=== PATIENT | female | born 1935 | race Caucasian/White ===

== ENCOUNTER 2016-05-23 19:43 | Observation (INO) | payer MEDICARE, BC ==
[~2016-05-23] VITALS: Ht 165.1 cm; Wt 73.3 kg
[~2016-05-23 19:43] MED LIST: AMLO10TA2 PO; ASPI325T PO; B12-1CHW CHEW; BENI20TA5 PO; CLON0.2D T-DERMAL; DONE10TA7 PO; LOTE0.5S RIGHT EYE; MECL-62 PO; MEMA1TAB2 PO; METO50TA PO; PRAD150C PO; SPIR25TA PO; ZOLO25TA PO
[2016-05-23 20:08] VITALS: BP 138/70; PULSE 59; RESP 18; TEMP 97.6; O2SAT 98
[2016-05-23] MEDS ORDERED: SODIUM CHLORIDE 0.9% FLUSH 5 ML FLUSH IVF PRN (20:45)
--- NOTE | 2016-05-23 20:59 | PD ---
HPI Chief Complaint: GI Complaint Time Seen by Provider: 20:33 Travel History International Travel<30 days: No Contact w/Intl Traveler<30days: No Traveled to known affect area: No History of Present Illness HPI 80-year-old female here for evaluation of bright red blood per rectum. Patient notices symptoms yesterday. Chart review shows that the patient has history of hemorrhoids. She is having some rectal discomfort. She states that she notices the blood on the toilet paper as well as in her toilet bowl. Chart review also shows that she is on Pradaxa and aspirin, however the patient does not believe she is taking his medications any more. No chest pain or dyspnea. No lightheadedness or syncopal episodes. Patient has dementia. Apparently she goes to her neighbor's house twice a day where her neighbor administers her medications. It is unclear if she is still on Pradaxa and aspirin. PFSH Past Medical History Asthma: No Blood Disorders: No Anxiety: Yes Depression: No Heart Rhythm Problems: Yes Cancer: No Cardiovascular Problems: Yes (HTN) High Cholesterol: Yes Chemotherapy: No Chest Pain: Yes Congestive Heart Failure: No COPD: Yes Cerebrovascular Accident: Yes Coronary Artery Disease: Yes Dementia: Yes Diabetes: Yes Patient Takes Glucophage: No Diminished Hearing: Yes Endocrine: Yes Gastrointestinal Disorders: No GERD: Yes Genitourinary: No Hypertension: Yes Immune Disorder: No Medical other: Yes (PT CONFUSED REGARDING HX, POOR HISTORIAN, STATES " I CANT REMEMBER " ) Musculoskeletal: No Neurologic: Yes (CASAS'S PALSY, "black out spells", vertigo ) Psychiatric: No Reproductive: No Respiratory: No Immunizations Current: Yes Radiation Therapy: No Sleep Apnea: No Thyroid Disease: No Tetanus Vaccination: < 5 Years Influenza Vaccination: Yes : 2 Para: 2 Past Surgical History Appendectomy: Yes Cholecystectomy: Yes Coronary Stent: Yes Eye Surgery: Yes (RIGHT EYE LENS IMPLANT) Hysterectomy: Yes Joint Replacement: Yes (BILATERAL KNEE REPLACEMENT) Tonsillectomy: Yes Other Surgery: Yes Social History Alcohol Use: No Tobacco Use: No Substance Use: No Allergies-Medications (Allergen,Severity, Reaction): Coded Allergies: Codeine (Verified Allergy, Severe, ITCHING; PALPITATIONS, 03/08/16) Darvon (Verified Allergy, Severe, ITCHING; PALPITATIONS, 03/08/16) Keflex (Verified Allergy, Severe, ITCHING; PALPITATIONS, 03/08/16) Penicillin (Verified Allergy, Severe, ITCHING; PALPITATIONS, 03/08/16) Sulfa (Verified Allergy, Severe, ITCHING; PALPITATIONS, 03/08/16) Uncoded Allergies: FLUORESCEIN DYE (Allergy, Severe, DIZZINESS; PASSED OUT; PALPITATIONS, 04/30) RED ANTS (Allergy, Severe, RASH; DIFFICULTY BREATHING; ITCHING, 04/30/07) Reported Meds & Prescriptions Reported Meds & Active Scripts Active Meclizine (Meclizine HCl) 25 Mg Tab 25 Mg PO TID PRN 10 Days Reported Lotemax Opth Drops (Loteprednol Etabonate) 0.5 % Soln 1 Drop RIGHT EYE DAILY Pradaxa (Dabigatran) 150 Mg Cap 150 Mg PO BID [id number] (Methylcobalamin) 1 Mg Chew 1 Mg CHEW DAILY Aspirin 325 Mg Tab 325 Mg PO DAILY Amlodipine (Amlodipine Besylate) 10 Mg Tab 10 Mg PO DAILY Metoprolol Tartrate 50 Mg Tab 50 Mg PO BID Spironolactone 25 Mg Tab 25 Mg PO DAILY Donepezil 10 Mg Tab 10 Mg PO DAILY Clonidine 168 HR Patch (Clonidine HCl) 0.2 Mg/24 Hr Patch 1 Patch T-DERMAL Q7D Memantine 10 Mg Tab 10 Mg PO BID Benicar (Olmesartan) 20 Mg Tab 20 Mg PO DAILY Zoloft (Sertraline HCl) 25 Mg Tab 50 Mg PO DAILY Review of Systems Except as stated in HPI: all other systems reviewed are Neg Physical Exam Narrative GENERAL: Well-developed, well-nourished, comfortable, no acute distress. SKIN: Warm and dry. HEAD: Atraumatic. Normocephalic. EYES: Pupils equal and round. No scleral icterus. No injection or drainage. ENT: Mucous membranes pink and moist. CARDIOVASCULAR: Regular rate and rhythm. No murmur appreciated. RESPIRATORY: No accessory muscle use. Clear to auscultation. Breath sounds equal bilaterally. GASTROINTESTINAL: Abdomen soft, non-tender, nondistended. RECTUM: Bright red blood per rectum. External skin tags. No masses. No fissures. MUSCULOSKELETAL: No obvious deformities. No clubbing. No cyanosis. No edema. NEUROLOGICAL: Awake and alert. No obvious cranial nerve deficits. Motor grossly within normal limits. Normal speech. PSYCHIATRIC: Appropriate mood and affect; insight and judgment normal. Data Data Last Documented VS Vital Signs Date Time Temp Pulse Resp B/P Pulse Ox O2 Delivery O2 Flow Rate FiO2 05/23/16 20:08 97.6 59 18 138/70 98 Orders Complete Blood Count With Diff (05/23/16 20:45) Comprehensive Metabolic Panel (05/23/16 20:45) Lipase (05/23/16 20:45) Prothrombin Time / Inr (Pt) (05/23/16 20:45) Act Partial Throm Time (Ptt) (05/23/16 20:45) Urinalysis - C+S If Indicated (05/23/16 20:45) Iv Access Insert/Monitor (05/23/16 20:45) Ecg Monitoring (05/23/16 20:45) Oximetry (05/23/16 20:45) Sodium Chloride 0.9% Flush (Ns Flush) (05/23/16 20:45) Type And Screen (05/23/16 20:45) Labs Laboratory Tests Test 05/23/16 21:00 White Blood Count 8.7 TH/MM3 Red Blood Count 4.17 MIL/MM3 Hemoglobin 12.3 GM/DL Hematocrit 36.7 % Mean Corpuscular Volume 88.1 FL Mean Corpuscular Hemoglobin 29.5 PG Mean Corpuscular Hemoglobin 33.5 % Concent Red Cell Distribution Width 12.9 % Platelet Count 205 TH/MM3 Mean Platelet Volume 7.9 FL Neutrophils (%) (Auto) 59.2 % Lymphocytes (%) (Auto) 24.9 % Monocytes (%) (Auto) 10.1 % Eosinophils (%) (Auto) 5.2 % Basophils (%) (Auto) 0.6 % Neutrophils # (Auto) 5.0 TH/MM3 Lymphocytes # (Auto) 2.2 TH/MM3 Monocytes # (Auto) 0.9 TH/MM3 Eosinophils # (Auto) 0.5 TH/MM3 Basophils # (Auto) 0.1 TH/MM3 CBC Comment DIFF FINAL Differential Comment Prothrombin Time 11.2 SEC Prothromb Time International 1.0 RATIO Ratio Activated Partial 33.6 SEC Thromboplast Time Urine Color YELLOW Urine Turbidity CLEAR Urine pH 6.0 Urine Specific [place] 1.020 Urine Protein NEG mg/dL Urine Glucose (UA) NEG mg/dL Urine Ketones NEG mg/dL Urine Occult Blood LARGE Urine Nitrite NEG Urine Bilirubin NEG Urine Leukocyte Esterase TRACE Urine RBC 4-9 /hpf Urine WBC 0-2 /hpf Urine Squamous Epithelial > 8 /hpf Cells Urine Calcium Oxalate Crystals RARE /hpf Urine Hyaline Casts 3-5 /lpf Microscopic Urinalysis Comment CULT NOT INDICATED Sodium Level 143 MEQ/L Potassium Level 4.2 MEQ/L Chloride Level 112 MEQ/L Carbon Dioxide Level 22.0 MEQ/L Anion Gap 9 MEQ/L Blood Urea Nitrogen 22 MG/DL Creatinine 1.20 MG/DL Estimat Glomerular Filtration 43 ML/MIN Rate Random Glucose 99 MG/DL Calcium Level 9.3 MG/DL Total Bilirubin 0.3 MG/DL Aspartate Amino Transf 19 U/L (AST/SGOT) Alanine Aminotransferase 21 U/L (ALT/SGPT) Alkaline Phosphatase 64 U/L Total Protein 7.7 GM/DL Albumin 3.6 GM/DL Lipase 264 U/L [facility] Medical Decision Making Medical Screen Exam Complete: Yes Emergency Medical Condition: Yes Differential Diagnosis Lower GI bleed, hemorrhoids, mass, anemia Narrative Course Vital signs show heart rate 59, blood pressure 130/70, pulse ox 90% on room air , oral temp of 97.6F. CBC shows WBC 8.7, hemoglobin 12.2, hematocrit 36.7, platelets 205. CMP is remarkable for BUN 22, creatinine 1.2, GFR 43 which is around her baseline, otherwise unremarkable. Lipase is 264. Coags are within normal limits. UA shows large occult blood, trace site esterase, 4-9 RBCs, rare calcium Esme Crystal, hyaline casts, not suggestive of UTI. Patient does have bright red blood per rectum.. Hemoglobin is within normal limits. She is also not tachycardic or hypotensive. It is unclear if she is still taking her Pradaxa and aspirin or not. The patient also has dementia and lives alone. At this point I believe it is a good idea to admit the patient overnight for observation for serial H&H's and reassessment in the morning. Case discussed with [facility] hospitalist admitting physician Dr. Queen who has agreed to admit the patient to his service for overnight observation. Diagnosis Primary Impression: Rectal bleed Admitting Information Admitting Physician Requests: Observation Jayesh Albrecht MD May 23, 2016 20:59
[2016-05-23 21:21] LABS: BASOPHIL # 0.1 TH/MM3 (0-0.2); BASOPHIL % 0.6 % (0.0-2.0); EOSINOPHIL # 0.5 TH/MM3 (0-0.4); EOSINOPHIL % 5.2 % (0.0-4.0); HEMATOCRIT 36.7 % (35.0-46.0); HEMO FLAGS DIFF FINAL; LYMPH % 24.9 % (9.0-44.0); LYMPHOCYTE # 2.2 TH/MM3 (1.0-4.8); MEAN CELL VOLUME 88.1 FL (80.0-100.0); MEAN CORPUSCULAR HEMOGLOBIN 29.5 PG (27.0-34.0); MEAN CORPUSCULAR HGB CONC 33.5 % (32.0-36.0); MONO % 10.1 % (0.0-8.0); NEUT % 59.2 % (16.0-70.0); PLATELET COUNT 205 TH/MM3 (150-450); RED BLOOD COUNT 4.17 MIL/MM3 (4.00-5.30); RED CELL DISTRIBUTION WIDTH 12.9 % (11.6-17.2); WHITE BLOOD COUNT 8.7 TH/MM3 (4.0-11.0)
[2016-05-23 21:24] LABS: BLOOD, URINE LARGE (NEG); GLUCOSE,URINE NEG (NEG); KETONE, URINE NEG (NEG); NITRITE,URINE NEG (NEG)
[2016-05-23 21:29] LABS: CHLORIDE 112 MEQ/L (98-107); POTASSIUM 4.2 MEQ/L (3.5-5.1); SODIUM (NA) 143 MEQ/L (136-145); URINE COLOR YELLOW (YELLW/STRAW)
[2016-05-23 21:30] LABS: SQUAMOUS EPITHELIAL CELL URINE > 8 /hpf (0-5); WBC, URINE 0-2 /hpf (0-5)
[2016-05-23 21:31] LABS: CALCIUM OXALATE CRYSTALS,URINE RARE /hpf; COMMENT (UR) CULT NOT INDICATED; CULTURE IF INDICATED CULT NOT INDICATED
[2016-05-23 21:33] LABS: ANION GAP 9 MEQ/L (5-15); BLOOD UREA NITROGEN 22 MG/DL (7-18)
[2016-05-23 21:34] LABS: APTT (PATIENT) 33.6 SEC (24.3-30.1); PROTHROMBIN TIME - PATIENT 11.2 SEC (9.8-11.6)
[2016-05-23 21:35] LABS: ALT (GPT) 21 U/L (10-53)
[2016-05-23 21:36] LABS: AST (GOT) 19 U/L (15-37); GLOMERULAR FILTRATION RATE 43 ML/MIN (>89)
[2016-05-23 21:37] LABS: TOTAL BILIRUBIN ADULT 0.3 MG/DL (0.2-1.0)
[2016-05-23 21:38] LABS: ALKALINE PHOSPHATASE 64 U/L (45-117)
[2016-05-23 22:11] VITALS: O2SAT 98
[2016-05-23 22:12] VITALS: BP 121/65; PULSE 58; RESP 18; O2SAT 98
[2016-05-23] MEDS ORDERED: BRIN1SUS2 EACH EYE (22:33)
[2016-05-23 22:55] VITALS: BP 119/63; PULSE 61; RESP 18; O2SAT 98
[2016-05-23] MEDS: SODIUM CHLOR 0.9% 1000 ML INJ 1,000 ML IV SCH (23:57)
[2016-05-24] VITALS (10 sets, daily range): BP systolic 100–137; BP diastolic 47–79; PULSE 53–64; RESP 16–20; TEMP 96.8–97.8; O2SAT 96–98
[2016-05-24 06:47] LABS: HEMATOCRIT 33.6 % (35.0-46.0); MEAN CELL VOLUME 87.2 FL (80.0-100.0); MEAN CORPUSCULAR HEMOGLOBIN 28.7 PG (27.0-34.0); MEAN CORPUSCULAR HGB CONC 32.9 % (32.0-36.0); PLATELET COUNT 189 TH/MM3 (150-450); RED BLOOD COUNT 3.85 MIL/MM3 (4.00-5.30); RED CELL DISTRIBUTION WIDTH 12.8 % (11.6-17.2); REVIEW FLAG FINAL; WHITE BLOOD COUNT 6.1 TH/MM3 (4.0-11.0)
[2016-05-24 06:57] LABS: POTASSIUM 4.3 MEQ/L (3.5-5.1)
[2016-05-24 06:58] LABS: BICARBONATE 23.3 MEQ/L (21.0-32.0)
[2016-05-24] MEDS: DONEPEZIL HCL 5 MG TAB PO SCH (08:54)
[2016-05-24] MEDS: SPIRONOLACTONE 25 MG TAB PO SCH (08:55)
[2016-05-24] MEDS: SERTRALINE HCL 50 MG TAB PO SCH (08:55)
[2016-05-24] MEDS: MEMANTINE HCL 10 MG TAB PO SCH ×2 (08:55→20:08)
[2016-05-24] MEDS: LOSARTAN 50 MG TAB PO SCH (08:56)
[2016-05-24] MEDS ORDERED: LOTEPREDNOL OPTH EACH EYE SCH (09:00)
[2016-05-24] MEDS ORDERED: OLMESARTAN 20 MG PO SCH (09:00)
[2016-05-24] MEDS: METOPROLOL TARTRATE 50 MG TAB PO SCH ×2 (09:01→20:08)
[2016-05-24] MEDS: SODIUM CHLOR 0.9% 1000 ML INJ 1,000 ML IV SCH ×2 (11:25→23:20)
[2016-05-24] MEDS: BRINZOLAMIDE EACH EYE SCH (20:08)
[2016-05-24] MEDS: BRIMONIDINE EACH EYE SCH (20:08)
[2016-05-25] VITALS (9 sets, daily range): BP systolic 118–138; BP diastolic 63–73; PULSE 55–67; RESP 16–18; TEMP 96.3–98.4; O2SAT 95–98
[2016-05-25] MEDS: SODIUM CHLOR 0.9% 1000 ML INJ 1,000 ML IV SCH (05:57)
[2016-05-25] MEDS: METOPROLOL TARTRATE 50 MG TAB PO SCH ×2 (08:59→21:08)
[2016-05-25] MEDS: BRIMONIDINE EACH EYE SCH ×2 (08:59→21:07)
[2016-05-25] MEDS: SPIRONOLACTONE 25 MG TAB PO SCH (08:59)
[2016-05-25] MEDS: MEMANTINE HCL 10 MG TAB PO SCH ×2 (08:59→21:08)
[2016-05-25] MEDS: SERTRALINE HCL 50 MG TAB PO SCH (08:59)
[2016-05-25] MEDS: LOTEPREDNOL OPTH RIGHT EYE SCH (08:59)
[2016-05-25] MEDS: BRINZOLAMIDE EACH EYE SCH ×2 (08:59→21:07)
[2016-05-25] MEDS: DONEPEZIL HCL 5 MG TAB PO SCH (08:59)
[2016-05-25] MEDS: LOSARTAN 50 MG TAB PO SCH (08:59)
--- NOTE | 2016-05-25 11:56 | HHI.PR ---
Subjective History of Present Illness i am ok no N/V no abd pain appetite is ok no fever or chills no cp or sob offers no other c/o forgetful /poor support at home Vitals/Results Intake & Output 05/24/16 05/24/16 05/25/16 15:00 23:00 07:00 Intake Total 1006 ml 655 ml Balance 1006 ml 655 ml Intake Oral 450 ml IV Total 556 ml 655 ml # Voids 1 6 Vital Signs Vital Signs Date Time Temp Pulse Resp B/P Pulse Ox O2 Delivery O2 Flow Rate FiO2 05/25/16 08:00 96.9 67 18 138/73 96 05/25/16 07:00 62 05/25/16 04:00 96.3 59 18 131/66 96 05/25/16 00:38 97.1 58 16 118/68 95 05/24/16 21:50 53 05/24/16 21:10 97.2 60 20 120/65 98 05/24/16 16:00 96.9 61 18 131/79 98 05/24/16 12:00 96.8 58 18 125/67 97 CBC/BMP: 05/24/16 0615 05/24/16 0615 Physical Exam General General Appearance: No Acute Distress, Comfortable Eyes Eye Exam: Pupils Equal, Sclera White, Extraocular Movement Intact Ears & Nose Ears & Nose Exam: Auditory Canals Normal, Nasal Mucosa [place] Throat Throat Exam: Oral Mucosa [place] & Moist Neck Neck Exam: Neck Supple, Trachea Midline Pulmonary Resp Exam: Clear Bilaterally, Breath Sounds Equal Cardiology CV Exam: Regular, Normal Sinus Rhythm Gastrointestinal/Abdomen GI Exam: Soft, Non-Tender, Bowel Sounds Present Integumentary Skin Exam: Warm, Dry Extremeties Extremities Exam: No Edema, Pedal Pulses Palpable Neurologic Neuro Exam: Alert, Awake, Speech Clear, Moving All Extremities Psychiatric Psych Exam: Appropriate Responses PUD Prophylasis PUD Prophylaxis: Protonix Assessment/Plan Assessment/Plan ASSESSMENT LGI bleed Hx A fib HTN HLP Dementia Depression 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
[2016-05-25 12:21] LABS: HEMATOCRIT 35.5 % (35.0-46.0); MEAN CELL VOLUME 86.8 FL (80.0-100.0); MEAN CORPUSCULAR HEMOGLOBIN 29.3 PG (27.0-34.0); MEAN CORPUSCULAR HGB CONC 33.8 % (32.0-36.0); PLATELET COUNT 199 TH/MM3 (150-450); RED BLOOD COUNT 4.09 MIL/MM3 (4.00-5.30); RED CELL DISTRIBUTION WIDTH 12.8 % (11.6-17.2); REVIEW FLAG FINAL; WHITE BLOOD COUNT 6.3 TH/MM3 (4.0-11.0)
[2016-05-25 12:30] LABS: POTASSIUM 3.9 MEQ/L (3.5-5.1)
--- NOTE | 2016-05-25 12:55 | PD.CONS ---
HPI History of Present Illness This is a 80 year old female who presents with complaints of bright red blood per rectum this occurred the day prior to admission she denies any abdominal pain nausea vomiting diarrhea constipation the patient reports a history of hemorrhoids she also reports having had a colonoscopy years ago she's not aware of what was found at that point in time the patient apparently is supposed to be on Pradaxa and aspirin but it's not clear as to whether she takes these medications or not The onset was apparently sudden and the intensity was mild with no associated symptoms and no exacerbating or alleviating factors PFSH Past Medical History Anxiety, high cholesterol, hypertension COPD, CVA, CAD, diabetes, dementia, reflux, Domingo's palsy Past Surgical History Appendectomy, cholecystectomy, coronary artery stenting, eye surgery, hysterectomy, bilateral knee replacement, tonsillectomy Coded Allergies: Codeine (Verified Allergy, Severe, ITCHING; PALPITATIONS, 03/08/16) Darvon (Verified Allergy, Severe, ITCHING; PALPITATIONS, 03/08/16) Keflex (Verified Allergy, Severe, ITCHING; PALPITATIONS, 03/08/16) Penicillin (Verified Allergy, Severe, ITCHING; PALPITATIONS, 03/08/16) Sulfa (Verified Allergy, Severe, ITCHING; PALPITATIONS, 03/08/16) Uncoded Allergies: FLUORESCEIN DYE (Allergy, Severe, DIZZINESS; PASSED OUT; PALPITATIONS, 04/30) RED ANTS (Allergy, Severe, RASH; DIFFICULTY BREATHING; ITCHING, 04/30/07) Medications Meclizine (Meclizine HCl) 25 Mg Tab 25 Mg PO TID PRN 10 Days Lotemax Opth Drops (Loteprednol Etabonate) 0.5 % Soln 1 Drop RIGHT EYE DAILY Pradaxa (Dabigatran) 150 Mg Cap 150 Mg PO BID [id number] (Methylcobalamin) 1 Mg Chew 1 Mg CHEW DAILY Aspirin 325 Mg Tab 325 Mg PO DAILY Amlodipine (Amlodipine Besylate) 10 Mg Tab 10 Mg PO DAILY Metoprolol Tartrate 50 Mg Tab 50 Mg PO BID Spironolactone 25 Mg Tab 25 Mg PO DAILY Donepezil 10 Mg Tab 10 Mg PO DAILY Clonidine 168 HR Patch (Clonidine HCl) 0.2 Mg/24 Hr Patch 1 Patch T-DERMAL Q7D Memantine 10 Mg Tab 10 Mg PO BID Benicar (Olmesartan) 20 Mg Tab 20 Mg PO DAILY Zoloft (Sertraline HCl) 25 Mg Tab 50 Mg PO DAILY Family History Noncontributory Social History No alcohol or tobacco Review of Systems ROS Review of systems Patient denies any headache dizziness blurry vision, denies any chest pain shortness of breath cough fever chills, Denies any palpitations or fatigue denies any polyuria dysuria hematuria, denies any numbness tingling or weakness, denies any skin rash pruritus or jaundice, denies any easy bruising or bleeding tendency, denies any recent change in mood GI Exam Vitals I&O Vital Signs Date Time Temp Pulse Resp B/P Pulse Ox O2 Delivery O2 Flow Rate FiO2 05/25/16 08:00 96.9 67 18 138/73 96 05/25/16 07:00 62 05/25/16 04:00 96.3 59 18 131/66 96 05/25/16 00:38 97.1 58 16 118/68 95 05/24/16 21:50 53 05/24/16 21:10 97.2 60 20 120/65 98 05/24/16 16:00 96.9 61 18 131/79 98 I/O 05/24/16 05/24/16 05/24/16 05/25/16 05/25/16 05/25/16 07:00 15:00 23:00 07:00 15:00 23:00 Intake Total 1006 ml 655 ml Balance 1006 ml 655 ml Intake Oral 450 ml IV Total 556 ml 655 ml # Voids 1 6 Laboratory Test 05/25/16 12:16 White Blood Count 6.3 TH/MM3 Red Blood Count 4.09 MIL/MM3 Hemoglobin 12.0 GM/DL Hematocrit 35.5 % Mean Corpuscular Volume 86.8 FL Mean Corpuscular Hemoglobin 29.3 PG Mean Corpuscular Hemoglobin 33.8 % Concent Red Cell Distribution Width 12.8 % Platelet Count 199 TH/MM3 Mean Platelet Volume 7.3 FL Physical Examination HEENT: Pupils round and reactive to light; normocephalic; atraumatic; no jaundice. Throat is clear. NECK: Neck is supple, no JVD, no lymphadenopathy. CHEST: Chest is clear to auscultation and percussion. CARDIAC: Regular rate and rhythm with no murmur gallop or rubs. ABDOMEN: Soft, nondistended, nontender; no hepatosplenomegaly; bowel sounds are present in all four quadrants. EXTREMITIES: No clubbing, cyanosis, or edema. SKIN: Normal; no rash; no jaundice. TRADER FIXED INCOME: No focal deficits; alert and oriented times 3 she is aware of who the president is and where she is at and what day it is Assessment and Plan Plan Rectal bleeding of unclear etiology Patient is advised colonoscopy Agree with current supportive care Monitor labs and transfuse as needed Chinedu Gomez MD May 25, 2016 12:55
[2016-05-25] MEDS ORDERED: PEG (High)/E-LYTE SOLN 4000 ML BTL PO ONE (13:30)
[2016-05-26] VITALS (8 sets, daily range): BP systolic 105–142; BP diastolic 51–72; PULSE 53–59; RESP 16–20; TEMP 96.6–98.7; O2SAT 96–100
[2016-05-26] MEDS: SODIUM CHLOR 0.9% 1000 ML INJ 1,000 ML IV SCH ×2 (04:40→10:06)
[2016-05-26 06:08] LABS: HEMATOCRIT 35.3 % (35.0-46.0); MEAN CELL VOLUME 87.7 FL (80.0-100.0); MEAN CORPUSCULAR HEMOGLOBIN 28.8 PG (27.0-34.0); MEAN CORPUSCULAR HGB CONC 32.9 % (32.0-36.0); PLATELET COUNT 196 TH/MM3 (150-450); RED BLOOD COUNT 4.03 MIL/MM3 (4.00-5.30); RED CELL DISTRIBUTION WIDTH 12.8 % (11.6-17.2); REVIEW FLAG FINAL; WHITE BLOOD COUNT 6.5 TH/MM3 (4.0-11.0)
[2016-05-26] MEDS: LOSARTAN 50 MG TAB PO SCH (08:15)
[2016-05-26] MEDS: DONEPEZIL HCL 5 MG TAB PO SCH (08:15)
[2016-05-26] MEDS: SPIRONOLACTONE 25 MG TAB PO SCH (08:15)
[2016-05-26] MEDS: METOPROLOL TARTRATE 50 MG TAB PO SCH (08:15)
[2016-05-26] MEDS: BRINZOLAMIDE EACH EYE SCH (08:16)
[2016-05-26] MEDS: BRIMONIDINE EACH EYE SCH (08:16)
[2016-05-26] MEDS: SERTRALINE HCL 50 MG TAB PO SCH (08:16)
[2016-05-26] MEDS: MEMANTINE HCL 10 MG TAB PO SCH (08:16)
[2016-05-26] MEDS: LOTEPREDNOL OPTH RIGHT EYE SCH (08:17)
--- NOTE | 2016-05-26 12:50 | GIPROC ---
[facility] [address] [place] [address], [id number] COLONOSCOPY PROCEDURE REPORT EXAM DATE: 05/26/2016 PATIENT NAME: Jessica Miller MR #: [id number] BIRTHDATE: 1935 ENDOSCOPIST: Que Sanchez MD ORDER #: [id number] STAND IN: Marlin Camacho and Hima Arias STATUS: inpatient INDICATIONS: The patient is a 80 yr old female here for a colonoscopy due to anal bleeding PROCEDURE PERFORMED: Colonoscopy, diagnostic MEDICATIONS: None and Per Anesthesia. PREP QUALITY: fair ESTIMATED BLOOD LOSS: None CONSENT: The patient understands the risks and benefits of the procedure and understands that these risks include, but are not limited to: sedation, allergic reaction, infection, perforation and/or bleeding. Alternative means of evaluation and treatment include, among others: physical exam, x-rays, and/or surgical intervention. The patient elects to proceed with this endoscopic procedure. medical equipment was checked for proper function. Hand hygiene and appropriate measures for infection prevention was taken. After the risks, benefits and alternatives of the procedure were thoroughly explained, Informed consent was verified, confirmed and timeout was successfully executed by the treatment team. A digital exam revealed an anal fissure The Pentax [id number] endoscope was introduced through the anus and advanced to the cecum, which was identified by both the appendix and ileocecal valve. The instrument was then slowly withdrawn as the colon was fully examined. COLON FINDINGS: Small anal fissure, no bleeding. Mild diverticulosis was noted in the sigmoid colon. Some stool throughout the colon. The colon mucosa was otherwise normal. No sign of active bleed. Retroflexed views revealed an anal fissure and Retroflexed views revealed medium internal hemorrhoids The scope was then completely withdrawn from the patient and the procedure terminated. ADVERSE EVENTS: There were no complications. IMPRESSIONS: 1. Small anal fissure, no bleeding 2. Mild diverticulosis was noted in the sigmoid colon 3. Some stool throughout the colon 4. The colon mucosa was otherwise normal 5. No sign of active bleed 6. Retroflexed views revealed an anal fissure 7. Retroflexed views revealed medium internal hemorrhoids 8. Revealed an anal fissure RECOMMENDATIONS: 1. Yearly hemoccult 2. High fiber diet 3. Avoid constipation ok to feed patient ok to DC home from GI stand RECALL: Return 5 years Colonoscopy Que Sanchez MD eSigned: Que Sanchez MD 05/26/2016 12:49 PM cc: PATIENT NAME: Jessica Miller MR#: [id number]
--- NOTE | 2016-05-26 12:53 | HHI.GIFU ---
Subjective Remarks doing well. no active bleed, tolerated prep Objective Vitals I&O Vital Signs Date Time Temp Pulse Resp B/P Pulse Ox O2 Delivery O2 Flow Rate FiO2 05/26/16 12:00 98.7 55 20 124/67 96 05/26/16 11:57 98.2 55 16 142/71 100 05/26/16 08:00 96.9 55 20 140/72 96 05/26/16 07:34 53 05/26/16 04:00 97.6 59 16 110/60 97 05/26/16 00:00 96.6 55 18 105/51 96 05/25/16 20:53 98.4 58 16 119/65 96 05/25/16 20:09 62 05/25/16 16:00 98.0 67 18 135/63 98 05/25/16 15:00 60 I/O 05/25/16 05/25/16 05/25/16 05/26/16 05/26/16 05/26/16 07:00 15:00 23:00 07:00 15:00 23:00 Intake Total 655 ml 850 ml 1280 ml 764 ml Balance 655 ml 850 ml 1280 ml 764 ml Intake Oral 850 ml IV Total 655 ml 1280 ml 764 ml # Voids 6 4 3 1 # Bowel Movements 1 3 1 Laboratory Laboratory Tests Test 05/26/16 05:28 White Blood Count 6.5 Red Blood Count 4.03 Hemoglobin 11.6 Hematocrit 35.3 Mean Corpuscular Volume 87.7 Mean Corpuscular Hemoglobin 28.8 Mean Corpuscular Hemoglobin 32.9 Concent Red Cell Distribution Width 12.8 Platelet Count 196 Mean Platelet Volume 7.9 Physical Exam HEENT: Pupils round and reactive to light; normocephalic; atraumatic; no jaundice. Throat is clear. NECK: Neck is supple, no JVD, no lymphadenopathy. CHEST: Chest is clear to auscultation and percussion. CARDIAC: Regular rate and rhythm with no murmur gallop or rubs. ABDOMEN: Soft, nondistended, nontender; no hepatosplenomegaly; bowel sounds are present in all four quadrants. EXTREMITIES: No clubbing, cyanosis, or edema. SKIN: Normal; no rash; no jaundice. SPRAY MAKER: No focal deficits; alert and oriented times three. Assessment and Plan Plan Rectal bleeding most likely from fissure or hemorrhoids, no active bleed now on colonoscopy today may feeds patient preoperation H avoid constipation Agree with current supportive care ok to DC home from GI stand Que Sanchez MD May 26, 2016 12:53
[2016-05-26] MEDS ORDERED: PETROLEUM/SHARK LIVER OIL 60 GM TUBE RECTAL PRN (13:00)
[2016-05-26] MEDS ORDERED: PROPOFOL 200 MG/20 ML AMP IV ONE (13:02)
--- NOTE | 2016-05-26 15:06 | HHI.PR ---
Subjective History of Present Illness feels well no N/V no abd pain no more bleeding appetite is ok no fever or chills no cp or sob offers no other c/o forgetful Vitals/Results Intake & Output 05/25/16 05/25/16 05/26/16 15:00 23:00 07:00 Intake Total 850 ml 1280 ml 764 ml Balance 850 ml 1280 ml 764 ml Intake Oral 850 ml IV Total 1280 ml 764 ml # Voids 4 3 1 # Bowel Movements 1 3 Vital Signs Vital Signs Date Time Temp Pulse Resp B/P Pulse Ox O2 Delivery O2 Flow Rate FiO2 05/26/16 13:15 57 16 139/69 100 05/26/16 13:00 57 16 146/72 100 05/26/16 12:50 98.0 58 16 133/63 100 05/26/16 12:00 98.7 55 20 124/67 96 05/26/16 11:57 98.2 55 16 142/71 100 05/26/16 08:00 96.9 55 20 140/72 96 05/26/16 07:34 53 05/26/16 04:00 97.6 59 16 110/60 97 05/26/16 00:00 96.6 55 18 105/51 96 05/25/16 20:53 98.4 58 16 119/65 96 05/25/16 20:09 62 05/25/16 16:00 98.0 67 18 135/63 98 CBC/BMP: 05/26/16 0528 05/25/16 1216 Lab Results Laboratory Tests Test 05/26/16 05:28 White Blood Count 6.5 TH/MM3 Red Blood Count 4.03 MIL/MM3 Hemoglobin 11.6 GM/DL Hematocrit 35.3 % Mean Corpuscular Volume 87.7 FL Mean Corpuscular Hemoglobin 28.8 PG Mean Corpuscular Hemoglobin 32.9 % Concent Red Cell Distribution Width 12.8 % Platelet Count 196 TH/MM3 Mean Platelet Volume 7.9 FL Physical Exam General General Appearance: No Acute Distress, Comfortable Eyes Eye Exam: Pupils Equal, Sclera White, Extraocular Movement Intact Ears & Nose Ears & Nose Exam: Auditory Canals Normal, Nasal Mucosa [place] Throat Throat Exam: Oral Mucosa [place] & Moist Neck Neck Exam: Neck Supple, Trachea Midline Pulmonary Resp Exam: Clear Bilaterally, Breath Sounds Equal Cardiology CV Exam: Regular, Normal Sinus Rhythm Gastrointestinal/Abdomen GI Exam: Soft, Non-Tender, Bowel Sounds Present Integumentary Skin Exam: Warm, Dry Extremeties Extremities Exam: No Edema, Pedal Pulses Palpable Neurologic Neuro Exam: Alert, Awake, Speech Clear, Moving All Extremities Psychiatric Psych Exam: Appropriate Responses PUD Prophylasis PUD Prophylaxis: Protonix Assessment/Plan Assessment/Plan ASSESSMENT LGI bleed Hx A fib HTN HLP Hx TIA Dementia Depression 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
--- NOTE | 2016-05-26 15:27 | HHI.FF ---
Face to Face Verification Diagnosis: (1) Rectal bleed (2) Paroxysmal atrial fibrillation (3) Hypertension (4) Hyperlipemia (5) Dementia Physical Therapy Order: Evaluate and Treat, Improve ambulation, Strength and gait training Home Health Nursing Order: Medical education Medication education-adverse effect Cashier Receptionist Order: To Evaluate: Living conditions/environment, Support services Order: To Provide: Long range planning I have seen patient Jessica Miller on 05/26/16. My clinical findings support the need for the requested home health care services because: Ltd mobility - disease progression Deconditioned w/ increased weakness Limited ability to care for self I certify that my clinical findings support that this patient is homebound because: Impaired cognitive ability/safety Unsafe to leave home unassisted Unable to use public transportation Mary Grace Queen MD May 26, 2016 15:27
--- NOTE | 2016-06-03 09:09 | MD ---
cc: SHIRAZ DONALD ADMISSION DATE: 05/23/2016 DISCHARGE DATE: 05/26/[address] Yoli Robles FINAL DIAGNOSIS 1. Lower GI bleeding/hematochezia. 2. Internal hemorrhoids and fissures. 3. Diverticulosis 4. History of atrial fibrillation. 5. Hypertension 6. History of TIA. 7. Depression 8. History of dementia. 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 She came to the hospital on May 23, 2016 complaining of lower GI bleeding of two or three days duration. Upon arrival, she was noted to be hemodynamically stable. She was Pradaxa for her atrial fibrillation. Due to her advanced age and need for anticoagulation, she was admitted to the hospital for observation. We monitored her H&H and put her on IV fluids, consulted GI. Dr. Gomez saw the patient. He recommended diagnostic colonoscopy which was done this morning by his partner. Colonoscopy showed evidence of internal hemorrhoids and fissure. No evidence of mass lesions, polyp or active bleeding. The patient's hemoglobin and hematocrit remained stable during her stay in the hospital. The patient has a high score due to hypertension, age, and prior history of TIA, about 4 and recommended to resume Pradaxa. marketing services manager were consulted to arrange home health care to assist the patient in ablation and gait training. The patient lives at home with her son and she has a caregiver who raised some concern about relationship between mother and son and we are asking manager social responsibility to arrange home visit by social security benefits interviewer to evaluate the patient's safety at home. DISCHARGE DISPOSITION The patient is being discharged today in stable condition. She will go home with home health care. DISCHARGE MEDICATIONS See attached med reconciliation sheet. FOLLOWUP The patient is advised to follow up with her primary care physician, Dr. Aga Robles in five to seven days. She is to also follow up with GI in one months. MD SHANT De Jesus/PILI /4:37 PM 8:57 AM
== END 2016-05-26 17:08 | disposition home or self-care (01) ==
LOC: PHED 19:43 → PHEDA 22:05 → PHEDH 05-24 01:05 → PH3B 05-24 12:18
PROVIDERS: ADMIT Specialist; ATTEND Specialist
DX: K57.31 Diverticulosis of large intestine without perforation or abscess with bleeding (principal); K60.2 Anal fissure, unspecified; I25.10 Atherosclerotic heart disease of native coronary artery without angina pectoris; I10 Essential (primary) hypertension; I48.91 Unspecified atrial fibrillation; J44.9 Chronic obstructive pulmonary disease, unspecified; E11.9 Type 2 diabetes mellitus without complications; E78.5 Hyperlipidemia, unspecified; F03.90 Unspecified dementia, unspecified severity, without behavioral disturbance, psychotic disturbance, mood disturbance, and anxiety; F32.9 Major depressive disorder, single episode, unspecified; H54.41 Blindness, right eye, normal vision left eye; E78.00 Pure hypercholesterolemia, unspecified; H91.90 Unspecified hearing loss, unspecified ear; M19.90 Unspecified osteoarthritis, unspecified site; K21.9 Gastro-esophageal reflux disease without esophagitis; Z79.01 Long term (current) use of anticoagulants; Z86.73 Personal history of transient ischemic attack (TIA), and cerebral infarction without residual deficits; Z95.5 Presence of coronary angioplasty implant and graft; Z96.653 Presence of artificial knee joint, bilateral
CPT/HCPCS: 00810; 45378; 80048; 80053; 81001; 83690; 85025; 85027; 85610; 85730; 86850; 86900; 86901; 99284; G0378; J7030

== ENCOUNTER 2016-06-02 06:05 | Observation (INO) | payer MEDICARE, BC ==
[2016-06-02] VITALS (10 sets, daily range): BP systolic 118–163; BP diastolic 64–76; PULSE 19–63; RESP 16–22; O2SAT 95–100
[~2016-06-02] VITALS: Ht 162.6 cm; Wt 70.0 kg
[~2016-06-02 06:05] MED LIST changes: -ASPI325T PO; +BRIN1SUS2 EACH EYE; -CLON0.2D T-DERMAL; -MECL-62 PO
[2016-06-02] MEDS ORDERED: SODIUM CHLORIDE 0.9% FLUSH 10 ML FLUSH IVF PRN (06:45)
--- NOTE | 2016-06-02 06:51 | PD ---
HPI Chief Complaint: Chest Pain Time Seen by Provider: 06:37 Travel History International Travel<30 days: No Contact w/Intl Traveler<30days: No Traveled to known affect area: No History of Present Illness HPI The patient's 80 years old and arrives by EMS. She is feeling quite dizzy at home. She had retrosternal chest pain. Shortness of breath reported. Nausea reported. The pain severity was 8/10 decreased to 3/10 after nitroglycerin. Second nitroglycerin was given and upon arrival to the ER the patient has no chest pain. She took a baby aspirin. He complains of dizziness in the ER however is unable to establish lightheadedness or vertigo on exam. She does not recall the names of her medications. According to EMS the patient is at her baseline mental status which is AOx2, unaware of time. PFSH Past Medical History Asthma: No Blood Disorders: No Anxiety: Yes Depression: No Heart Rhythm Problems: Yes Cancer: No Cardiovascular Problems: Yes (HTN) High Cholesterol: Yes Chemotherapy: No Chest Pain: No Congestive Heart Failure: No COPD: Yes Cerebrovascular Accident: Yes Coronary Artery Disease: Yes Dementia: Yes Diabetes: Yes Patient Takes Glucophage: No (Patient unable to verify medications at this time ) Diminished Hearing: Yes Endocrine: Yes Gastrointestinal Disorders: Yes (BLOOD IN STOOL PER PATIENT REPORT) GERD: Yes Genitourinary: No Hypertension: Yes Immune Disorder: No Musculoskeletal: No Neurologic: Yes (CASAS'S PALSY, "black out spells", vertigo ) Psychiatric: Yes Reproductive: No Respiratory: Yes Immunizations Current: Yes Radiation Therapy: No Sleep Apnea: No Thyroid Disease: No Tetanus Vaccination: Unknown Influenza Vaccination: Yes : 2 Para: 2 Past Surgical History Appendectomy: Yes Cholecystectomy: Yes Coronary Stent: Yes Eye Surgery: Yes (RIGHT EYE LENS IMPLANT) Hysterectomy: Yes Joint Replacement: Yes (BILATERAL KNEE REPLACEMENT) Tonsillectomy: Yes Other Surgery: Yes Social History Alcohol Use: No Tobacco Use: No Substance Use: No Allergies-Medications (Allergen,Severity, Reaction): Coded Allergies: Codeine (Verified Allergy, Severe, ITCHING; PALPITATIONS, 06/02/16) Darvon (Verified Allergy, Severe, ITCHING; PALPITATIONS, 06/02/16) Keflex (Verified Allergy, Severe, ITCHING; PALPITATIONS, 06/02/16) Penicillin (Verified Allergy, Severe, ITCHING; PALPITATIONS, 06/02/16) Sulfa (Verified Allergy, Severe, ITCHING; PALPITATIONS, 06/02/16) Uncoded Allergies: FLUORESCEIN DYE (Allergy, Severe, DIZZINESS; PASSED OUT; PALPITATIONS, 04/30) RED ANTS (Allergy, Severe, RASH; DIFFICULTY BREATHING; ITCHING, 04/30/07) Reported Meds & Prescriptions Reported Meds & Active Scripts Active Reported Simbrinza Opth Drops (Brinzolamide-Brimonidine Opth Drops) 1-0.2% Susp 1 Drop EACH EYE BID Lotemax Opth Drops (Loteprednol Etabonate) 0.5 % Soln 1 Drop RIGHT EYE DAILY Pradaxa (Dabigatran) 150 Mg Cap 150 Mg PO DAILY [id number] (Methylcobalamin) 1 Mg Chew 1 Mg CHEW DAILY Amlodipine (Amlodipine Besylate) 10 Mg Tab 10 Mg PO DAILY Metoprolol Tartrate 50 Mg Tab 50 Mg PO BID Spironolactone 25 Mg Tab 25 Mg PO DAILY Donepezil 10 Mg Tab 10 Mg PO DAILY Memantine 10 Mg Tab 10 Mg PO BID Benicar (Olmesartan) 20 Mg Tab 20 Mg PO DAILY Zoloft (Sertraline HCl) 25 Mg Tab 50 Mg PO DAILY Review of Systems Except as stated in HPI: all other systems reviewed are Neg Physical Exam Narrative GENERAL: 80-year-old female pleasant well-nourished well-developed SKIN: Focused skin assessment warm/dry. HEAD: Atraumatic. Normocephalic. EYES: Pupils equal and round. No scleral icterus. No injection or drainage. No nystagmus ENT: No nasal bleeding or discharge. Mucous membranes pink and moist. NECK: Trachea midline. No JVD. CARDIOVASCULAR: Regular rate and rhythm. No murmur appreciated. RESPIRATORY: No accessory muscle use. Clear to auscultation. Breath sounds equal bilaterally. GASTROINTESTINAL: Abdomen soft, non-tender, nondistended. Hepatic and splenic margins not palpable. MUSCULOSKELETAL: No obvious deformities. No clubbing. No cyanosis. No edema. NEUROLOGICAL: Awake and alert. No obvious cranial nerve deficits. Motor grossly within normal limits. Normal speech. PSYCHIATRIC: Appropriate mood and affect; insight and judgment normal. Data Data Last Documented VS Vital Signs Date Time Temp Pulse Resp B/P Pulse Ox O2 Delivery O2 Flow Rate FiO2 06/02/16 06:13 62 06/02/16 06:07 22 118/64 100 Orders Electrocardiogram (06/02/16 06:37) Ckmb (Isoenzyme) Profile (06/02/16 06:37) Complete Blood Count With Diff (06/02/16 06:37) Comprehensive Metabolic Panel (06/02/16 06:37) Magnesium (Mg) (06/02/16 06:37) Prothrombin Time / Inr (Pt) (06/02/16 06:37) Act Partial Throm Time (Ptt) (06/02/16 06:37) Troponin I (06/02/16 06:37) Lipase (06/02/16 06:37) Chest, Single Ap (06/02/16 06:37) Ecg Monitoring (06/02/16 06:37) Iv Access Insert/Monitor (06/02/16 06:37) Oximetry (06/02/16 06:37) Oxygen Administration (06/02/16 06:37) Sodium Chloride 0.9% Flush (Ns Flush) (06/02/16 06:45) Urinalysis - C+S If Indicated (06/02/16 06:37) Labs Laboratory Tests Test 06/02/16 06:44 White Blood Count 6.8 TH/MM3 Red Blood Count 3.82 MIL/MM3 Hemoglobin 11.4 GM/DL Hematocrit 32.8 % Mean Corpuscular Volume 85.9 FL Mean Corpuscular Hemoglobin 30.0 PG Mean Corpuscular Hemoglobin 34.9 % Concent Red Cell Distribution Width 13.6 % Platelet Count 220 TH/MM3 Mean Platelet Volume 8.3 FL Neutrophils (%) (Auto) 63.1 % Lymphocytes (%) (Auto) 22.9 % Monocytes (%) (Auto) 8.9 % Eosinophils (%) (Auto) 4.6 % Basophils (%) (Auto) 0.5 % Neutrophils # (Auto) 4.3 TH/MM3 Lymphocytes # (Auto) 1.6 TH/MM3 Monocytes # (Auto) 0.6 TH/MM3 Eosinophils # (Auto) 0.3 TH/MM3 Basophils # (Auto) 0.0 TH/MM3 CBC Comment DIFF FINAL Differential Comment Prothrombin Time 10.6 SEC Prothromb Time International 1.0 RATIO Ratio Activated Partial 26.4 SEC Thromboplast Time MDM Medical Decision Making Medical Screen Exam Complete: Yes Emergency Medical Condition: Yes Medical Record Reviewed: Yes Differential Diagnosis NSTEMI, unstable angina, coronary vasospasm, PE, PTX, aortic dissection, pericarditis, myocarditis, endocarditis, PNA, esophageal disease, aneurysm, musculoskeletal etiologies, anxiety, cocaine/sympathomimetic abuse Narrative Course Chest pain evaluation initiated. Oncoming provider to follow-up results and disposition. Wil Cuevas MD Jun 02, 2016 06:51
[2016-06-02 07:06] LABS: AUTOMATED NEUTROPHIL # 4.3 TH/MM3 (1.8-7.7); BASOPHIL % 0.5 % (0.0-2.0); EOSINOPHIL # 0.3 TH/MM3 (0-0.4); EOSINOPHIL % 4.6 % (0.0-4.0); HEMATOCRIT 32.8 % (35.0-46.0); HEMO FLAGS DIFF FINAL; LYMPH % 22.9 % (9.0-44.0); LYMPHOCYTE # 1.6 TH/MM3 (1.0-4.8); MEAN CELL VOLUME 85.9 FL (80.0-100.0); MEAN CORPUSCULAR HGB CONC 34.9 % (32.0-36.0); MONO % 8.9 % (0.0-8.0); NEUT % 63.1 % (16.0-70.0); PLATELET COUNT 220 TH/MM3 (150-450); RED BLOOD COUNT 3.82 MIL/MM3 (4.00-5.30); RED CELL DISTRIBUTION WIDTH 13.6 % (11.6-17.2); WHITE BLOOD COUNT 6.8 TH/MM3 (4.0-11.0)
[2016-06-02 07:14] LABS: APTT (PATIENT) 26.4 SEC (24.3-30.1); PROTHROMBIN TIME - PATIENT 10.6 SEC (9.8-11.6)
[2016-06-02 07:24] LABS: ANION GAP 11 MEQ/L (5-15); AST (GOT) 12 U/L (15-37); BICARBONATE 21.8 MEQ/L (21.0-32.0); BLOOD UREA NITROGEN 15 MG/DL (7-18); CHLORIDE 110 MEQ/L (98-107); GLOMERULAR FILTRATION RATE 51 ML/MIN (>89); MAGNESIUM 1.9 MG/DL (1.5-2.5); POTASSIUM 3.8 MEQ/L (3.5-5.1); SODIUM (NA) 143 MEQ/L (136-145)
[2016-06-02 07:26] LABS: BACTERIA, URINE RARE /hpf; BLOOD, URINE NEG (NEG); COMMENT (UR) CULT NOT INDICATED; CULTURE IF INDICATED CULT NOT INDICATED; GLUCOSE,URINE NEG (NEG); HYALINE CAST, URINE 1 /lpf (RARE); KETONE, URINE NEG (NEG); NITRITE,URINE NEG (NEG); PH, URINE 6.5 (5.0-8.5); SQUAMOUS EPITHELIAL CELL URINE 2 /hpf (0-5); URINE COLOR LIGHT-YELLOW (YELLW/STRAW)
[2016-06-02 07:29] LABS: ALKALINE PHOSPHATASE 50 U/L (45-117); ALT (GPT) 16 U/L (10-53); TOTAL BILIRUBIN ADULT 0.3 MG/DL (0.2-1.0)
--- NOTE | 2016-06-02 07:29 | RADRPT ---
EXAM DATE/TIME: 06/02/2016 06:56 [facility] COMPARISON: No previous studies available for comparison. INDICATIONS : Chest pain. MEDICAL HISTORY : Chronic obstructive pulmonary disease. Hypertension Diabetes mellitus type II. SURGICAL HISTORY : Coronary artery stent. ENCOUNTER: Initial ACUITY: 1 day PAIN SCORE: 5/10 LOCATION: Bilateral chest FINDINGS: A single view of the chest demonstrates the lungs to be symmetrically aerated without evidence of mas s, infiltrate or effusion. The cardiomediastinal contours are unremarkable. Osseous structures are intact. CONCLUSION: 1. Mildly tortuous aorta. No focal consolidation or effusion. Remote left rib fractures. Jed Hardin MD on June 02, 2016 at 7:07 Board Certified Radiologist. This report was verified electronically.
[2016-06-02 07:31] LABS: CREATINE KINASE 44 U/L (26-192)
--- NOTE | 2016-06-02 09:48 | PD ---
Data Data Last Documented VS Vital Signs Date Time Temp Pulse Resp B/P Pulse Ox O2 Delivery O2 Flow Rate FiO2 06/02/16 09:00 52 22 159/70 95 06/02/16 07:00 Room Air Orders Electrocardiogram (06/02/16 06:37) Ckmb (Isoenzyme) Profile (06/02/16 06:37) Complete Blood Count With Diff (06/02/16 06:37) Comprehensive Metabolic Panel (06/02/16 06:37) Magnesium (Mg) (06/02/16 06:37) Prothrombin Time / Inr (Pt) (06/02/16 06:37) Act Partial Throm Time (Ptt) (06/02/16 06:37) Troponin I (06/02/16 06:37) Lipase (06/02/16 06:37) Chest, Single Ap (06/02/16 06:37) Ecg Monitoring (06/02/16 06:37) Iv Access Insert/Monitor (06/02/16 06:37) Oximetry (06/02/16 06:37) Oxygen Administration (06/02/16 06:37) Sodium Chloride 0.9% Flush (Ns Flush) (06/02/16 06:45) Urinalysis - C+S If Indicated (06/02/16 06:37) Labs Laboratory Tests Test 06/02/16 06/02/16 06:44 06:45 White Blood Count 6.8 TH/MM3 Red Blood Count 3.82 MIL/MM3 Hemoglobin 11.4 GM/DL Hematocrit 32.8 % Mean Corpuscular Volume 85.9 FL Mean Corpuscular Hemoglobin 30.0 PG Mean Corpuscular Hemoglobin 34.9 % Concent Red Cell Distribution Width 13.6 % Platelet Count 220 TH/MM3 Mean Platelet Volume 8.3 FL Neutrophils (%) (Auto) 63.1 % Lymphocytes (%) (Auto) 22.9 % Monocytes (%) (Auto) 8.9 % Eosinophils (%) (Auto) 4.6 % Basophils (%) (Auto) 0.5 % Neutrophils # (Auto) 4.3 TH/MM3 Lymphocytes # (Auto) 1.6 TH/MM3 Monocytes # (Auto) 0.6 TH/MM3 Eosinophils # (Auto) 0.3 TH/MM3 Basophils # (Auto) 0.0 TH/MM3 CBC Comment DIFF FINAL Differential Comment Prothrombin Time 10.6 SEC Prothromb Time International 1.0 RATIO Ratio Activated Partial 26.4 SEC Thromboplast Time Sodium Level 143 MEQ/L Potassium Level 3.8 MEQ/L Chloride Level 110 MEQ/L Carbon Dioxide Level 21.8 MEQ/L Anion Gap 11 MEQ/L Blood Urea Nitrogen 15 MG/DL Creatinine 1.04 MG/DL Estimat Glomerular Filtration 51 ML/MIN Rate Random Glucose 99 MG/DL Calcium Level 9.0 MG/DL Magnesium Level 1.9 MG/DL Total Bilirubin 0.3 MG/DL Aspartate Amino Transf 12 U/L (AST/SGOT) Alanine Aminotransferase 16 U/L (ALT/SGPT) Alkaline Phosphatase 50 U/L Total Creatine Kinase 44 U/L Troponin I LESS THAN 0.02 NG/ML Total Protein 6.6 GM/DL Albumin 3.1 GM/DL Lipase 326 U/L Urine Color LIGHT-YELLOW Urine Turbidity CLEAR Urine pH 6.5 Urine Specific [place] 1.007 Urine Protein NEG mg/dL Urine Glucose (UA) NEG mg/dL Urine Ketones NEG mg/dL Urine Occult Blood NEG Urine Nitrite NEG Urine Bilirubin NEG Urine Urobilinogen LESS THAN 2.0 MG/DL Urine Leukocyte Esterase NEG Urine RBC 1 /hpf Urine WBC 1 /hpf Urine Squamous Epithelial 2 /hpf Cells Urine Bacteria RARE /hpf Urine Hyaline Casts 1 /lpf Microscopic Urinalysis Comment CULT NOT INDICATED MDM Supervised Visit with ELIZA: No Narrative Course Case checked out to me by Dr. Cuevas at 7 AM. I have evaluated the patient. She is currently chest pain-free but did have some sternal area chest heaviness and she specifically would like it evaluated. Her lab studies are normal including troponin and CK. Her EKG shows no acute ST elevation. She is in a sinus rhythm without significant ectopy. Chest x- ray shows nothing emergent. Patient does not want to do outpatient follow-up. She specifically came in for evaluation of the chest pain so she will be a 23 hour observation in chest pain center to rule out cardiac cause of her symptoms. Diagnosis Primary Impression: Chest pain Qualified Code: R07.2 - Precordial pain Admitting Information Admitting Physician Requests: Observation Gabo Lal MD Jun 02, 2016 09:47
[2016-06-02] MEDS ORDERED: SODIUM CHLORIDE 0.9% FLUSH 5 ML FLUSH IVF PRN (10:15)
[2016-06-02] MEDS ORDERED: ACETAMINOPHEN 500 MG CPLT PO PRN (10:15)
[2016-06-02] MEDS ORDERED: ONDANSETRON HCL 4 MG/2 ML VIAL IV PRN (10:15)
--- NOTE | 2016-06-02 10:18 | HHI.HP ---
[facility] Primary Care Physician Yoli Carmona Chief Complaint Chest pain History of Present Illness This is an 80-year-old female that presents to ED via [facility] with a complaint of chest pain. She states that began early this morning. She states that it woke her up. Points to the center of her chest to indicate where the discomfort was. Does not really know how felt or how long it last. She states she cannot remember that. Denied being short of breath, nauseous, or diaphoretic with her symptoms. She follows with Dr. Cedillo a wire products inspector on an outpatient basis. States her last stress test were years ago. States she hasn't seen her wire products inspector in about a year. Review of Systems General: Patient denies fevers, chills recent, and recent travel HEENT: Patient denies headache, sore throat, difficulty swallowing. Cardiovascular: Has the chest discomfort as mentioned above. Denies sensation of heart beating rapidly or irregularly. No syncope. Denies diaphoresis. Respiratory: Denies shortness of breath or inspirational chest discomfort. Denies coughing wheezing or hemoptysis. GI: Patient denies nausea, vomiting, diarrhea, abdominal pain, bloody stools. Musculoskeletal: Patient denies joint pain or edema. Denies calf pain or edema. Neurovascular: Patient denies numbness, tingling, weakness in extremities. Denies headache. Endocrine: Denies polyuria and polydipsia. Hematologic: Denies easy bruising. Skin: Denies rash or itching. Past Family Social History Allergies: Coded Allergies: Codeine (Verified Allergy, Severe, ITCHING; PALPITATIONS, 06/02/16) Darvon (Verified Allergy, Severe, ITCHING; PALPITATIONS, 06/02/16) Keflex (Verified Allergy, Severe, ITCHING; PALPITATIONS, 06/02/16) Penicillin (Verified Allergy, Severe, ITCHING; PALPITATIONS, 06/02/16) Sulfa (Verified Allergy, Severe, ITCHING; PALPITATIONS, 06/02/16) Uncoded Allergies: FLUORESCEIN DYE (Allergy, Severe, DIZZINESS; PASSED OUT; PALPITATIONS, 04/30) RED ANTS (Allergy, Severe, RASH; DIFFICULTY BREATHING; ITCHING, 04/30/07) Past Medical History Hypertension, dementia, paroxysmal A. fib with an episode of A. fib with RVR December 2015, Domingo's palsy. Denies known CAD, diabetes, and hyperlipidemia. Past Surgical History Bilateral knees, eyes, appendectomy, cholecystectomy, tonsillectomy, and hysterectomy. Reported Medications Reported Meds & Active Scripts Active Reported Simbrinza Opth Drops (Brinzolamide-Brimonidine Opth Drops) 1-0.2% Susp 1 Drop EACH EYE BID Lotemax Opth Drops (Loteprednol Etabonate) 0.5 % Soln 1 Drop RIGHT EYE DAILY Pradaxa (Dabigatran) 150 Mg Cap 150 Mg PO DAILY [id number] (Methylcobalamin) 1 Mg Chew 1 Mg CHEW DAILY Amlodipine (Amlodipine Besylate) 10 Mg Tab 10 Mg PO DAILY Metoprolol Tartrate 50 Mg Tab 50 Mg PO BID Spironolactone 25 Mg Tab 25 Mg PO DAILY Donepezil 10 Mg Tab 10 Mg PO DAILY Memantine 10 Mg Tab 10 Mg PO BID Benicar (Olmesartan) 20 Mg Tab 20 Mg PO DAILY Zoloft (Sertraline HCl) 25 Mg Tab 50 Mg PO DAILY Active Ordered Medications Current Medications Medications (Trade) Dose Ordered Sig/Christian Route Start Time Stop Time Status Last Admin (NS Flush) 2 ml UNSCH PRN IVF 06/02/16 06:45 (NS Flush) 2 ml UNSCH PRN IVF 06/02/16 10:15 UNV (NS Flush) 2 ml BID IVF 06/02/16 21:00 UNV (Tylenol) 500 mg Q4H PRN PO 06/02/16 10:15 UNV (Zofran Inj) 4 mg Q6H PRN IV 06/02/16 10:15 UNV Family History She is not aware of family history of CAD. Social History Patient is a nonsmoker. She denies alcohol or illicit drugs. Physical Exam Vital Signs Vital Signs Date Time Temp Pulse Resp B/P Pulse Ox O2 Delivery O2 Flow Rate FiO2 06/02/16 09:00 52 22 159/70 95 06/02/16 08:00 58 20 149/67 97 06/02/16 07:00 54 19 163/76 97 Room Air 06/02/16 06:13 62 06/02/16 06:07 63 22 118/64 100 Physical Exam GENERAL: This is a well-nourished, well-developed patient, in no apparent distress. Patient speaks in clear complete sentences. Patient is pleasant. HEENT: Head is atraumatic and normocephalic. Neck is supple without lymphadenopathy and trachea is midline. No JVD or carotid bruits. CARDIOVASCULAR: Regular rate and rhythm without murmurs, gallops, or rubs. RESPIRATORY: Chest wall is tender. The discomfort is reproduced with even light palpation. Clear to auscultation. Breath sounds equal bilaterally. No wheezes, rales, or rhonchi. No use of accessory muscles. GASTROINTESTINAL: Abdomen is nontender, nondistended. Abdomen soft. No obvious pulsatile mass or bruit. No CVA tenderness. Strong femoral pulses bilaterally. Normal bowel sounds in all quadrants. MUSCULOSKELETAL: Patient is moving upper and lower extremities freely. No calf tenderness or edema, no Homans sign. Strong pulses in upper and lower extremities. NEUROLOGICAL: Patient is alert and oriented to person and place. She is not aware of month date or year. Cranial nerves 2-12 are grossly intact. No focal deficits and speech is clear. SKIN: No rash and turgor is normal. Laboratory Laboratory Tests Test 06/02/16 06/02/16 06:44 06:45 White Blood Count 6.8 Red Blood Count 3.82 Hemoglobin 11.4 Hematocrit 32.8 Mean Corpuscular Volume 85.9 Mean Corpuscular Hemoglobin 30.0 Mean Corpuscular Hemoglobin 34.9 Concent Red Cell Distribution Width 13.6 Platelet Count 220 Mean Platelet Volume 8.3 Neutrophils (%) (Auto) 63.1 Lymphocytes (%) (Auto) 22.9 Monocytes (%) (Auto) 8.9 Eosinophils (%) (Auto) 4.6 Basophils (%) (Auto) 0.5 Neutrophils # (Auto) 4.3 Lymphocytes # (Auto) 1.6 Monocytes # (Auto) 0.6 Eosinophils # (Auto) 0.3 Basophils # (Auto) 0.0 CBC Comment DIFF FINAL Differential Comment Prothrombin Time 10.6 Prothromb Time International 1.0 Ratio Activated Partial 26.4 Thromboplast Time Sodium Level 143 Potassium Level 3.8 Chloride Level 110 Carbon Dioxide Level 21.8 Anion Gap 11 Blood Urea Nitrogen 15 Creatinine 1.04 Estimat Glomerular Filtration 51 Rate Random Glucose 99 Calcium Level 9.0 Magnesium Level 1.9 Total Bilirubin 0.3 Aspartate Amino Transf 12 (AST/SGOT) Alanine Aminotransferase 16 (ALT/SGPT) Alkaline Phosphatase 50 Total Creatine Kinase 44 Troponin I LESS THAN 0.02 Total Protein 6.6 Albumin 3.1 Lipase 326 Urine Color LIGHT-YELLOW Urine Turbidity CLEAR Urine pH 6.5 Urine Specific [place] 1.007 Urine Protein NEG Urine Glucose (UA) NEG Urine Ketones NEG Urine Occult Blood NEG Urine Nitrite NEG Urine Bilirubin NEG Urine Urobilinogen LESS THAN 2.0 Urine Leukocyte Esterase NEG Urine RBC 1 Urine WBC 1 Urine Squamous Epithelial 2 Cells Urine Bacteria RARE Urine Hyaline Casts 1 Microscopic Urinalysis Comment CULT NOT INDICATED Result Diagram: 06/02/1664306/02/16643 Imaging Last Impressions Chest X-Ray 06/02/16636 Signed Impressions: Service Date/Time: Thursday, June 02, 2016 06:56 - CONCLUSION: 1. Mildly tortuous aorta. No focal consolidation or effusion. Remote left rib fractures. Jed Hardin MD Course Initial EKG has sinus rhythm without significant ST segment depressions or elevations. Assessment and Plan Assessment and Plan * Chest pain: Patient will have serial cardiac enzymes and EKGs for ruling out purposes. Further treatment plan will be decided after Dr. Jarod John evaluates this patient in the chest pain center. * Hypertension: Continue current medication. Scott Hernandez Jun 02, 2016 10:17
[2016-06-02 11:00] LABS: CREATINE KINASE 57 U/L (26-192)
--- NOTE | 2016-06-02 13:23 | EKG ---
Date Performed: 06/02/2016 Time Performed: 10:10:22 PTAGE: 80 years EKG: Sinus rhythm MARKED LEFT AXIS DEVIATION INTRAVENTRICULAR CONDUCTION DELAY SEPTAL MYOCARDIAL INFARCTION ABNORMAL E CG PREVIOUS TRACING : 06/02/2016 06.15 Since previous tracing, no significant change noted DOCTOR: Jarod John Interpretating Date/Time 06/05/2016 06:52:04
[2016-06-02] MEDS ORDERED: DABIGATRAN ETEXILATE 150 MG CAP PO SCH (14:00)
[2016-06-02 14:21] LABS: CREATINE KINASE 48 U/L (26-192)
[2016-06-02] MEDS ORDERED: REGADENOSON INJ 0.4 MG/5 ML SYR ONE (15:00)
--- NOTE | 2016-06-02 16:26 | RADRPT ---
EXAM DATE/TIME: 06/02/2016 14:30 CORRECTION Corrected on: June 03, 2016; Added medication [facility] COMPARISON: No previous studies available for comparison. INDICATIONS : Retrosternal chest pain with dyspnea and nausea for 1 day. Angina. DOSE: 25.7 mCi Tc99m Myoview at stress. 8.1 mCi Tc99m Myoview at rest. 0.4 mg Lexiscan STRESS SYMPTOMS: Chest tightness and lightheaded. MEDICATIONS: 100 mg Aminophylline IV EJECTION FRACTION: 59% MEDICAL HISTORY : Myocardial infarction. Hypercholesterolemia. Diabetes mellitus type 2. GERD, Hypertension, COPD. Stro ke. SURGICAL HISTORY : Cholecystectomy. Hysterectomy. Coronary artery stent. ENCOUNTER: Initial ACUITY: 1 day PAIN SCALE: 8/10 LOCATION: Retrosternal chest TECHNIQUE: The patient underwent pharmacologic stress with infusion of prescribed dose. Continuous ECG tracing was monitored during stress. Gated SPECT imaging was performed after stress and conventional SPECT i maging was performed at rest. The examination was performed on a SPECT/CT scanner, both attenuation and non-corrected datasets were reviewed. FINDINGS: DISTRIBUTION: The maximum perfused segment at stress is in the anterior wall. PERFUSION STUDY: There is redistribution in the inferoseptal region towards the base. This involves the small segment myocardium.. GATED STUDY: There is intact wall motion and thickening without hypokinetic or dyskinetic segments. CONCLUSION: Stress-induced ischemia inferoseptal region.. RISK CATEGORY: Low (<1% Annual Mortality Rate) Solomon Mock MD FACR on June 02, 2016 at 16:22 Board Certified Radiologist. Board Certified Radiologist. This report was verified electronically.
--- NOTE | 2016-06-02 16:36 | HHI.DCPOC ---
Discharge Care Plan Diagnosis: (1) Chest pain (2) Hypertension (3) Paroxysmal atrial fibrillation Goals to Promote Your Health * To prevent worsening of your condition and complications * To maintain your health at the optimal level Directions to Meet Your Goals Take your medications as prescribed Follow your dietary instruction Follow activity as directed Keep your appointments as scheduled Take your immunizations and boosters as scheduled If your symptoms worsen call your PCP, if no PCP go to Urgent Care Center or Emergency Room Smoking is Dangerous to Your Health. Avoid second hand smoke Call the 24-hour hour crisis hotline for domestic abuse at Scott Hernandez Jun 02, 2016 16:36
--- NOTE | 2016-06-02 17:48 | EKG ---
Date Performed: 06/02/2016 Time Performed: 06:15:18 PTAGE: 80 years EKG: Sinus rhythm MARKED LEFT AXIS DEVIATION Left bundle branch block. Since previous tracing, no significant change n oted ABNORMAL ECG PREVIOUS TRACING : 03/08/2016 20.46 DOCTOR: Wiley Rodriguez Interpretating Date/Time 06/02/2016 17:48:12
[2016-06-02] MEDS ORDERED: METOPROLOL TARTRATE 50 MG TAB PO SCH (21:00)
[2016-06-02] MEDS ORDERED: [UNRECOGNIZED DRUG - OTHER] EACH EYE SCH (21:00)
[2016-06-02] MEDS ORDERED: SODIUM CHLORIDE 0.9% FLUSH 5 ML FLUSH IVF SCH (21:00)
[2016-06-03] MEDS ORDERED: SPIRONOLACTONE 25 MG TAB PO SCH (09:00)
[2016-06-03] MEDS ORDERED: SERTRALINE HCL 50 MG TAB PO SCH (09:00)
--- NOTE | 2016-06-03 14:31 | EKG ---
Date Performed: 06/02/2016 Time Performed: 13:36:54 PTAGE: 80 years EKG: SINUS BRADYCARDIA MARKED LEFT AXIS DEVIATION POSSIBLE LEFT VENTRICULAR HYPERTROPHY POSSIBLE SEPTAL MYOCARDIAL INFARCTION ABNORMAL ECG Since PREVIOUS TRACING , no significant change noted PREVIOUS TRACIN06/02/2016 10.10 DOCTOR: Reina Alvarado Interpretating Date/Time 06/03/2016 14:29:30
--- NOTE | 2016-06-03 14:39 | TR ---
Date Performed: 06/02/2016 Time Performed: 15:06:39 DOCTOR: Reina Alvarado DRUG LIST: CLINICAL HISTORY: CHEST PAIN REASON FOR TEST: REASON FOR ENDING: OBSERVATION: CONCLUSION: Lexiscan stress test was performed under standard four minute protocol. Radionuclid e was injected one minute prior to ending the test. No electrocardiographic abormalities were present to suggest ischemia. Nuclear imaging and interpretation are pending. COMMENTS:
== END 2016-06-02 18:46 | disposition home or self-care (01) ==
LOC: NEPC 06:05 → NEDA 09:49 → NEPGCP 16:28
PROVIDERS: ADMIT Internal Medicine Cardiovascular Disease; ATTEND Internal Medicine Cardiovascular Disease
DX: R07.9 Chest pain, unspecified (principal); I10 Essential (primary) hypertension; I48.0 Paroxysmal atrial fibrillation; F03.90 Unspecified dementia, unspecified severity, without behavioral disturbance, psychotic disturbance, mood disturbance, and anxiety; G51.0 Bell's palsy; E11.9 Type 2 diabetes mellitus without complications; J44.9 Chronic obstructive pulmonary disease, unspecified; E78.00 Pure hypercholesterolemia, unspecified; I25.2 Old myocardial infarction; K21.9 Gastro-esophageal reflux disease without esophagitis; F41.9 Anxiety disorder, unspecified; Z86.73 Personal history of transient ischemic attack (TIA), and cerebral infarction without residual deficits; I25.10 Atherosclerotic heart disease of native coronary artery without angina pectoris; Z96.653 Presence of artificial knee joint, bilateral; Z95.5 Presence of coronary angioplasty implant and graft; Z88.1 Allergy status to other antibiotic agents; Z91.041 Radiographic dye allergy status; Z88.5 Allergy status to narcotic agent; Z88.0 Allergy status to penicillin; Z88.2 Allergy status to sulfonamides; Z88.8 Allergy status to other drugs, medicaments and biological substances; Z91.09 Other allergy status, other than to drugs and biological substances
CPT/HCPCS: 71010; 78452; 80053; 81001; 82550; 83690; 83735; 84484; 85025; 85610; 85730; 93005; 93017; 99285; A9502; G0378; J2785

== ENCOUNTER 2016-06-07 14:01 | Observation (INO) | payer MEDICARE, BC ==
[~2016-06-07] VITALS: Ht 165.1 cm; Wt 70.0 kg
[2016-06-07] VITALS (7 sets, daily range): BP systolic 115–145; BP diastolic 59–62; PULSE 53–61; RESP 16–20; TEMP 97.7–98.3; O2SAT 98–99
[~2016-06-07 14:01] MED LIST changes: -B12-1CHW CHEW; -BENI20TA5 PO; -DONE10TA7 PO; -MEMA1TAB2 PO
--- NOTE | 2016-06-07 14:29 | PD ---
HPI Chief Complaint: Chest Pain Time Seen by Provider: 14:27 Travel History International Travel<30 days: No Contact w/Intl Traveler<30days: No Traveled to known affect area: No History of Present Illness HPI 80-year-old female presents the emergency department via EMS with complaints of central chest pain and pressure which started earlier today. Patient has increased shortness of breath and tachypnea associated with it. She has mild nausea and complains of central headache between her eyes rated at a 4 over 10, since arriving here in the emergency department. Patient was recently admitted here and seen in the chest pain center with sestamibi stress test performed showing stress-induced ischemia in the posterior septal region on June 02. Patient is taking Pradaxa for history of atrial fibrillation. She is also on amlodipine and metoprolol. Patient's EKG in the ambulance showed no ST changes according to line palletizer. Patient is allergic to codeine, Darvon, fluorescein dye, Keflex, penicillin, red ants, and sulfa. PFSH Past Medical History Hx Anticoagulant Therapy: Yes (pradaxa) Asthma: No Blood Disorders: No Anxiety: Yes Depression: No Heart Rhythm Problems: Yes Cancer: No Cardiovascular Problems: Yes (HTN) High Cholesterol: Yes Chemotherapy: No Chest Pain: No Congestive Heart Failure: No COPD: Yes Cerebrovascular Accident: Yes Coronary Artery Disease: Yes Dementia: Yes Diabetes: Yes Diminished Hearing: Yes Endocrine: Yes Gastrointestinal Disorders: Yes (BLOOD IN STOOL PER PATIENT REPORT) GERD: Yes Genitourinary: No Hypertension: Yes Immune Disorder: No Musculoskeletal: No Neurologic: Yes (CASAS'S PALSY, "black out spells", vertigo ) Psychiatric: Yes Reproductive: No Respiratory: Yes Immunizations Current: Yes Radiation Therapy: No Sleep Apnea: No Thyroid Disease: No : 2 Para: 2 Past Surgical History Appendectomy: Yes Cholecystectomy: Yes Coronary Stent: Yes Eye Surgery: Yes (RIGHT EYE LENS IMPLANT) Hysterectomy: Yes Joint Replacement: Yes (BILATERAL KNEE REPLACEMENT) Tonsillectomy: Yes Other Surgery: Yes Social History Alcohol Use: No Tobacco Use: No Substance Use: No Allergies-Medications (Allergen,Severity, Reaction): Coded Allergies: Codeine (Verified Allergy, Severe, ITCHING; PALPITATIONS, 06/02/16) Darvon (Verified Allergy, Severe, ITCHING; PALPITATIONS, 06/02/16) Keflex (Verified Allergy, Severe, ITCHING; PALPITATIONS, 06/02/16) Penicillin (Verified Allergy, Severe, ITCHING; PALPITATIONS, 06/02/16) Sulfa (Verified Allergy, Severe, ITCHING; PALPITATIONS, 06/02/16) Uncoded Allergies: FLUORESCEIN DYE (Allergy, Severe, DIZZINESS; PASSED OUT; PALPITATIONS, 04/30) RED ANTS (Allergy, Severe, RASH; DIFFICULTY BREATHING; ITCHING, 04/30/07) Reported Meds & Prescriptions Reported Meds & Active Scripts Active Reported Simbrinza Opth Drops (Brinzolamide-Brimonidine Opth Drops) 1-0.2% Susp 1 Drop EACH EYE BID Lotemax Opth Drops (Loteprednol Etabonate) 0.5 % Soln 1 Drop RIGHT EYE DAILY Pradaxa (Dabigatran) 150 Mg Cap 150 Mg PO DAILY Amlodipine (Amlodipine Besylate) 10 Mg Tab 10 Mg PO DAILY Metoprolol Tartrate 50 Mg Tab 50 Mg PO BID Spironolactone 25 Mg Tab 25 Mg PO DAILY Zoloft (Sertraline HCl) 25 Mg Tab 50 Mg PO DAILY Review of Systems Except as stated in HPI: all other systems reviewed are Neg General / Constitutional: No: Fever, Chills Eyes: No: Visual changes HENT: No: Headaches Cardiovascular: Positive: Chest Pain or Discomfort (see history present illness.) Respiratory: Positive: Shortness of Breath (see history present illness.) Gastrointestinal: Positive: Nausea, No: Vomiting, Diarrhea, Abdominal Pain Genitourinary: No: Dysuria Musculoskeletal: No: Pain Skin: No Rash Neurologic: No: Weakness Psychiatric: No: Depression Endocrine: No: Polydipsia Hematologic/Lymphatic: No: Easy Bruising Physical Exam Narrative GENERAL: Patient appears anxious and in mild distress. SKIN: Warm and dry. Normal color. Normal turgor. No diaphoresis. HEAD: Atraumatic. Normocephalic. EYES: Pupils equal and round. No scleral icterus. No injection or drainage. ENT: No nasal bleeding or discharge. Mucous membranes pink and moist. Pharynx is clear. Airway is patent. NECK: Trachea midline. No JVD. Neck is supple nontender. CARDIOVASCULAR: Bradycardic rate and rhythm. RESPIRATORY: No accessory muscle use. Clear to auscultation. Breath sounds equal bilaterally. GASTROINTESTINAL: Abdomen soft, non-tender, nondistended. Hepatic and splenic margins not palpable. MUSCULOSKELETAL: Extremities without clubbing, cyanosis, or edema. No obvious deformities. NEUROLOGICAL: Awake and alert. No obvious cranial nerve deficits. Motor grossly within normal limits. Five out of 5 muscle strength in the arms and legs. Normal speech. PSYCHIATRIC: Appropriate mood and affect; insight and judgment normal. Data Data Last Documented VS Vital Signs Date Time Temp Pulse Resp B/P Pulse Ox O2 Delivery O2 Flow Rate FiO2 06/07/16 15:03 98 Nasal Cannula 2 06/07/16 15:03 129/61 115/59 06/07/16 14:27 64 16 06/07/16 14:23 98.3 Orders Electrocardiogram (06/07/16 ) Ckmb (Isoenzyme) Profile (06/07/16 14:29) Complete Blood Count With Diff (06/07/16 14:29) Comprehensive Metabolic Panel (06/07/16 14:29) Magnesium (Mg) (06/07/16 14:29) Prothrombin Time / Inr (Pt) (06/07/16 14:29) Act Partial Throm Time (Ptt) (06/07/16 14:29) Troponin I (06/07/16 14:29) Chest, Single Ap (06/07/16 14:29) Ecg Monitoring (06/07/16 14:29) Bilateral Bp Monitoring (06/07/16 14:29) Iv Access Insert/Monitor (06/07/16 14:29) Oximetry (06/07/16 14:29) Oxygen Administration (06/07/16 14:29) Aspirin Chew (Aspirin Chew) (06/07/16 14:30) Sodium Chloride 0.9% Flush (Ns Flush) (06/07/16 14:30) Lorazepam (Ativan) (06/07/16 14:30) Nitroglycerin Sl (Nitrostat Sl) (06/07/16 14:45) Admit Order (Ed Use Only) (06/07/16 16:15) Labs Laboratory Tests Test 06/07/16 14:30 White Blood Count 7.2 TH/MM3 Red Blood Count 4.00 MIL/MM3 Hemoglobin 11.7 GM/DL Hematocrit 34.9 % Mean Corpuscular Volume 87.3 FL Mean Corpuscular Hemoglobin 29.2 PG Mean Corpuscular Hemoglobin 33.4 % Concent Red Cell Distribution Width 13.7 % Platelet Count 254 TH/MM3 Mean Platelet Volume 8.2 FL Neutrophils (%) (Auto) 67.3 % Lymphocytes (%) (Auto) 18.8 % Monocytes (%) (Auto) 9.5 % Eosinophils (%) (Auto) 3.6 % Basophils (%) (Auto) 0.8 % Neutrophils # (Auto) 4.8 TH/MM3 Lymphocytes # (Auto) 1.3 TH/MM3 Monocytes # (Auto) 0.7 TH/MM3 Eosinophils # (Auto) 0.3 TH/MM3 Basophils # (Auto) 0.1 TH/MM3 CBC Comment DIFF FINAL Differential Comment Prothrombin Time 12.2 SEC Prothromb Time International 1.1 RATIO Ratio Activated Partial 37.3 SEC Thromboplast Time Sodium Level 140 MEQ/L Potassium Level 5.2 MEQ/L Chloride Level 110 MEQ/L Carbon Dioxide Level 20.2 MEQ/L Anion Gap 10 MEQ/L Blood Urea Nitrogen 29 MG/DL Creatinine 1.33 MG/DL Estimat Glomerular Filtration 38 ML/MIN Rate Random Glucose 88 MG/DL Calcium Level 9.9 MG/DL Magnesium Level 2.1 MG/DL Total Bilirubin 0.7 MG/DL Aspartate Amino Transf 30 U/L (AST/SGOT) Alanine Aminotransferase 23 U/L (ALT/SGPT) Alkaline Phosphatase 56 U/L Total Creatine Kinase 82 U/L Troponin I LESS THAN 0.02 NG/ML Total Protein 7.5 GM/DL Albumin 3.8 GM/DL [facility] Medical Decision Making Medical Screen Exam Complete: Yes Emergency Medical Condition: Yes Differential Diagnosis Anxiety. Chest pain. Cardiac syndrome. Possible CA. Narrative Course Patient is medically stable at time of exam. At time of exam patient complained of no pain but as they were doing the EKG she complained of chest pain. Chest pain is rated as a 4/10. EKG shows sinus bradycardia with marked left axis deviation. This is reviewed with Dr. Albrecht. EKG is unchanged from previous. Patient is given 324 mg aspirin by mouth as well as 0.4 mg sublingual nitroglycerin. Patient is also given 0.5 mg lorazepam by mouth. IV access is obtained and labs ordered including CBC, CMP, cardiac panel. Chest x-ray is ordered. Chest x-ray is unremarkable per radiologist. CBC, and cardiac panel currently within normal limits. CMP shows potassium of 5.2. BUN is 29, creatinine 1.33. Dr. Albrecht recommends the patient be admitted to observation under Dr. Jordan for further evaluation and treatment. 1515 hrs. patient is evaluated and is resting comfortably. The patient agrees to admission. Diagnosis Primary Impression: Chest pain Qualified Code: R07.9 - Chest pain, unspecified type Admitting Information Admitting Physician Requests: Observation Condition: Stable Hiren Hernández Jun 07, 2016 14:29
[2016-06-07] MEDS ORDERED: SODIUM CHLORIDE 0.9% FLUSH 10 ML FLUSH IVF PRN (14:30)
[2016-06-07] MEDS ORDERED: ASPIRIN 81 MG CHEW TAB PO ONE (14:30)
[2016-06-07] MEDS ORDERED: LORazepam 0.5 MG TAB PO ONE ×2 (14:30→19:15)
[2016-06-07] MEDS ORDERED: NITROGLYCERIN 0.4 MG SL 25 TABS/BTL SL ONE (14:45)
[2016-06-07 14:54] LABS: AUTOMATED NEUTROPHIL # 4.8 TH/MM3 (1.8-7.7); BASOPHIL # 0.1 TH/MM3 (0-0.2); BASOPHIL % 0.8 % (0.0-2.0); EOSINOPHIL # 0.3 TH/MM3 (0-0.4); EOSINOPHIL % 3.6 % (0.0-4.0); HEMATOCRIT 34.9 % (35.0-46.0); HEMO FLAGS DIFF FINAL; LYMPH % 18.8 % (9.0-44.0); LYMPHOCYTE # 1.3 TH/MM3 (1.0-4.8); MEAN CELL VOLUME 87.3 FL (80.0-100.0); MEAN CORPUSCULAR HEMOGLOBIN 29.2 PG (27.0-34.0); MEAN CORPUSCULAR HGB CONC 33.4 % (32.0-36.0); MONO % 9.5 % (0.0-8.0); NEUT % 67.3 % (16.0-70.0); PLATELET COUNT 254 TH/MM3 (150-450); RED CELL DISTRIBUTION WIDTH 13.7 % (11.6-17.2); WHITE BLOOD COUNT 7.2 TH/MM3 (4.0-11.0)
[2016-06-07 15:02] LABS: APTT (PATIENT) 37.3 SEC (24.3-30.1); INTERNATIONAL NORMALIZED RATIO 1.1 RATIO; PROTHROMBIN TIME - PATIENT 12.2 SEC (9.8-11.6)
--- NOTE | 2016-06-07 15:05 | RADRPT ---
EXAM DATE/TIME: 06/07/2016 14:35 [facility] COMPARISON: CHEST SINGLE AP, June 02, 2016, 6:56. INDICATIONS : Shortness of breath and chest pain with feeling of chest pressure. MEDICAL HISTORY : Hypertension. Diabetes mellitus type II. Chronic obstructive pulmonary disease. SURGICAL HISTORY : Coronary artery stent. ENCOUNTER: Initial ACUITY: 1 day PAIN SCORE: 5/10 LOCATION: Bilateral chest FINDINGS: The lungs are under aerated. Minimal parenchymal changes are seen in the left base. Right lung is c lear. Heart and pulmonary vascularity are normal. Portion of bony skeleton visualized is unremarkab le. CONCLUSION: 1. Minimal parenchymal changes left base. 2. Cardiac event monitor noted. Solomon Mock MD FACR on June 07, 2016 at 14:54 Board Certified Radiologist. This report was verified electronically.
[2016-06-07 16:03] LABS: ALKALINE PHOSPHATASE 56 U/L (45-117); ALT (GPT) 23 U/L (10-53); ANION GAP 10 MEQ/L (5-15); AST (GOT) 30 U/L (15-37); BICARBONATE 20.2 MEQ/L (21.0-32.0); BLOOD UREA NITROGEN 29 MG/DL (7-18); CHLORIDE 110 MEQ/L (98-107); CREATINE KINASE 82 U/L (26-192); GLOMERULAR FILTRATION RATE 38 ML/MIN (>89); MAGNESIUM 2.1 MG/DL (1.5-2.5); POTASSIUM 5.2 MEQ/L (3.5-5.1); SODIUM (NA) 140 MEQ/L (136-145); TOTAL BILIRUBIN ADULT 0.7 MG/DL (0.2-1.0)
[2016-06-07] MEDS ORDERED: NALOXONE HCL 0.4 MG/ML AMP IV PRN (17:00)
[2016-06-07] MEDS ORDERED: SODIUM CHLORIDE 0.9% FLUSH 10 ML FLUSH IV FLUSH PRN (17:00)
[2016-06-07] MEDS ORDERED: ACETAMINOPHEN 325 MG TAB PO PRN (17:00)
[2016-06-07] MEDS ORDERED: ONDANSETRON HCL 4 MG/2 ML VIAL IVP PRN (17:00)
--- NOTE | 2016-06-07 17:02 | HHI.HP ---
[facility] Admission Diagnosis Chest Pain Diagnoses: Chief Complaint: chest pain (Taya Mak) Travel History International Travel<30 Days: No Contact w/Intl Traveler <30 Da: No Traveled to Known Affected Are: No (Taya Mak) History of Present Illness This is an 80-year-old female hypertension, dementia, hyperlipidemia, paroxysmal A. fib on Pradaxa. Patient states she's had stent in the past, although she doesn't recall when. During prior admissions, she has denied prior history of CAD. Patient presented to the emergency room with complaint of chest pain centrally located that started while she was resting. Describes the pain as aching, no radiation, was about 7-8. It was associated with mild shortness of breath, she did feel sweaty and had mild nausea. Indicates that the pain went away on its own patient did take an aspirin. Patient is not a very good historian, information is obtained from previous medical records and also from the patient. States she has memory problems and has difficulty recalling medical history from the past. Her information assurance specialist is Dr. Cedillo. Patient was actually seen at the chest pain center on June 02, 2016 and was evaluated by Dr. Alvarado did a stress test. Stress test results were read as stress-induced ischemia inferoseptal region. She was recommended to follow- up with Dr. Cedillo. Patient thinks that she did follow up although not sure what transpired during the visit. No other family at bedside to confirm. Patient states that she's been under a lot of stress, has been shaking. States that her son recently moved in with her and is causing some of these problems. Patient denies any domestic abuse, no emotional abuse. States that her son does try to help and takes her to appointments. Patient was evaluated in emergency room, troponin was negative. She was noted with potassium of 5.2 and also with elevated creatinine 1.33. Patient indicates she hasn't been drinking a lot of water. She is also on Aldactone. EKG shows sinus bradycardia with marked left axis deviation, unchanged from previous. Patient was given 324 mg aspirin by mouth as well as 0.4 mg sublingual nitroglycerin. Also given 0.5 mg lorazepam by mouth. At this time, patient is resting comfortably. She denies any chest discomfort, no shortness of breath. Patient is admitted for further evaluation and treatment. (Taya Mak) Review of Systems ROS Limitations: Poor Historian Respiratory: COMPLAINS OF: Shortness of breath Cardiovascular: COMPLAINS OF: Chest pain, Dyspnea on Exertion Psychiatric: COMPLAINS OF: Anxiety Other Shaky (Taya Mak) Past Family Social History Past Medical History Hypertension, dementia, paroxysmal A. fib with an episode of A. fib with RVR December 2015, Domingo's palsy. Denies known CAD, diabetes, and hyperlipidemia. recent admit to [facility] 05/23, had STT that was abnormal. Past Surgical History Bilateral knees, eyes, appendectomy, cholecystectomy, tonsillectomy, and hysterectomy. Reported Medications Reported Meds & Active Scripts Active Reported Simbrinza Opth Drops (Brinzolamide-Brimonidine Opth Drops) 1-0.2% Susp 1 Drop EACH EYE BID Lotemax Opth Drops (Loteprednol Etabonate) 0.5 % Soln 1 Drop RIGHT EYE DAILY Pradaxa (Dabigatran) 150 Mg Cap 150 Mg PO DAILY Amlodipine (Amlodipine Besylate) 10 Mg Tab 10 Mg PO DAILY Metoprolol Tartrate 50 Mg Tab 50 Mg PO BID Spironolactone 25 Mg Tab 25 Mg PO DAILY Zoloft (Sertraline HCl) 25 Mg Tab 50 Mg PO DAILY (Taya Mak) Allergies: Coded Allergies: Codeine (Verified Allergy, Severe, ITCHING; PALPITATIONS, 06/02/16) Darvon (Verified Allergy, Severe, ITCHING; PALPITATIONS, 06/02/16) Keflex (Verified Allergy, Severe, ITCHING; PALPITATIONS, 06/02/16) Penicillin (Verified Allergy, Severe, ITCHING; PALPITATIONS, 06/02/16) Sulfa (Verified Allergy, Severe, ITCHING; PALPITATIONS, 06/02/16) Uncoded Allergies: FLUORESCEIN DYE (Allergy, Severe, DIZZINESS; PASSED OUT; PALPITATIONS, 04/30) RED ANTS (Allergy, Severe, RASH; DIFFICULTY BREATHING; ITCHING, 04/30/07) Active Ordered Medications Inpatient Medications Aspirin (Aspirin Chew) 324 mg ONCE ONCE PO Last administered on 06/07/16t 14:40 ; Start 06/07/16 at 14:30; Stop 06/07/16 at 14:32; Status DC Lorazepam (Ativan) 0.5 mg ONCE ONCE PO Last administered on 06/07/16 14:40; Start 06/07/16 at 14:30; Stop 06/07/16 at 14:32; Status DC Nitroglycerin (Nitrostat Sl) 0.4 mg ONCE ONCE SL Last administered on 14:41; Start 06/07/16 at 14:45; Stop 06/07/16 at 14:46; Status DC Sodium Chloride (NS Flush) 2 ml UNSCH PRN IVF FLUSH AFTER USING IV ACCESS; Start 06/07/16 at 14:30 Family History She is not aware of family history of CAD. Social History Patient is a nonsmoker. She denies alcohol or illicit drugs. (Taya Mak) Physical Exam Vital Signs Vital Signs Date Time Temp Pulse Resp B/P Pulse Ox O2 Delivery O2 Flow Rate FiO2 06/07/16 15:03 98 Nasal Cannula 2 06/07/16 15:03 129/61 115/59 06/07/16 14:27 64 16 100 Room Air 06/07/16 14:23 98.3 60 16 129/61 99 Physical Exam GENERAL: This is a well-nourished, well-developed patient, mildly anxious. SKIN: No rashes, ecchymoses or lesions. Cool and dry. HEAD: Atraumatic. Normocephalic. No temporal or scalp tenderness. EYES: Right pupil cloudy, left pupil reactive. No scleral icterus. Mild erythema at the left conjunctiva. ENT: Nose without bleeding, purulent drainage or septal hematoma. Throat without erythema, tonsillar hypertrophy or exudate. Uvula midline. Airway patent. NECK: Trachea midline. No JVD or lymphadenopathy. Supple, nontender, no meningeal signs. CARDIOVASCULAR: Regular rate and rhythm without murmurs, gallops, or rubs. RESPIRATORY: Clear to auscultation. Breath sounds equal bilaterally. No wheezes , rales, or rhonchi. GASTROINTESTINAL: Abdomen soft, non-tender, nondistended. No hepato-splenomegaly , or palpable masses. No guarding. MUSCULOSKELETAL: Extremities without clubbing, cyanosis, or edema. No joint tenderness, effusion, or edema noted. No calf tenderness. Negative Homans sign bilaterally. NEUROLOGICAL: Awake, alert oriented 3. No focal deficits. Poor historian. Laboratory Laboratory Tests Test 06/07/16 14:30 White Blood Count 7.2 Red Blood Count 4.00 Hemoglobin 11.7 Hematocrit 34.9 Mean Corpuscular Volume 87.3 Mean Corpuscular Hemoglobin 29.2 Mean Corpuscular Hemoglobin 33.4 Concent Red Cell Distribution Width 13.7 Platelet Count 254 Mean Platelet Volume 8.2 Neutrophils (%) (Auto) 67.3 Lymphocytes (%) (Auto) 18.8 Monocytes (%) (Auto) 9.5 Eosinophils (%) (Auto) 3.6 Basophils (%) (Auto) 0.8 Neutrophils # (Auto) 4.8 Lymphocytes # (Auto) 1.3 Monocytes # (Auto) 0.7 Eosinophils # (Auto) 0.3 Basophils # (Auto) 0.1 CBC Comment DIFF FINAL Differential Comment Prothrombin Time 12.2 Prothromb Time International 1.1 Ratio Activated Partial 37.3 Thromboplast Time Sodium Level 140 Potassium Level 5.2 Chloride Level 110 Carbon Dioxide Level 20.2 Anion Gap 10 Blood Urea Nitrogen 29 Creatinine 1.33 Estimat Glomerular Filtration 38 Rate Random Glucose 88 Calcium Level 9.9 Magnesium Level 2.1 Total Bilirubin 0.7 Aspartate Amino Transf 30 (AST/SGOT) Alanine Aminotransferase 23 (ALT/SGPT) Alkaline Phosphatase 56 Total Creatine Kinase 82 Troponin I LESS THAN 0.02 Total Protein 7.5 Albumin 3.8 (Taya Mak) Result Diagram: 06/07/16 1430 06/07/16 1430 Assessment and Plan Problem List: (1) Chest pain (2) Paroxysmal atrial fibrillation (3) Hypertension (4) Acute renal injury (5) Hyperkalemia (6) Dementia (7) History of CVA (cerebrovascular accident) (8) Anxiety Assessment and Plan Admit to Dr. Joradn 80-year-old female presented to the emergency room with central chest pain associated with shortness of breath, nausea, diaphoresis. Was recently seen in the chest pain center and had a stress test that was abnormal. It is unclear if patient has had follow-up with cardiology. Chest pain, rule out acute coronary syndrome versus anxiety -Continue with serial cardiac enzymes Cardiology consultation Lipid profile in the morning Continue with aspirin 81 mg by mouth daily -Continuous cardiac telemetry -Continue with Lopressor 50 mg by mouth twice a day Acute renal injury with hyperkalemia, patient on Aldactone, possibly dehydrated We will hydrate cautiously, normal saline at 42/hr Avoid nephrotoxic agents BMP in the morning Hold Aldactone Hypertension, stable Continue with home medications Paroxysmal A. fib, stable Continue with Pradaxa 150 mg by mouth twice a day Continuous cardiac telemetry Continue with beta graeme Dementia, stable Continue to monitor Anxiety -Ativan 0.5 mg po TID PRN anxiety Home medications reviewed, initiated as indicated Continue with Pradaxa for DVT prophylaxis Plan of care has been discussed with the patient, attending and registered nurse. Further management of the patient will be dependent on the hospital course This patient was seen by myself and Dr. Jordan, this H&P is written on his behalf (Taya Mak) Assessment and Plan evaluation was done yesterday in detail as above. this is late note bc of computor issues chart was reviewed agree with above plan of care (Rama Jordan MD) Problem Qualifiers (1) Chest pain: Qualified Code: R07.9 - Chest pain, unspecified type (2) Hypertension: Qualified Code: I10 - Essential hypertension (3) Dementia: Taya Mak Jun 07, 2016 17:02 Rama Jordan MD Jun 08, 2016 11:07
[2016-06-07] MEDS: SODIUM CHLOR 0.9% 1000 ML INJ 1,000 ML IV SCH (18:46)
[2016-06-07] MEDS ORDERED: BRINZOLAMIDE BRIMONIDINE OPTH EACH EYE SCH (21:00)
[2016-06-07] MEDS: METOPROLOL TARTRATE 50 MG TAB PO SCH (21:00)
[2016-06-07] MEDS: SODIUM CHLORIDE 0.9% FLUSH 10 ML FLUSH IV FLUSH SCH (21:00)
[2016-06-07 21:16] LABS: CREATINE KINASE 44 U/L (26-192)
--- NOTE | 2016-06-07 23:58 | EKG ---
Date Performed: 06/07/2016 Time Performed: 14:28:57 PTAGE: 80 years EKG: SINUS BRADYCARDIA MARKED LEFT AXIS DEVIATION LEFT BUNDLE BRANCH BLOCK ABNORMAL ECG PREVIOUS TRACING : 06/02/2016 13.36 DOCTOR: Debra Andrew Interpretating Date/Time 06/07/2016 23:57:13
[2016-06-08] VITALS (9 sets, daily range): BP systolic 106–128; BP diastolic 51–72; PULSE 50–62; RESP 18–20; TEMP 97.6–98.7; O2SAT 97–98
[2016-06-08 04:24] LABS: ANION GAP 6 MEQ/L (5-15); BICARBONATE 24.7 MEQ/L (21.0-32.0); BLOOD UREA NITROGEN 26 MG/DL (7-18); CHLORIDE 110 MEQ/L (98-107); GLOMERULAR FILTRATION RATE 45 ML/MIN (>89); POTASSIUM 4.3 MEQ/L (3.5-5.1); SODIUM (NA) 141 MEQ/L (136-145)
[2016-06-08 04:28] LABS: HDL CHOLESTEROL 55.9 MG/DL (40.0-60.0); LDL CHOLESTEROL 85 MG/DL (0-99)
[2016-06-08 04:39] LABS: CREATINE KINASE 44 U/L (26-192)
--- NOTE | 2016-06-08 07:26 | HHI.PR ---
Subjective Remarks no cp no sob felt palpitations but thinks its more anxiety slept okay no other complaints Objective Objective Results - Vital Signs Date Time Temp Pulse Resp B/P Pulse Ox O2 Delivery O2 Flow Rate FiO2 06/08/16 07:07 97.7 62 20 128/60 98 06/08/16 03:31 97.6 50 20 109/56 98 06/08/16 00:12 97.8 52 20 111/52 97 06/07/16 20:00 54 06/07/16 19:16 98.2 53 20 131/61 98 06/07/16 18:08 61 06/07/16 17:52 97.7 59 20 136/62 99 06/07/16 17:31 58 16 145/60 98 Nasal Cannula 2 06/07/16 15:03 98 Nasal Cannula 2 06/07/16 15:03 129/61 115/59 06/07/16 14:27 64 16 100 Room Air 06/07/16 14:23 98.3 60 16 129/61 99 Result Diagram: 06/07/16 1430 06/08/16 0310 Other Results Laboratory Tests Test 06/07/16 06/07/16 06/08/16 14:30 20:33 03:10 White Blood Count 7.2 Red Blood Count 4.00 Hemoglobin 11.7 Hematocrit 34.9 Mean Corpuscular Volume 87.3 Mean Corpuscular Hemoglobin 29.2 Mean Corpuscular Hemoglobin 33.4 Concent Red Cell Distribution Width 13.7 Platelet Count 254 Mean Platelet Volume 8.2 Neutrophils (%) (Auto) 67.3 Lymphocytes (%) (Auto) 18.8 Monocytes (%) (Auto) 9.5 Eosinophils (%) (Auto) 3.6 Basophils (%) (Auto) 0.8 Neutrophils # (Auto) 4.8 Lymphocytes # (Auto) 1.3 Monocytes # (Auto) 0.7 Eosinophils # (Auto) 0.3 Basophils # (Auto) 0.1 CBC Comment DIFF FINAL Differential Comment Prothrombin Time 12.2 Prothromb Time International 1.1 Ratio Activated Partial 37.3 Thromboplast Time Sodium Level 140 141 Potassium Level 5.2 4.3 Chloride Level 110 110 Carbon Dioxide Level 20.2 24.7 Anion Gap 10 6 Blood Urea Nitrogen 29 26 Creatinine 1.33 1.16 Estimat Glomerular Filtration 38 45 Rate Random Glucose 88 92 Calcium Level 9.9 9.2 Magnesium Level 2.1 Total Bilirubin 0.7 Aspartate Amino Transf 30 (AST/SGOT) Alanine Aminotransferase 23 (ALT/SGPT) Alkaline Phosphatase 56 Total Creatine Kinase 82 44 44 Troponin I LESS THAN 0.02 LESS THAN 0.02 LESS THAN 0.02 Total Protein 7.5 Albumin 3.8 Triglycerides Level 89 Cholesterol Level 159 LDL Cholesterol 85 HDL Cholesterol 55.9 Cholesterol/HDL Ratio 2.84 ROS General: No: Fatigue, Weakness HEENT: No: Sore Throat, Dysphagia Cardiac: No: Chest Pain, Edema, Palpitations Pulmonary: No: Cough, SOB, Wheezing GI: No: Abdominal Pain, BM, Diarrhea, N/V /CATTLE TESTER: No: Dysuria, Urgency Neuro/MS: No: Lightheaded, Confusion Psych: Anxiety, No: Depression, Other Skin: No: Itching, Rash Physical Exam Physical Exam GENERAL: This is a well-nourished, well-developed patient. SKIN: No rashes, ecchymoses or lesions. Cool and dry. HEAD: Atraumatic. Normocephalic. No temporal or scalp tenderness. EYES: Right pupil cloudy, left pupil reactive. No scleral icterus. Mild erythema at the left conjunctiva. ENT: Nose without bleeding, purulent drainage or septal hematoma. Throat without erythema, tonsillar hypertrophy or exudate. Uvula midline. Airway patent. NECK: Trachea midline. No JVD or lymphadenopathy. Supple, nontender, no meningeal signs. CARDIOVASCULAR: Regular rate and rhythm without murmurs, gallops, or rubs. RESPIRATORY: Clear to auscultation. Breath sounds equal bilaterally. No wheezes , rales, or rhonchi. GASTROINTESTINAL: Abdomen soft, non-tender, nondistended. No hepato-splenomegaly , or palpable masses. No guarding. MUSCULOSKELETAL: Extremities without clubbing, cyanosis, or edema. No joint tenderness, effusion, or edema noted. No calf tenderness. Negative Homans sign bilaterally. NEUROLOGICAL: Awake, alert oriented 3. No focal deficits. Poor historian. Urinary Catheter: No Vascular Central Line Catheter: No A/P Diagnosis: (1) Chest pain (2) Paroxysmal atrial fibrillation (3) Hypertension (4) Acute renal injury (5) Hyperkalemia (6) Dementia (7) History of CVA (cerebrovascular accident) (8) Anxiety Assessment and Plan 80-year-old female presented to the emergency room with central chest pain associated with shortness of breath, nausea, diaphoresis. Was recently seen in the chest pain center and had a stress test that was abnormal. It is unclear if patient has had follow-up with cardiology. Chest pain, rule out acute coronary syndrome versus anxiety -Serial cardiac enzymes negative Cardiology consultation, pending Lipid profile in the morning Continue with aspirin 81 mg by mouth daily -Continuous cardiac telemetry -Continue with Lopressor 50 mg by mouth twice a day Acute renal injury with hyperkalemia, patient on Aldactone, possibly dehydrated. Resolving Continue with normal saline at 42/hr Avoid nephrotoxic agents Hold Aldactone Hypertension, stable Continue with home medications Paroxysmal A. fib, stable Continue with Pradaxa 150 mg by mouth twice a day Continuous cardiac telemetry Continue with beta graeme Dementia, stable Continue to monitor Anxiety -Ativan 0.5 mg po TID PRN anxiety Continue with Pradaxa for DVT prophylaxis will f/u after cardiology, poss. dc today if no interventions plan D/W RN D/W Dr. Jordan D/W pt. This patient was seen by myself and Dr. Jordan, this note is written on his behalf Problem Qualifiers (1) Chest pain: Qualified Code: R07.9 - Chest pain, unspecified type (2) Hypertension: Qualified Code: I10 - Essential hypertension (3) Dementia: Taya Mak Jun 08, 2016 07:26
[2016-06-08] MEDS ORDERED: LOTEPREDNOL OPTH RIGHT EYE SCH (09:00)
[2016-06-08] MEDS ORDERED: DABIGATRAN ETEXILATE 150 MG CAP PO SCH (09:00)
[2016-06-08] MEDS: ASPIRIN EC 81 MG TABEC PO SCH (09:33)
[2016-06-08] MEDS: SODIUM CHLORIDE 0.9% FLUSH 10 ML FLUSH IV FLUSH SCH ×2 (09:33→19:40)
[2016-06-08] MEDS: SERTRALINE HCL 50 MG TAB PO SCH (09:33)
[2016-06-08] MEDS: METOPROLOL TARTRATE 50 MG TAB PO SCH ×2 (09:33→19:25)
--- NOTE | 2016-06-08 10:24 | MB ---
cc: ANTOINE CURRIE M.D. DATE OF CONSULTATION: REASON FOR CONSULTATION Chest pain. HISTORY OF PRESENT ILLNESS This is an 80-year-old white female, poor historian with dementia who was admitted apparently yesterday for substernal chest pressure. She called the ambulance. She was admitted for observation, enzymes were negative. EKG showed left bundle branch block, no acute changes. Her cardiac history according to her dates back to many years ago. She had a myocardial infarction and stent put in, not in this town. She was admitted to the chest pain unit several days ago and had a nuclear stress test which showed according to the report stress induced, inferoseptal reversible defect of small degree. She was discharged to home and to be followed by Dr. Cedillo. She could not remember whether she has seen Dr. Cedillo or not. She still has paroxysmal atrial fibrillation. At the moment she is comfortable. She is known to have hypertension, hyperlipidemia and renal insufficiency. In the emergency room and she was given sublingual nitroglycerin and aspirin. REVIEW OF SYSTEMS Ten-point review has been stated in the chart. PAST MEDICAL HISTORY 1. Hypertension. 2. Dementia. 3. Hyperlipidemia. 4. Paroxysmal atrial fibrillation December 2015. 5. Whiting palsy. 6. Appendectomy. 7. Cholecystectomy. 8. Tonsillectomy. 9. Hysterectomy. 10. Bilateral knee surgery. MEDICATIONS AT HOME 1. Eyedrops. 2. Pradaxa 150 mg daily. 3. Norvasc 10 mg daily. 4. Metoprolol 50 mg twice a day. 5. Spirolactone 25 mg daily. 6. Zoloft 50 mg daily. ALLERGIES CODEINE, DIOVAN, KEFLEX, PENICILLIN AND SULFA. FAMILY HISTORY Unobtainable. SOCIAL HISTORY The patient is a . She lives with her son. She is a nonsmoker, nondrinker. PHYSICAL EXAMINATION VITAL SIGNS: On day of consultation showed blood pressure 128/60, pulse 62 per minute, afebrile. HEAD/NECK: Exam showed normal oral exam. Neck is supple. CHEST: Exam was clear. CARDIOVASCULAR: Showed normal neck vein, S1-S2 normal. No S3, S4, no murmur. ABDOMEN: The liver and spleen are palpable. Positive bowel sounds. Nontender abdomen. SENIOR CARE PROVIDER: Exam showed normal cranial nerves, 3, 4, 5, 7, 9, 10, 11 and 12. The patient has very poor recent memory. She is moving all four limbs. ASSESSMENT 1. Frequent recurrent chest pain with small abnormal reversible inferoseptal defect a week ago from nuclear stress test. 2. Hypertension and hyperlipidemia. 3. Dementia. 4. Questionable history of myocardial infarct in the distant past with a stent, according to her. 5. Left bundle branch block, probably chronic and it has been there since 2007. PLAN I tried a couple of times to get a hold of the son to get more history, and I have been unable to. At this stage with senile dementia we cannot get permission to do cardiac catheterization without the son's signature. We will try it again and in the meantime the patient will be treated medically. MD JACQUELIN Salinas/SUYAPA /9:13 AM /10:03 AM ADY
--- NOTE | 2016-06-08 17:36 | HHI.FF ---
Face to Face Verification Diagnosis: (1) Chest pain (2) Acute renal injury (3) Dementia Physical Therapy Order: Evaluate and Treat Home Health Nursing Order: Medical education Nursing assessment with vital signs [employer] T[employer] Order: To Evaluate: Support services (please eval patient's home situation, verbalized some anxiety over son moving in with her. ) Order: To Provide: Community services I have seen patient Jessica Miller on 06/08/16. My clinical findings support the need for the requested home health care services because: Patient has SOB Deconditioned w/ increased weakness Limited ability to care for self Need for psychosocial assistance Impaired cognition/judgement I certify that my clinical findings support that this patient is homebound because: Impaired cognitive ability/safety Unsafe to leave home unassisted Need for psychosocial assistance Taya Mak. [facility] Jun 08, 2016 17:36
[2016-06-08] MEDS: SODIUM CHLOR 0.9% 1000 ML INJ 1,000 ML IV SCH (18:19)
--- NOTE | 2016-06-08 20:57 | EKG ---
Date Performed: 06/08/2016 Time Performed: 02:39:41 PTAGE: 80 years EKG: Sinus rhythm MARKED LEFT AXIS DEVIATION INTRAVENTRICULAR CONDUCTION DELAY POSSIBLE LEFT VENTRICULAR HYPERTROPHY P OSSIBLE ANTERIOR MYOCARDIAL INFARCTION ABNORMAL ECG PREVIOUS TRACING : 06/07/2016 20.33 DOCTOR: Debra Andrew Interpretating Date/Time 06/08/2016 20:57:32
--- NOTE | 2016-06-08 21:06 | EKG ---
Date Performed: 06/07/2016 Time Performed: 20:33:51 PTAGE: 80 years EKG: SINUS BRADYCARDIA MARKED LEFT AXIS DEVIATION LEFT BUNDLE BRANCH BLOCK ABNORMAL ECG PREVIOUS TRACING : 06/07/2016 14.28 DOCTOR: Debra Andrew Interpretating Date/Time 06/08/2016 21:05:37
[2016-06-09] VITALS (10 sets, daily range): BP systolic 114–143; BP diastolic 56–63; PULSE 54–67; RESP 16–21; TEMP 95.5–98.8; O2SAT 95–100
[2016-06-09] MEDS: SODIUM CHLORIDE 0.9% FLUSH 10 ML FLUSH IV FLUSH SCH ×2 (09:00→20:14)
[2016-06-09] MEDS: METOPROLOL TARTRATE 50 MG TAB PO SCH ×2 (09:12→20:14)
[2016-06-09] MEDS: ASPIRIN EC 81 MG TABEC PO SCH (09:13)
[2016-06-09] MEDS: SERTRALINE HCL 50 MG TAB PO SCH (09:13)
--- NOTE | 2016-06-09 10:08 | HHI.PR ---
Objective Objective Results - Vital Signs Date Time Temp Pulse Resp B/P Pulse Ox O2 Delivery O2 Flow Rate FiO2 06/09/16 07:22 96.3 61 16 128/58 98 06/09/16 05:39 98.8 55 18 143/63 100 06/09/16 01:08 98.4 54 21 114/56 98 06/09/16 00:18 67 06/08/16 20:34 98.4 55 18 106/51 98 06/08/16 19:01 61 06/08/16 18:14 120/72 06/08/16 15:02 98.7 60 18 111/61 06/08/16 11:05 97.7 60 18 110/60 98 I/O 06/08/16 06/08/16 06/08/16 06/09/16 06/09/16 06/09/16 07:00 15:00 23:00 07:00 15:00 23:00 Intake Total 950 ml Output Total 1000 ml Balance -50 ml Intake Oral 500 ml IV Total 450 ml Output Urine Total 1000 ml # Voids 3 1 3 (Mari Panda) Result Diagram: 06/07/16 1430 06/08/16 0310 Other Results Last Impressions Chest X-Ray 06/07/16 1429 Signed Impressions: Service Date/Time: Tuesday, June 07, 2016 14:35 - CONCLUSION: 1. Minimal parenchymal changes left base. 2. Cardiac event monitor noted. Solomon Mock MD FACR (Mari Panda) Physical Exam Physical Exam GENERAL: This is a well-nourished, well-developed patient. SKIN: No rashes, ecchymoses or lesions. Cool and dry. HEAD: Atraumatic. Normocephalic. No temporal or scalp tenderness. EYES: Right pupil cloudy, blind, left pupil reactive. ENT: Nose without bleeding, purulent drainage or septal hematoma. Throat without erythema, tonsillar hypertrophy or exudate. Uvula midline. Airway patent. NECK: Trachea midline. No JVD or lymphadenopathy. Supple, nontender, CARDIOVASCULAR: Regular rate and rhythm without murmurs, gallops, or rubs. RESPIRATORY: Clear to auscultation. Breath sounds equal bilaterally. No wheezes , rales, or rhonchi. GASTROINTESTINAL: Abdomen soft, non-tender, nondistended. No hepato-splenomegaly , or palpable masses. No guarding. MUSCULOSKELETAL: Extremities without clubbing, cyanosis, or edema. No joint tenderness, effusion, or edema noted. No calf tenderness. Negative Homans sign bilaterally. NEUROLOGICAL: Awake, alert oriented 3. No focal deficits. Poor historian. Objective Remarks I had no chest pain last night (Mari Panda) A/P Assessment and Plan A/P (1) Chest pain (2) Paroxysmal atrial fibrillation (3) Hypertension (4) Acute renal injury (5) Hyperkalemia (6) Dementia (7) History of CVA (cerebrovascular accident) (8) Anxiety Chest pain, ID ruled out, enzymes are negative -Serial cardiac enzymes negative aspirin 81 , Lopressor -Continuous cardiac telemetry Patient has POA, will follow up with any further testing and with cardiology involvement. Acute renal injury Gentle hydration, labs this morning show potassium normalized at 4.3 Monitor Hypertension, stable, medical management Paroxysmal A. fib, stable, she on Pradaxa Continuous cardiac telemetry, rhythm is controlled with beta graeme Dementia, stable Patient has POA that will assist with her plan of care Depending on POA, and discussion with any further testing for chest pain, if no intervention patient will discharge today or soon Discussed With: Nurse (RN), Family (patient), Other (Dr. greenberg, seen on her behalf) (Mari Panda) Assessment and Plan patient denies chest pain discussed with DR Jimenez patient has a POA, DR jimenez to discuss with POA regarding intervention vs medical management discussed with patient discussed with Mari LEE (Ann-Marie Greenberg MD) Mari Panda Jun 09, 2016 10:08 Ann-Marie Greenberg MD Jun 09, 2016 10:45
[2016-06-09] MEDS: SODIUM CHLOR 0.9% 1000 ML INJ 1,000 ML IV SCH ×2 (13:24→20:14)
--- NOTE | 2016-06-09 13:42 | PD.CARD.PN ---
Subjective Subjective Remarks Frequent recurrence of CP, pain free today. Abnormal nuclear stress test last week. Hx of OK and stent in the past Objective Vital Signs / I&O Vital Signs Date Time Temp Pulse Resp B/P Pulse Ox O2 Delivery O2 Flow Rate FiO2 06/09/16 11:07 95.9 60 16 122/56 95 06/09/16 07:22 96.3 61 16 128/58 98 06/09/16 05:39 98.8 55 18 143/63 100 06/09/16 01:08 98.4 54 21 114/56 98 06/09/16 00:18 67 06/08/16 20:34 98.4 55 18 106/51 98 06/08/16 19:01 61 06/08/16 18:14 120/72 06/08/16 15:02 98.7 60 18 111/61 I/O 06/08/16 06/08/16 06/08/16 06/09/16 06/09/16 06/09/16 07:00 15:00 23:00 07:00 15:00 23:00 Intake Total 950 ml Output Total 1000 ml Balance -50 ml Intake Oral 500 ml IV Total 450 ml Output Urine Total 1000 ml # Voids 3 1 3 Physical Exam GENERAL: SKIN: Warm and dry. HEAD: Normocephalic. EYES: No scleral icterus. No injection or drainage. NECK: Supple, trachea midline. No JVD or lymphadenopathy. CARDIOVASCULAR: Regular rate and rhythm without murmurs, gallops, or rubs. RESPIRATORY: Breath sounds equal bilaterally. No accessory muscle use. GASTROINTESTINAL: Abdomen soft, non-tender, nondistended. MUSCULOSKELETAL: No cyanosis, or edema. BACK: Nontender without obvious deformity. No CVA tenderness. Assessment and Plan Problem List: (1) Dementia (2) Paroxysmal atrial fibrillation (3) Chest pain due to myocardial ischemia (4) Old myocardial infarct Assessment and Plan: will proceed with cath tomorrow due to frequent recurrence of chest pain, history of OK treated with stent in the past and abnormal nuclear stress test last week. Consent obtained from Beatrice GALLAGHER Problem Qualifiers (1) Dementia: Tristan Reinoso MD Jun 09, 2016 13:42
[2016-06-10 06:06] VITALS: BP 128/78; PULSE 86; RESP 18; O2SAT 97
[2016-06-10 07:20] VITALS: BP 139/67; PULSE 60; RESP 16; TEMP 97.5; O2SAT 97
[2016-06-10 07:55] VITALS: PULSE 55
--- NOTE | 2016-06-10 08:22 | HHI.PR ---
Subjective Remarks Resting in bed No chest pain, and last 24 hours No shortness of breath Awake, answers questions appropriately Vital signs stable patient is afebrile Nothing by mouth for cardiac procedure, heart catheter (Mari Panda) Objective Objective Results - Vital Signs Date Time Temp Pulse Resp B/P Pulse Ox O2 Delivery O2 Flow Rate FiO2 06/10/16 07:55 55 06/10/16 07:20 97.5 60 16 139/67 97 06/10/16 06:06 86 18 128/78 97 06/09/16 19:44 97.9 58 18 127/60 97 06/09/16 19:11 60 06/09/16 15:16 95.5 59 16 121/58 95 06/09/16 12:45 54 06/09/16 11:07 95.9 60 16 122/56 95 06/09/16 09:00 58 I/O 06/09/16 06/09/16 06/09/16 06/10/16 06/10/16 06/10/16 07:00 15:00 23:00 07:00 15:00 23:00 Intake Total 750 ml Balance 750 ml IV Total 750 ml # Voids 3 7 # Bowel Movements 0 (Mari Panda) Result Diagram: 06/07/16 1430 06/08/16 0310 ROS General: Weakness (generalized), Other (10 point ROS done. Positives include chest pain, generalized weakness, other systems negative or unremarkable unless mentioned) HEENT: Other (blind right eye) Cardiac: Chest Pain (none in last 24 hours) (Mari Panda) Physical Exam Physical Exam PHYSICAL EXAMINATION GENERAL: This is an obese well-developed, female who appears to be in no acute distress resting in the bed. She is alert and awake, affect appropriate HEAD: Normocephalic without any lesion or mass noted. Facial features appear symmetric. OROPHARYNGEAL: Oropharynx without erythema or edema. NECK: Supple. No nuchal rigidity or lymphadenopathy. Trachea midline without deviation. CARDIAC: Regular rhythm, regular rate, S1 and S2 are heard. Murmur none; no gallops or rubs. LUNGS: Clear to auscultation bilaterally. No wheeze, no rhonchi No use of accessory muscles on inspiration or expiration. ABDOMEN: Soft, nontender, no organomegaly or masses. Bowel sounds are heard in all four quadrants. No rebound. No guarding. EXTREMITIES: No edema. Pulses equal bilateral. NEUROLOGICAL: Patient mood and affect appropriate. SKIN:Warm and moist Objective Remarks I'm hungry (Mari Panda) A/P Assessment and Plan A/P (1) Chest pain (2) Paroxysmal atrial fibrillation (3) Hypertension (4) Acute renal injury (5) Hyperkalemia (6) Dementia (7) History of CVA (cerebrovascular accident) (8) Anxiety Chest pain, NC ruled out, enzymes are negative Appreciate cardiology consult, patient is going for cardiac catheter this morning at 08 30 aspirin 81 , Lopressor telemetry Patient has POA, will follow up as needed Currently patient is awake, alert, and understands situation in process Acute renal injury Gentle hydration, will recheck BMP Monitor Hypertension, stable, medical management Paroxysmal A. fib, stable, she on Pradaxa beta graeme Dementia, stable Patient has POA that will assist with her plan of care Discharge planning will depend on course of action for treatment, after her cardiac catheter, will review options If negative patient should be able to discharge. Discussed with patient Discussed with nurse Discussed with Dr. greenberg, seen on her behalf Discussed With: Nurse (RN), Family (patient), Other (Dr. greenberg, seen on her behalf) (Mari Panda) Assessment and Plan This is late entry patient was seen and examined in ER on 06/09 awaiting further cardiac recommendations discussed with patient discussed with Mari LEE (Ann-Marie Greenberg MD) Mari Panda Jun 10, 2016 08:22 Ann-Marie Greenberg MD Jun 10, 2016 11:10
[2016-06-10] MEDS ORDERED: HEPARIN-NS/PF INJ 500 ML ONE ×2 (08:39→09:09)
[2016-06-10] MEDS ORDERED: HEPARIN SODIUM - IV 10,000 UNITS/10 ML VIAL ONE (08:44)
[2016-06-10] MEDS ORDERED: ENOXAPARIN SODIUM 100 MG/ML SYRINGE ONE (08:44)
[2016-06-10] MEDS ORDERED: NITROGLYCERIN INJ 5 ML ONE (08:44)
[2016-06-10] MEDS ORDERED: VERAPAMIL HCL 5 MG/2 ML VIAL ONE (08:44)
[2016-06-10] MEDS ORDERED: MIDAZOLAM HCL 2 MG/2 ML VIAL ONE (08:44)
[2016-06-10] MEDS ORDERED: SODIUM CHLOR 0.9% 1000 ML INJ 1,000 ML IV SCH (09:34)
--- NOTE | 2016-06-10 09:47 | PD.CARD.PN ---
Subjective Subjective Remarks CP, cath showed normal RCA and small diffusely LCX disease. LAD had mild instent restenosis. Normal EF and wall motion Objective Vital Signs / I&O Vital Signs Date Time Temp Pulse Resp B/P Pulse Ox O2 Delivery O2 Flow Rate FiO2 06/10/16 07:55 55 06/10/16 07:20 97.5 60 16 139/67 97 06/10/16 06:06 86 18 128/78 97 06/09/16 19:44 97.9 58 18 127/60 97 06/09/16 19:11 60 06/09/16 15:16 95.5 59 16 121/58 95 06/09/16 12:45 54 06/09/16 11:07 95.9 60 16 122/56 95 I/O 06/09/16 06/09/16 06/09/16 06/10/16 06/10/16 06/10/16 07:00 15:00 23:00 07:00 15:00 23:00 Intake Total 750 ml Balance 750 ml IV Total 750 ml # Voids 3 7 # Bowel Movements 0 Physical Exam GENERAL: SKIN: Warm and dry. HEAD: Normocephalic. EYES: No scleral icterus. No injection or drainage. NECK: Supple, trachea midline. No JVD or lymphadenopathy. CARDIOVASCULAR: Regular rate and rhythm without murmurs, gallops, or rubs. RESPIRATORY: Breath sounds equal bilaterally. No accessory muscle use. GASTROINTESTINAL: Abdomen soft, non-tender, nondistended. MUSCULOSKELETAL: No cyanosis, or edema. BACK: Nontender without obvious deformity. No CVA tenderness. Assessment and Plan Problem List: (1) Dementia (2) Paroxysmal atrial fibrillation (3) Chest pain due to myocardial ischemia (4) Old myocardial infarct Assessment and Plan: cath done and no need for PCI medical RX, can be discharged after lunch Problem Qualifiers (1) Dementia: Tristan Reinoso MD Jun 10, 2016 09:47
[2016-06-10] MEDS ORDERED: MISC INFORMATION XX ONE (10:00)
--- NOTE | 2016-06-10 10:16 | MA ---
cc: ANTOINE CURRIE M.D. DATE 06/10/2016 PROCEDURE Left heart catheterization, left ventriculogram and coronary arteriography PROCEDURE IN DETAIL The above-mentioned procedure was performed using the right radial approach. At the end of procedure, all catheters and sheaths were removed and bleeding was stopped with TR banding. HEMODYNAMIC RESULTS Heart rate 70 beats per minute. Left ventricular end-diastolic pressure was 5, systemic aortic pressure was 107/46 with a mean of 69. There was no gradient seen across the aortic valve. Ejection fraction was 55%. COMMENT Ejection fraction left ventricular end-diastolic pressure was normal. LEFT VENTRICULOGRAPHY Left ventriculography was performed in the right anterior oblique projection. Left ventricle was normal in size. There was no wall motion abnormality seen. CORONARY ARTERIOGRAPHY Selective left and right coronary arteriography was performed in the left, right and sagittal oblique projections. The Left main was normal. The left anterior descending had a proximal left anterior descending stent with mild in-stent restenosis proximally of approximately 30%. The mid and distal left anterior descending were normal in caliber, mildly irregular and free of significant disease. The diagonal branches were normal in caliber, mildly irregular and free of significant disease. The left circumflex was a small vessel. It was narrowed 70% proximally over a short segment. It supplied two small marginal branches. They were moderately irregular. Before the bifurcations of the mid left circumflex, there was a 70% stenosis over a short segment. The right coronary artery was a large caliber vessel, mildly irregular and free of significant disease. The coronary circulation was right-dominant. CONCLUSION 1. Preserved left ventricular systolic wall motion. 2. Mild in-stent restenosis of the proximal left anterior descending. 3. 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 4. Presence of a loop recorder. 5. Because of the fact that the nuclear imaging showed a mild reversible defect in the RCA territory and the fact that the left circumflex was so small, no intervention was recommended, the rest pain is not due to cardiac ischemia. She will be treated medically. MD JACQUELIN Salinas/PILI /9:32 AM /10:09 AM [facility]ITALMartha
--- NOTE | 2016-06-10 11:17 | HHI.PR ---
Subjective Interval History awake alert and oriented seen IN PACU after cardiac cath denies any chest pain no other complaints Vitals/Results Intake & Output 06/09/16 06/09/16 06/10/16 15:00 23:00 07:00 Intake Total 750 ml Balance 750 ml IV Total 750 ml # Voids 7 # Bowel Movements 0 Vital Signs Vital Signs Date Time Temp Pulse Resp B/P Pulse Ox O2 Delivery O2 Flow Rate FiO2 06/10/16 07:55 55 06/10/16 07:20 97.5 60 16 139/67 97 06/10/16 06:06 86 18 128/78 97 06/09/16 19:44 97.9 58 18 127/60 97 06/09/16 19:11 60 06/09/16 15:16 95.5 59 16 121/58 95 06/09/16 12:45 54 CBC/BMP: 06/07/16 1430 06/08/16 0310 Assessment/Plan Assessment/Plan Physical Exam Physical Exam PHYSICAL EXAMINATION GENERAL: This is an obese well-developed, female who appears to be in no acute distress resting in the bed. She is alert and awake, affect appropriate HEAD: Normocephalic without any lesion or mass noted. Facial features appear symmetric. OROPHARYNGEAL: Oropharynx without erythema or edema. NECK: Supple. No nuchal rigidity or lymphadenopathy. Trachea midline without deviation. CARDIAC: Regular rhythm, regular rate, S1 and S2 are heard. Murmur none; no gallops or rubs. LUNGS: Clear to auscultation bilaterally. No wheeze, no rhonchi No use of accessory muscles on inspiration or expiration. ABDOMEN: Soft, nontender, no organomegaly or masses. Bowel sounds are heard in all four quadrants. No rebound. No guarding. EXTREMITIES: No edema. Pulses equal bilateral. NEUROLOGICAL: Patient mood and affect appropriate. SKIN:Warm and moist A/P (1) Chest pain (2) Paroxysmal atrial fibrillation (3) Hypertension (4) Acute renal injury (5) Hyperkalemia (6) Dementia (7) History of CVA (cerebrovascular accident) (8) Anxiety Chest pain, DC ruled out, enzymes are negative Appreciate cardiology input s/p cardiac cath 06/10 minimal disease, no intervention needed, medical management cleared by cardiology for discharge after lunch aspirin 81 , Lopressor start low dose ARSALAN i telemetry Acute renal injury Gentle hydration, creatinine improved Monitor Hypertension, stable, medical management Paroxysmal A. fib, stable, she on Pradaxa beta graeme Dementia, stable PT eval Case management consulted patient wants to go home, she has a neighbor to help her until her son is discharged. Discussed with patient Discussed with nurse plan for discharge to home with [facility] after lunch Ann-Marie Greenberg MD Jun 10, 2016 11:17
[2016-06-10] MEDS ORDERED: LISI-519 PO (11:20)
[2016-06-10] MEDS ORDERED: ASPI81TA11 PO (11:20)
[2016-06-10] MEDS ORDERED: PILL SPLITTER OTHER PRN (11:30)
[2016-06-10] MEDS ORDERED: IOHEXOL 350 MG/ML 100 ML BTL (for Cath Lab) OTHER ONE (12:14)
[2016-06-10 12:34] LABS: BICARBONATE 24.8 MEQ/L (21.0-32.0); POTASSIUM 4.1 MEQ/L (3.5-5.1)
--- NOTE | 2016-06-10 18:16 | HHI.DS ---
Discharge Summary Admission Date Jun 07, 2016 at 16:17 Discharge Date: Jun 10, 2016 Admitting Diagnosis Chest Pain (1) Chest pain Diagnosis: Principal (2) Paroxysmal atrial fibrillation Diagnosis: Principal (3) Hypertension Diagnosis: Principal (4) Acute renal injury Diagnosis: Principal (5) Hyperkalemia Diagnosis: Principal (6) Dementia Diagnosis: Secondary (7) History of CVA (cerebrovascular accident) Diagnosis: Secondary (8) Anxiety Diagnosis: Secondary Procedures Heart catheterization Brief History This was an 80-year-old female hypertension, dementia, hyperlipidemia, paroxysmal A. fib on Pradaxa. Patient stated she's had stent in the past, although she doesn't recall when. During prior admissions, she has denied prior history of CAD. Patient presented to the emergency room with complaint of chest pain centrally located that started while she was resting. Describes the pain as aching, no radiation, was about 7-8. It was associated with mild shortness of breath, she did feel sweaty and had mild nausea. Indicates that the pain went away on its own patient did take an aspirin. Patient was not a very good historian, information was obtained from previous medical records and also from the patient. States she has memory problems and has difficulty recalling medical history from the past. 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 Patient was actually seen at the chest pain center on June 02, 2016 and was evaluated by Dr. Alvarado did a stress test. Stress test results were read as stress-induced ischemia inferoseptal region. She was recommended to follow- up with Dr. Cedillo. Patient thought that she did follow up although not sure what transpired during the visit. No other family at bedside to confirm. Patient stated that she's been under a lot of stress, has been shaking. Stated that her son recently moved in with her and is causing some of these problems. Patient denied any domestic abuse, no emotional abuse. States that her son does try to help and takes her to appointments. CBC/BMP: 06/07/16 1430 06/10/16 1150 Significant Findings Laboratory Tests Test 06/07/16 06/08/16 06/10/16 20:33 03:10 11:50 Troponin I LESS THAN 0.02 LESS THAN 0.02 NG/ML NG/ML (0.02-0.05) (0.02-0.05) Chloride Level 110 MEQ/L 109 MEQ/L (98-107) (98-107) Blood Urea Nitrogen 26 MG/DL (7-18) Creatinine 1.16 MG/DL (0.50-1.00) Estimat Glomerular Filtration 45 ML/MIN (>89) 59 ML/MIN (>89) Rate Imaging Last Impressions Chest X-Ray 06/07/16 0830 Signed Impressions: Service Date/Time: Tuesday, June 07, 2016 14:35 - CONCLUSION: 1. Minimal parenchymal changes left base. 2. Cardiac event monitor noted. Solomon Mock MD FACR PE at Discharge GENERAL: This was an obese well-developed, female who appeared to be in no acute distress resting in the bed. She was alert and awake, affect appropriate HEAD: Normocephalic without any lesion or mass noted. Facial features appear symmetric. OROPHARYNGEAL: Oropharynx without erythema or edema. NECK: Supple. No nuchal rigidity or lymphadenopathy. Trachea midline without deviation. CARDIAC: Regular rhythm, regular rate, S1 and S2 are heard. Murmur none; no gallops or rubs. LUNGS: Clear to auscultation bilaterally. No wheeze, no rhonchi No use of accessory muscles on inspiration or expiration. ABDOMEN: Soft, nontender, no organomegaly or masses. Bowel sounds are heard in all four quadrants. No rebound. No guarding. EXTREMITIES: No edema. Pulses equal bilateral. NEUROLOGICAL: Patient mood and affect appropriate. SKIN:Warm and moist Hospital Course Patient was evaluated in emergency room, troponin was negative. She was noted with potassium of 5.2 and also with elevated creatinine 1.33. Patient indicates she hasn't been drinking a lot of water. She is also on Aldactone. EKG shows sinus bradycardia with marked left axis deviation, unchanged from previous. Patient was given 324 mg aspirin by mouth as well as 0.4 mg sublingual nitroglycerin. Also given 0.5 mg lorazepam by mouth. At this time, patient is resting comfortably. She denies any chest discomfort, no shortness of breath. Patient is admitted for further evaluation and treatment. These are the diagnoses that were used for the treatment plan of care during this patient's hospital stay. (1) Chest pain (2) Paroxysmal atrial fibrillation (3) Hypertension (4) Acute renal injury (5) Hyperkalemia (6) Dementia (7) History of CVA (cerebrovascular accident) (8) Anxiety Chest pain, LA ruled out, enzymes are negative Appreciate cardiology consult, patient is going for cardiac catheter this morning at 08 30, since patient has had chest pain more than once in the past year. She was placed on aspirin 81 and, Lopressor Patient was monitored on telemetry, also has an internal event monitor Patient has POA, will follow up as needed. Agreed with the plan. Contact per cardiology Currently patient is awake, alert, and understands situation in process Acute renal injury Gentle hydration, will recheck BMP, which was monitored today. No acute issues or changes Monitor Hypertension, stable, medical management Paroxysmal A. fib, stable, she on Pradaxa beta graeme Dementia, stable Patient has POA that will assist with her plan of care Discharge planning will depend on course of action for treatment, after her cardiac catheterization procedure, it was noted the patient does have cardiovascular disease but did not require any cardiac stents. She will receive medical management for now. Patient was held postop total after lunch, stable without any chest pain or shortness of breath, felt that she could discharge home. Patient agrees with plan and is stable on discharge. Pt Condition on Discharge: Stable Discharge Disposition: Disch w/ Home Health Serv Discharge Instructions DIET: Follow Instructions for: Heart Healthy Diet Activities you can perform: Regular-No Restrictions New Medications: Aspirin DR (Aspirin EC) 81 Mg Tabdr 81 MG PO DAILY CAD #30 TAB Lisinopril (Lisinopril) 5 Mg Tab 2.5 MG PO DAILY CAD #30 TAB Continued Medications: Amlodipine (Amlodipine) 10 Mg Tab 10 MG PO DAILY Blood Pressure Management #30 Ref 0 TAB Brinzolamide-Brimonidine Opth Drops (Simbrinza Opth Drops) 1-0.2% Susp 1 DROP EACH EYE BID Intraocular Pressure #1 Ref 0 BOTTLE Dabigatran (Pradaxa) 150 Mg Cap 150 MG PO DAILY Blood Clot Prevention #60 Ref 0 CAP Loteprednol Opth Drops (Lotemax Opth Drops) 0.5 % Soln 1 DROP RIGHT EYE DAILY Inflammation #1 Ref 0 BOTTLE Metoprolol Tartrate (Metoprolol Tartrate) 50 Mg Tab 50 MG PO BID #60 Ref 0 TAB Sertraline (Zoloft) 25 Mg Tab 50 MG PO DAILY #30 Ref 0 TAB Spironolactone (Spironolactone) 25 Mg Tab 25 MG PO DAILY #30 Ref 0 TAB Mari Panda Jun 10, 2016 18:16
[2016-06-10] MEDS ORDERED: SODIUM CHLORIDE 0.9% FLUSH 10 ML FLUSH IV FLUSH SCH (21:00)
[2016-06-11] MEDS ORDERED: LISINOPRIL 5 MG TAB PO SCH (09:00)
== END 2016-06-10 18:12 | disposition home or self-care (01) ==
LOC: NEPC 14:01 → NEDA 16:17 → NEPHCDU 17:46 → HCIS 06-10 08:28
PROVIDERS: ADMIT Specialist; ATTEND Specialist
DX: I25.10 Atherosclerotic heart disease of native coronary artery without angina pectoris (principal); T82.855A Stenosis of coronary artery stent, initial encounter; I10 Essential (primary) hypertension; E78.00 Pure hypercholesterolemia, unspecified; I48.0 Paroxysmal atrial fibrillation; E78.5 Hyperlipidemia, unspecified; J44.9 Chronic obstructive pulmonary disease, unspecified; F03.90 Unspecified dementia, unspecified severity, without behavioral disturbance, psychotic disturbance, mood disturbance, and anxiety; H91.90 Unspecified hearing loss, unspecified ear; I25.2 Old myocardial infarction; K21.9 Gastro-esophageal reflux disease without esophagitis; Y83.1 Surgical operation with implant of artificial internal device as the cause of abnormal reaction of the patient, or of later complication, without mention of misadventure at the time of the procedure; N17.9 Acute kidney failure, unspecified; I44.7 Left bundle-branch block, unspecified; F41.9 Anxiety disorder, unspecified; G51.0 Bell's palsy; R51 Headache; R07.9 Chest pain, unspecified; Z86.73 Personal history of transient ischemic attack (TIA), and cerebral infarction without residual deficits; Z96.653 Presence of artificial knee joint, bilateral; Z88.1 Allergy status to other antibiotic agents; Z91.041 Radiographic dye allergy status; Z88.5 Allergy status to narcotic agent; Z88.0 Allergy status to penicillin; Z88.2 Allergy status to sulfonamides; Z91.048 Other nonmedicinal substance allergy status; Z79.82 Long term (current) use of aspirin
CPT/HCPCS: 71010; 71275; 80048; 80053; 80061; 82550; 83735; 84484; 85025; 85610; 85730; 93005; 93458; 99285; C1769; C1893; G0378; J1644; J2250; J3010; J7030; Q9967; J1650

== ENCOUNTER 2016-06-10 18:34 | Emergency (ER) | payer MEDICARE, BC ==
[~2016-06-10] VITALS: Ht 165.1 cm; Wt 68.0 kg
[~2016-06-10 18:34] MED LIST changes: +ASPI81TA11 PO; +LISI-519 PO
[2016-06-10 18:35] VITALS: BP 135/65; PULSE 54; RESP 12; TEMP 98.2; O2SAT 96
[2016-06-10 19:27] VITALS: BP 161/67; PULSE 62; RESP 12; TEMP 98.1; O2SAT 97
[2016-06-10] MEDS ORDERED: SODIUM CHLORIDE 0.9% FLUSH 10 ML FLUSH IVF PRN (19:45)
[2016-06-10 20:06] LABS: AUTOMATED NEUTROPHIL # 5.4 TH/MM3 (1.8-7.7); BASOPHIL # 0.1 TH/MM3 (0-0.2); BASOPHIL % 0.9 % (0.0-2.0); EOSINOPHIL # 0.4 TH/MM3 (0-0.4); EOSINOPHIL % 4.3 % (0.0-4.0); HEMATOCRIT 37.4 % (35.0-46.0); HEMO FLAGS DIFF FINAL; LYMPH % 19.4 % (9.0-44.0); LYMPHOCYTE # 1.6 TH/MM3 (1.0-4.8); MEAN CELL VOLUME 85.6 FL (80.0-100.0); MEAN CORPUSCULAR HEMOGLOBIN 29.6 PG (27.0-34.0); MEAN CORPUSCULAR HGB CONC 34.6 % (32.0-36.0); MONO % 9.5 % (0.0-8.0); NEUT % 65.9 % (16.0-70.0); PLATELET COUNT 272 TH/MM3 (150-450); RED BLOOD COUNT 4.37 MIL/MM3 (4.00-5.30); RED CELL DISTRIBUTION WIDTH 13.7 % (11.6-17.2); WHITE BLOOD COUNT 8.2 TH/MM3 (4.0-11.0)
--- NOTE | 2016-06-10 20:12 | PD ---
HPI Chief Complaint: Chest Pain Time Seen by Provider: 19:21 Travel History International Travel<30 days: No Contact w/Intl Traveler<30days: No Traveled to known affect area: No History of Present Illness HPI Patient is a 80 year old female who comes in after an episode of chest pain and near syncope today. She was just released from the hospital today and had not made it home yet when the episode occurred. She was admitted for the same thing. She had a cardiac cath today which showed minimal restenosis of a previous stent, no significant disease. She says that she has a mild frontal headache, but her other symptoms have resolved. Currently she is not having any chest pain or SOB. PFSH Past Medical History Hx Anticoagulant Therapy: Yes (pradaxa) Asthma: No Blood Disorders: No Anxiety: Yes Depression: No Heart Rhythm Problems: Yes Cancer: No Cardiovascular Problems: Yes (HTN) High Cholesterol: Yes Chemotherapy: No Chest Pain: No Congestive Heart Failure: No COPD: Yes Cerebrovascular Accident: Yes Coronary Artery Disease: Yes Dementia: Yes Diabetes: Yes Patient Takes Glucophage: No Diminished Hearing: Yes Endocrine: Yes Gastrointestinal Disorders: Yes (BLOOD IN STOOL PER PATIENT REPORT) GERD: Yes Genitourinary: No Hypertension: Yes Immune Disorder: No Musculoskeletal: No Neurologic: Yes (CASAS'S PALSY, "black out spells", vertigo ) Psychiatric: Yes Reproductive: No Respiratory: Yes Immunizations Current: Yes Radiation Therapy: No Sleep Apnea: No Thyroid Disease: No ?: Not : 2 Para: 2 Past Surgical History Appendectomy: Yes Cholecystectomy: Yes Coronary Stent: Yes Eye Surgery: Yes (RIGHT EYE LENS IMPLANT) Hysterectomy: Yes Joint Replacement: Yes Tonsillectomy: Yes Other Surgery: Yes Social History Alcohol Use: No Tobacco Use: No Substance Use: No Allergies-Medications (Allergen,Severity, Reaction): Coded Allergies: Codeine (Verified Allergy, Severe, ITCHING; PALPITATIONS, 06/10/16) Darvon (Verified Allergy, Severe, ITCHING; PALPITATIONS, 06/10/16) Keflex (Verified Allergy, Severe, ITCHING; PALPITATIONS, 06/10/16) Penicillin (Verified Allergy, Severe, ITCHING; PALPITATIONS, 06/10/16) Sulfa (Verified Allergy, Severe, ITCHING; PALPITATIONS, 06/10/16) Uncoded Allergies: FLUORESCEIN DYE (Allergy, Severe, DIZZINESS; PASSED OUT; PALPITATIONS, 04/30) RED ANTS (Allergy, Severe, RASH; DIFFICULTY BREATHING; ITCHING, 04/30/07) Reported Meds & Prescriptions Reported Meds & Active Scripts Active Lisinopril 5 Mg Tab 2.5 Mg PO DAILY Aspirin EC (Aspirin) 81 Mg Tabdr 81 Mg PO DAILY Reported Simbrinza Opth Drops (Brinzolamide-Brimonidine Opth Drops) 1-0.2% Susp 1 Drop EACH EYE BID Lotemax Opth Drops (Loteprednol Etabonate) 0.5 % Soln 1 Drop RIGHT EYE DAILY Pradaxa (Dabigatran) 150 Mg Cap 150 Mg PO DAILY Amlodipine (Amlodipine Besylate) 10 Mg Tab 10 Mg PO DAILY Metoprolol Tartrate 50 Mg Tab 50 Mg PO BID Spironolactone 25 Mg Tab 25 Mg PO DAILY Zoloft (Sertraline HCl) 25 Mg Tab 50 Mg PO DAILY Review of Systems Except as stated in HPI: all other systems reviewed are Neg General / Constitutional: No: Fever, Chills Eyes: No: Blurred Vision HENT: Positive: Headaches Cardiovascular: Positive: Chest Pain or Discomfort Respiratory: Positive: Shortness of Breath Gastrointestinal: No: Nausea, Vomiting Musculoskeletal: No: Edema, Pain Skin: No Change in Pigmentation Neurologic: No: Weakness, Dizziness Physical Exam Narrative GENERAL: Awake and alert, and no acute distress. SKIN: Focused skin assessment warm/dry. HEAD: Atraumatic. Normocephalic. EYES: Pupils equal and round. No scleral icterus. ENT: Mucous membranes pink and moist. NECK: Trachea midline. No JVD. CARDIOVASCULAR: Regular rate and rhythm. No murmur appreciated. RESPIRATORY: No accessory muscle use. Clear to auscultation. Breath sounds equal bilaterally. GASTROINTESTINAL: Abdomen soft, non-tender, nondistended. MUSCULOSKELETAL: No obvious deformities. No clubbing. No cyanosis. No edema. NEUROLOGICAL: Awake and alert. No obvious cranial nerve deficits. Motor grossly within normal limits. Normal speech. PSYCHIATRIC: Appropriate mood and affect; insight and judgment normal. Data Data Last Documented VS Vital Signs Date Time Temp Pulse Resp B/P Pulse Ox O2 Delivery O2 Flow Rate FiO2 06/10/16 19:27 98.1 62 12 161/67 97 Room Air Orders Electrocardiogram (06/10/16 19:42) Basic Metabolic Panel (Bmp) (06/10/16 19:42) Ckmb (Isoenzyme) Profile (06/10/16 19:42) Complete Blood Count With Diff (06/10/16 19:42) Prothrombin Time / Inr (Pt) (06/10/16 19:42) Act Partial Throm Time (Ptt) (06/10/16 19:42) Troponin I (06/10/16 19:42) Chest, Single Ap (06/10/16 19:42) Ecg Monitoring (06/10/16 19:42) Bilateral Bp Monitoring (06/10/16 19:42) Iv Access Insert/Monitor (06/10/16 19:42) Oximetry (06/10/16 19:42) Sodium Chloride 0.9% Flush (Ns Flush) (06/10/16 19:45) Ct Pulmonary Angiogram (06/10/16 19:48) Iohexol 350 Inj (Omnipaque 350 Inj) (06/10/16 21:56) Labs Laboratory Tests Test 06/10/16 19:45 White Blood Count 8.2 TH/MM3 Red Blood Count 4.37 MIL/MM3 Hemoglobin 13.0 GM/DL Hematocrit 37.4 % Mean Corpuscular Volume 85.6 FL Mean Corpuscular Hemoglobin 29.6 PG Mean Corpuscular Hemoglobin 34.6 % Concent Red Cell Distribution Width 13.7 % Platelet Count 272 TH/MM3 Mean Platelet Volume 8.0 FL Neutrophils (%) (Auto) 65.9 % Lymphocytes (%) (Auto) 19.4 % Monocytes (%) (Auto) 9.5 % Eosinophils (%) (Auto) 4.3 % Basophils (%) (Auto) 0.9 % Neutrophils # (Auto) 5.4 TH/MM3 Lymphocytes # (Auto) 1.6 TH/MM3 Monocytes # (Auto) 0.8 TH/MM3 Eosinophils # (Auto) 0.4 TH/MM3 Basophils # (Auto) 0.1 TH/MM3 CBC Comment DIFF FINAL Differential Comment Prothrombin Time 10.7 SEC Prothromb Time International 1.0 RATIO Ratio Activated Partial 25.1 SEC Thromboplast Time Sodium Level 140 MEQ/L Potassium Level 3.9 MEQ/L Chloride Level 106 MEQ/L Carbon Dioxide Level 24.0 MEQ/L Anion Gap 10 MEQ/L Blood Urea Nitrogen 20 MG/DL Creatinine 1.02 MG/DL Estimat Glomerular Filtration 52 ML/MIN Rate Random Glucose 96 MG/DL Calcium Level 9.8 MG/DL Total Creatine Kinase 51 U/L Troponin I 0.02 NG/ML [facility] Medical Decision Making Medical Screen Exam Complete: Yes Emergency Medical Condition: Yes Medical Record Reviewed: Yes Interpretation(s) ECG shows normal sinus rhythm at [address] elevation or depression Differential Diagnosis PE vs pneumonia vs ACS Narrative Course Patient is a 80 year old female who comes in after an episode of chest pain today. Exam shows no acute abnormalities. IV established, labs sent. Connected to the case monitor. Labs show no acute abnormalities. Chest XR shows no acute abnormalities. CTA chest is negative for PE, shows small hiatal hernia. I spoke with Dr. Reinoso who performed the cardiac catheter today who says that her symptoms are not related to cardiac problems. He feels that she can be discharged home. Patient remains asymptomatic here in the ED. She is sleeping comfortably. Will discharge home to continue her medications and follow up with her doctors. Diagnosis Primary Impression: Chest pain Qualified Code: R07.9 - Chest pain, unspecified type Patient Instructions: Chest Pain (ED), General Instructions Additional Instructions: Continue your medications as directed. Follow up with your doctors. Return to the ED as needed for any worsening symptoms. Disposition: 01 DISCHARGE HOME Condition: Stable Rosie Delgado MD Jun 10, 2016 20:12
[2016-06-10 20:20] LABS: APTT (PATIENT) 25.1 SEC (24.3-30.1); PROTHROMBIN TIME - PATIENT 10.7 SEC (9.8-11.6)
--- NOTE | 2016-06-10 20:26 | RADRPT ---
EXAM DATE/TIME: 06/10/2016 19:55 [facility] COMPARISON: CHEST SINGLE AP, June 07, 2016, 14:35. INDICATIONS : Chest pain. MEDICAL HISTORY : Hypertension. Diabetes mellitus type II. Chronic obstructive pulmonary SURGICAL HISTORY : Cardiac bypass ENCOUNTER: Initial ACUITY: 1 day PAIN SCORE: Non-responsive. LOCATION: Bilateral chest FINDINGS: A single view of the chest demonstrates the lungs to be symmetrically aerated without evidence of mas s, infiltrate or effusion. The cardiomediastinal contours are unremarkable. Osseous structures are intact. CONCLUSION: The lungs are clear. Christ Rosas MD on June 10, 2016 at 20:25 Board Certified Radiologist. This report was verified electronically.
[2016-06-10 20:32] LABS: POTASSIUM 3.9 MEQ/L (3.5-5.1)
[2016-06-10] MEDS ORDERED: IOHEXOL 350 MG/ML 10 ML VIAL (for RAD DIAG) IV ONE (21:56)
--- NOTE | 2016-06-10 22:21 | RADRPT ---
EXAM DATE/TIME: 06/10/2016 21:29 [facility] COMPARISON: No previous studies available for comparison. INDICATIONS : Chest pain and syncope status-post cardiac catheterization today. IV CONTRAST: 70 cc Omnipaque 350 (iohexol) IV RADIATION DOSE: 11.69 CTDIvol (mGy) MEDICAL HISTORY : Hypertension. Chronic obstructive pulmonary disease. Diabetes mellitus type 2. SURGICAL HISTORY : Appendectomy. Cholecystectomy. ENCOUNTER: Initial ACUITY: 1 day PAIN SCALE: 7/10 LOCATION: chest TECHNIQUE: Volumetric scanning of the chest was performed using a pulmonary embolism protocol MIP images were re constructed. Using automated exposure control and adjustment of the mA and/or kV according to patien t size, radiation dose was kept as low as reasonably achievable to obtain optimal diagnostic quality images. Cardiac catheterization was performed approximately 8 hours prior to the examination and the patient was hydrated in the interim. FINDINGS: PULMONARY ARTERIES: No filling defects are seen in the pulmonary arteries through the segmental level. LUNGS: There is no consolidation or pneumothorax . No concerning pulmonary nodule is visualized. PLEURAE: There is no pleural thickening or pleural effusion. MEDIASTINUM: There is good visualization of the great vessels of the middle mediastinum. No evidence of mediastin al or hilar adenopathy/mass. CONCLUSION: Studies negative for pulmonary embolism. Small hiatus hernia. Christ Rosas MD on June 10, 2016 at 22:17 Board Certified Radiologist. This report was verified electronically.
--- NOTE | 2016-06-11 09:19 | EKG ---
Date Performed: 06/10/2016 Time Performed: 19:58:38 PTAGE: 80 years EKG: SINUS BRADYCARDIA MARKED LEFT AXIS DEVIATION INTRAVENTRICULAR CONDUCTION DELAY POSSIBLE LEF T VENTRICULAR HYPERTROPHY POSSIBLE ANTERIOR MYOCARDIAL INFARCTION ABNORMAL ECG PREVIOUS TRACING : 06/08/2016 02.39 DOCTOR: Raul Muir Interpretating Date/Time 06/11/2016 09:17:48
== END 2016-06-11 01:33 | disposition home or self-care (01) ==
LOC: NEPC 18:34
DX: R07.9 Chest pain, unspecified (principal); R51 Headache; I25.10 Atherosclerotic heart disease of native coronary artery without angina pectoris; I10 Essential (primary) hypertension
CPT/HCPCS: 71010; 71275; 80048; 82550; 84484; 85025; 85610; 85730; 93005; 99285; Q9967

== ENCOUNTER 2016-06-30 03:49 | Observation (INO) | payer MEDICARE, BC ==
[2016-06-30] VITALS (8 sets, daily range): BP systolic 122–132; BP diastolic 57–60; PULSE 55–78; RESP 17–20; TEMP 97.7–98; O2SAT 97–98
[~2016-06-30] VITALS: Ht 165.1 cm; Wt 65.0 kg
[2016-06-30] MEDS ORDERED: SODIUM CHLORIDE 0.9% FLUSH 10 ML FLUSH IVF PRN (04:15)
[2016-06-30] MEDS ORDERED: NITROGLYCERIN 2% OINT 1 GM PACKET TOP ONE (04:15)
[2016-06-30 04:31] LABS: AUTOMATED NEUTROPHIL # 4.3 TH/MM3 (1.8-7.7); BASOPHIL % 0.6 % (0.0-2.0); EOSINOPHIL # 0.4 TH/MM3 (0-0.4); EOSINOPHIL % 5.1 % (0.0-4.0); HEMATOCRIT 35.6 % (35.0-46.0); HEMO FLAGS DIFF FINAL; LYMPH % 24.6 % (9.0-44.0); LYMPHOCYTE # 1.7 TH/MM3 (1.0-4.8); MEAN CELL VOLUME 85.9 FL (80.0-100.0); MEAN CORPUSCULAR HEMOGLOBIN 30.3 PG (27.0-34.0); MEAN CORPUSCULAR HGB CONC 35.2 % (32.0-36.0); MONO % 9.4 % (0.0-8.0); NEUT % 60.3 % (16.0-70.0); PLATELET COUNT 244 TH/MM3 (150-450); RED BLOOD COUNT 4.15 MIL/MM3 (4.00-5.30); RED CELL DISTRIBUTION WIDTH 13.5 % (11.6-17.2); WHITE BLOOD COUNT 7.1 TH/MM3 (4.0-11.0)
--- NOTE | 2016-06-30 04:36 | RADRPT ---
EXAM DATE/TIME: 06/30/2016 04:12 [facility] COMPARISON: CHEST SINGLE AP, June 10, 2016, 19:55. INDICATIONS : Chest pain. MEDICAL HISTORY : Hypertension. Chronic obstructive pulmonary disease. Diabetes mellitus type II. SURGICAL HISTORY : None. ENCOUNTER: Initial ACUITY: 1 day PAIN SCORE: Non-responsive. LOCATION: Bilateral chest FINDINGS: A single view of the chest demonstrates the lungs to be symmetrically aerated without evidence of mas s, infiltrate or effusion. The cardiomediastinal contours are unremarkable. Osseous structures are intact. CONCLUSION: No acute disease. No significant change has occurred. Tonny Loya MD on June 30, 2016 at 4:35 Board Certified Radiologist. This report was verified electronically.
[2016-06-30 04:49] LABS: APTT (PATIENT) 30.8 SEC (24.3-30.1); PROTHROMBIN TIME - PATIENT 10.7 SEC (9.8-11.6)
--- NOTE | 2016-06-30 04:55 | PD ---
HPI Chief Complaint: Chest Pain Time Seen by Provider: 03:54 Travel History International Travel<30 days: No Contact w/Intl Traveler<30days: No Traveled to known affect area: No History of Present Illness HPI The patient is an 80 year old female who presents to the [facility] emergency department with a history of chest pain that she reports recurred 30 minutes ago. The patient was brought in by ambulance services. The patient was given aspirin and 162 mg prior to arrival and one sublingual nitroglycerin. The patient reported ambulance services that the pain had been constant for 30 minutes, sharp in character and a 4 out of 10 in severity. On arrival, the patient reports that the chest pain has resolved. She denies having any shortness of breath currently. She denies having any diaphoresis or nausea. The patient reported ambulance services that her defibrillator fired 1 prior to arrival. The patient's blood sugar prior to arrival was reportedly 89. The patient was noted to have a left bundle branch block on her ECG. She cannot recall the name of her android developer, however she reports her primary care physician is Dr. House. The patient reports that she does live at home alone. According to ambulance services, the patient reported to them that her defibrillator also fired a month ago. She does confirm this, however she is a poor historian and has difficulty recalling any of the events regarding the workup. She is unsure whether her pacemaker was interrogated. Current reviewing the patient's electronic medical record, there is no report of her pacemaker firing. The patient was admitted twice recently related to chest pain. The patient had an abnormal stress test and then had a cardiac catheterization done which showed mild coronary disease and a stent that they were medically managing. The patient denies any recent fevers, cough, congestion, neck pain, abdominal pain, vomiting, diarrhea, urinary symptoms, or neurologic symptoms. PFSH Past Medical History Narrative Medical The patient's past medical history is reportedly significant for coronary artery disease status post stent placement, history of paroxysmal atrial fibrillation, history of Domingo's palsy, history of dementia. Hx Anticoagulant Therapy: Yes (pradaxa) Asthma: No Blood Disorders: No Anxiety: Yes Depression: No Heart Rhythm Problems: Yes Cancer: No Cardiovascular Problems: Yes High Cholesterol: Yes Chemotherapy: No Chest Pain: No Congestive Heart Failure: No COPD: Yes Cerebrovascular Accident: Yes Coronary Artery Disease: Yes Dementia: Yes Diabetes: Yes Patient Takes Glucophage: No Diminished Hearing: Yes Endocrine: Yes Gastrointestinal Disorders: Yes (BLOOD IN STOOL PER PATIENT REPORT) GERD: Yes Genitourinary: No Hypertension: Yes Immune Disorder: No Musculoskeletal: No Neurologic: Yes (DOMINGO'S PALSY, VERTIGO ) Psychiatric: Yes Reproductive: No Respiratory: Yes Immunizations Current: Yes Radiation Therapy: No Sleep Apnea: No Thyroid Disease: No ?: Not : 2 Para: 2 Past Surgical History Narrative Surgical The patient's past surgical history is significant for bilateral knee replacement, history of eye surgery, appendectomy, cholecystectomy, tonsillectomy, hysterectomy. Appendectomy: Yes Cholecystectomy: Yes Coronary Stent: Yes Eye Surgery: Yes (RIGHT EYE LENS IMPLANT) Hysterectomy: Yes Joint Replacement: Yes Tonsillectomy: Yes Other Surgery: Yes Social History Alcohol Use: No Tobacco Use: No Substance Use: No Allergies-Medications (Allergen,Severity, Reaction): Coded Allergies: Codeine (Verified Allergy, Severe, ITCHING; PALPITATIONS, 06/30/16) Darvon (Verified Allergy, Severe, ITCHING; PALPITATIONS, 06/30/16) Keflex (Verified Allergy, Severe, ITCHING; PALPITATIONS, 06/30/16) Penicillin (Verified Allergy, Severe, ITCHING; PALPITATIONS, 06/30/16) Sulfa (Verified Allergy, Severe, ITCHING; PALPITATIONS, 06/30/16) Uncoded Allergies: FLUORESCEIN DYE (Allergy, Severe, DIZZINESS; PASSED OUT; PALPITATIONS, 04/30) RED ANTS (Allergy, Severe, RASH; DIFFICULTY BREATHING; ITCHING, 04/30/07) Reported Meds & Prescriptions Reported Meds & Active Scripts Active Lisinopril 5 Mg Tab 2.5 Mg PO DAILY Aspirin EC (Aspirin) 81 Mg Tabdr 81 Mg PO DAILY Reported Simbrinza Opth Drops (Brinzolamide-Brimonidine Opth Drops) 1-0.2% Susp 1 Drop EACH EYE BID Lotemax Opth Drops (Loteprednol Etabonate) 0.5 % Soln 1 Drop RIGHT EYE DAILY Pradaxa (Dabigatran) 150 Mg Cap 150 Mg PO DAILY Amlodipine (Amlodipine Besylate) 10 Mg Tab 10 Mg PO DAILY Metoprolol Tartrate 50 Mg Tab 50 Mg PO BID Spironolactone 25 Mg Tab 25 Mg PO DAILY Zoloft (Sertraline HCl) 25 Mg Tab 50 Mg PO DAILY Review of Systems Except as stated in HPI: all other systems reviewed are Neg General / Constitutional: No: Fever Eyes: No: Visual changes HENT: No: Headaches Cardiovascular: Positive: Chest Pain or Discomfort, Dyspnea on exertion Respiratory: No: Shortness of Breath Gastrointestinal: No: Abdominal Pain Genitourinary: No: Dysuria Musculoskeletal: No: Pain Skin: No Rash Neurologic: No: Weakness, Focal Abnormalities, Change in Mentation, Slurred Speech, Sensory Disturbance Psychiatric: No: Depression Endocrine: No: Polydipsia Hematologic/Lymphatic: No: Easy Bruising Physical Exam Narrative General: The patient is a well-developed well-nourished female in no acute distress. Head and Neck exam: Head is normocephalic atraumatic. Eyes: EOMI, pupils are equal round and reactive to light. Nose: Midline septum with pink mucous membranes Mouth: Dentition unremarkable. Moist mucus membranes. Posterior oropharynx is not erythematous. No tonsillar hypertrophy. Uvula midline. Airway patent. Neck: No palpable lymphadenopathy. No nuchal rigidity. No thyromegaly. Cardiovascular: Regular rate and rhythm without murmurs, gallops, or rubs. No pulse deficit to the extremities and simultaneous auscultation and palpation of the radial artery. Lungs: Clear to auscultation bilaterally. No wheezes, rhonchi, or rales. Abdomen: Soft, without tenderness to palpation in all 4 quadrants of the abdomen. No guarding, rebound, or rigidity. Normal bowel sounds are audible. No tenderness on palpation of McBurney's point. Extremities: No clubbing, cyanosis, or edema. 2+ pulses in all 4 extremities. No calf tenderness on palpation. Back: No costovertebral angle tenderness to palpation. Neurologic Exam: Grossly nonfocal. Skin Exam: No rash noted. Intact skin that is warm and dry. Data Data Last Documented VS Vital Signs Date Time Temp Pulse Resp B/P Pulse Ox O2 Delivery O2 Flow Rate FiO2 06/30/16 04:06 18 97 06/30/16 04:06 Nasal Cannula 2 06/30/16 03:59 56 06/30/16 03:56 97.9 131/59 Orders Electrocardiogram (06/30/16 04:01) B-Type Natriuretic Peptide (06/30/16 04:01) Ckmb (Isoenzyme) Profile (06/30/16 04:01) Complete Blood Count With Diff (06/30/16 04:01) Comprehensive Metabolic Panel (06/30/16 04:01) Magnesium (Mg) (06/30/16 04:01) Prothrombin Time / Inr (Pt) (06/30/16 04:01) Act Partial Throm Time (Ptt) (06/30/16 04:01) Troponin I (06/30/16 04:01) Lipase (06/30/16 04:01) Chest, Single Ap (06/30/16 04:01) Ecg Monitoring (06/30/16 04:01) Bilateral Bp Monitoring (06/30/16 04:01) Iv Access Insert/Monitor (06/30/16 04:01) Oximetry (06/30/16 04:01) Oxygen Administration (06/30/16 04:01) Nitroglycerin 2% Oint (Nitroglycerin 2% (06/30/16 04:15) Sodium Chloride 0.9% Flush (Ns Flush) (06/30/16 04:15) Admit Order (Ed Use Only) (06/30/16 06:28) Labs Laboratory Tests Test 06/30/16 04:11 White Blood Count 7.1 TH/MM3 Red Blood Count 4.15 MIL/MM3 Hemoglobin 12.6 GM/DL Hematocrit 35.6 % Mean Corpuscular Volume 85.9 FL Mean Corpuscular Hemoglobin 30.3 PG Mean Corpuscular Hemoglobin 35.2 % Concent Red Cell Distribution Width 13.5 % Platelet Count 244 TH/MM3 Mean Platelet Volume 8.3 FL Neutrophils (%) (Auto) 60.3 % Lymphocytes (%) (Auto) 24.6 % Monocytes (%) (Auto) 9.4 % Eosinophils (%) (Auto) 5.1 % Basophils (%) (Auto) 0.6 % Neutrophils # (Auto) 4.3 TH/MM3 Lymphocytes # (Auto) 1.7 TH/MM3 Monocytes # (Auto) 0.7 TH/MM3 Eosinophils # (Auto) 0.4 TH/MM3 Basophils # (Auto) 0.0 TH/MM3 CBC Comment DIFF FINAL Differential Comment Prothrombin Time 10.7 SEC Prothromb Time International 1.0 RATIO Ratio Activated Partial 30.8 SEC Thromboplast Time Sodium Level 142 MEQ/L Potassium Level 4.4 MEQ/L Chloride Level 112 MEQ/L Carbon Dioxide Level 20.5 MEQ/L Anion Gap 10 MEQ/L Blood Urea Nitrogen 18 MG/DL Creatinine 1.15 MG/DL Estimat Glomerular Filtration 45 ML/MIN Rate Random Glucose 90 MG/DL Calcium Level 9.4 MG/DL Magnesium Level 2.1 MG/DL Total Bilirubin 0.2 MG/DL Aspartate Amino Transf 23 U/L (AST/SGOT) Alanine Aminotransferase 25 U/L (ALT/SGPT) Alkaline Phosphatase 57 U/L Total Creatine Kinase 47 U/L Troponin I LESS THAN 0.02 NG/ML B-Type Natriuretic Peptide 69 PG/ML Total Protein 7.2 GM/DL Albumin 3.5 GM/DL Lipase 285 U/L [facility] Medical Decision Making Medical Screen Exam Complete: Yes Emergency Medical Condition: Yes Medical Record Reviewed: Yes Interpretation(s) Last Impressions Chest X-Ray 06/30/16 0401 Signed Impressions: Service Date/Time: Thursday, June 30, 2016 04:12 - CONCLUSION: No acute disease. No significant change has occurred. Tonny Loya MD Differential Diagnosis Acute coronary syndrome, versus cardiac arrhythmia with defibrillator fire, versus anxiety disorder Narrative Course During the course of the patients emergency department visit, the patients history, examination, and differential diagnosis were reviewed with the patient. The patient had [-] IV access obtained and blood work sent for analysis. The patient was placed on a electric clock mechanic with oximetry and blood pressure monitoring. An EKG was done on arrival. The patient's EKG shows a sinus bradycardia with heart rate of 53, left axis deviation, intraventricular conduction delay with QRS duration 129 ms, QTC [address] segment elevation or depression. On further investigation, the patient has no evidence of having a defibrillator placed previously. The patient has had a loop recorder placed previously. The patient was initially provided nitroglycerin 1 inch the chest wall. The patient took aspirin within the last 24 hours. The patients laboratory studies were reviewed and remarkable for a CBC that is unremarkable, CMP shows a creatinine of 1.15, initial set of cardiac enzymes are negative. The TM unremarkable. Radiology studies were reviewed and remarkable for a chest x-ray that shows no acute abnormality. The patients results were discussed with the patient, including the plan of care. I explained that further testing and/ or monitoring is indicated based on the patients history, examination, and/ or laboratory findings. Therefore, I recommended admission for additional evaluation. The patient expressed understanding and was agreeable with this plan. The patient was admitted to the hospital in stable condition and sent to a bed under the care of the [facility] hospitalist group. Physician Communication Physician Communication The patient's case was discussed with Dominik Wong who did agree to admit the patient to the [facility]ist group. Diagnosis Primary Impression: Chest pain, rule out acute myocardial infarction Additional Impression: History of coronary artery disease Admitting Information Admitting Physician Requests: Observation Marlys Solis MD Jun 30, 2016 04:55
[2016-06-30 05:04] LABS: ALKALINE PHOSPHATASE 57 U/L (45-117); ALT (GPT) 25 U/L (10-53); ANION GAP 10 MEQ/L (5-15); AST (GOT) 23 U/L (15-37); BICARBONATE 20.5 MEQ/L (21.0-32.0); BLOOD UREA NITROGEN 18 MG/DL (7-18); CHLORIDE 112 MEQ/L (98-107); CREATINE KINASE 47 U/L (26-192); GLOMERULAR FILTRATION RATE 45 ML/MIN (>89); MAGNESIUM 2.1 MG/DL (1.5-2.5); POTASSIUM 4.4 MEQ/L (3.5-5.1); SODIUM (NA) 142 MEQ/L (136-145); TOTAL BILIRUBIN ADULT 0.2 MG/DL (0.2-1.0)
[2016-06-30] MEDS ORDERED: ONDANSETRON HCL 4 MG/2 ML VIAL IVP PRN (07:00)
[2016-06-30] MEDS ORDERED: NALOXONE HCL 0.4 MG/ML AMP IV PRN (07:00)
[2016-06-30] MEDS ORDERED: SODIUM CHLORIDE 0.9% FLUSH 10 ML FLUSH IV FLUSH PRN (07:00)
[2016-06-30] MEDS ORDERED: NITROGLYCERIN 0.4 MG SL 25 TABS/BTL SL PRN (07:00)
[2016-06-30] MEDS ORDERED: ACETAMINOPHEN 325 MG TAB PO PRN (07:00)
--- NOTE | 2016-06-30 09:30 | MH ---
cc: SHIRAZ QUEEN MD DATE OF ADMISSION: 06/30/2016 DATE OF : 1935 CHIEF COMPLAINT Chest pain. TRAVEL IN THE LAST 30 DAYS None. HISTORY OF PRESENT ILLNESS This is a pleasant 80-year-old female who has been having chest pain since 0300 this a.m. The patient is a poor historian with dementia and cannot recall history as well as current events of her pain unless prompted by family members. Most of the information I am getting is from the record. The family member states she started having pain at 0300, was given nitroglycerin and began to feel better. According to the record the pain was sharp in character, was rated 4/10 on arrival. The patient denies any shortness of breath. Denies nausea, vomiting or diaphoresis. The patient reported to the ambulance service that her defibrillator had fired one time, but when questioned during my exam the patient was unaware whether it fired or not. She did state that on occasions "it feels funny." The patient was noted to have a bundle branch block on her EKG. The patient's family member does have her pacemaker with AICD card that was implanted on September 2014. According to the record the patient has had a heart cath and an abnormal stress test, unknown date, and has had a stent placed. Currently the patient is awake, resting on the stretcher. Currently denies any chest pain. PAST MEDICAL HISTORY 1. Diabetes. 2. Dementia. 3. Coronary artery disease. 4. CVA. 5. COPD. 6. Hyperlipidemia. 7. Anxiety disorder. 8. Blood in stool per patient report. 9. GERD. 10. Hypertension. 11. Domingo's palsy. 12. Vertigo. 13. Right eye blindness. PAST SURGICAL HISTORY 1. Pacemaker with AICD, September 2014. 2. Appendectomy. 3. Cholecystectomy. 4. Coronary stents. 5. Right eye lens implant. 6. Tonsillectomy. 7. Joint replacement surgery. 8. Hysterectomy. ALLERGIES 1. CODEINE. 2. DARVON. 3. FLUORESCEIN DYE. 4. RED ANTS. 5. SULFA. 6. PENICILLIN. 7. KEFLEX. MEDICATIONS Active medications and reported medications: 1. Lisinopril. 2. Aspirin. 3. Pradaxa. 4. Amlodipine. 5. Metoprolol. 6. Spirolactone. 7. Zoloft. 8. Lotemax ophthalmic drops. 9. Simbrinza ophthalmic drops. SOCIAL HISTORY No tobacco, alcohol or illicit drugs. REVIEW OF SYSTEMS Positives noted in HPI which include chest pain and possible firing of her defibrillator. Otherwise systems are negative or unremarkable. PHYSICAL EXAMINATION VITAL SIGNS: Temperature 97.9, pulse 56, respirations 18, blood pressure 131/59. O2 sat 97 on two liters nasal cannula. GENERAL: A slim well-nourished white female who looks to be her stated age resting on the stretcher. She is awake and a poor historian. SKIN: [place], warm and dry. HEENT: Atraumatic, normocephalic. Left eye is 3 mm and reactive. Right eye nonreactive. NECK: Supple. CARDIOVASCULAR: S1, S2. Rhythm is regular. No murmurs, rubs or gallops audible. Heart sounds are distant. PULMONARY: Lungs are essentially clear without wheezes, rales or rhonchi. ABDOMEN: Soft, nontender. Active bowel sounds. EXTREMITIES: Moves all four extremities with purpose. 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 She has no edema in the lower extremities. Pulses are intact. NEUROLOGIC: She is awake, sometimes can answer very simple questions, but a poor historian as noted. PSYCHIATRIC: Mood is appropriate. Speech is clear. LABORATORY CBC normal with white count 7.1, RBC 4.15, hemoglobin 12.6, hematocrit 35.6, platelet count 244, monocyte percentage 9.4, eosinophils 5.1. Chemistry: Sodium 142, potassium 4.4, chloride 112, carbon dioxide 20.5, amnion gap 10, BUN 18, creatinine 1.15, GFR 45, troponin less than 0.02, BNP 69, lipase 285, albumin 3.5, total protein 7.2. INR is 1. IMAGING Chest x-ray: No acute disease. ASSESSMENT 1. Chest pain, rule out [place] and cardiac ischemia. 2. Hypertension. 3. Dementia. 4. Diabetes type 2. 5. History of CVA. PLAN 1. Place on observation. 2. Will consult cardiology for their expert opinion. 3. DVT prophylaxis with heparin. 4. PUD prophylaxis will be added with Pepcid. 5. Nitroglycerin ointment is in place. 6. Will check her vital signs every 4 hours and/or as warranted. 7. O2 at two liters p.r.n. 8. Will monitor her labs. 9. Maintain IV access. 10. Heart-healthy diet. 11. The patient is to my knowledge full code, full aggressive care. 12. We will follow. Dictated by: ROSA Kilpatrick MD SHANT De Jesus/BT /8:30 AM /9:30 AM pt is seen & examined d/w PT [forgetful , poor hsitorian] d/w Mari segura Orders will f/u Shiraz Queen MD Jun 30, 2016 12:24 MTDD
[2016-06-30] MEDS: HEPARIN SODIUM - SQ 10,000 UNITS/ML VIAL SQ SCH ×2 (11:37→21:03)
[2016-06-30] MEDS: NITROGLYCERIN 2% OINT 1 GM PACKET TOP SCH ×3 (11:37→18:32)
[2016-06-30] MEDS: SODIUM CHLORIDE 0.9% FLUSH 10 ML FLUSH IV FLUSH SCH ×2 (11:37→21:00)
--- NOTE | 2016-06-30 12:24 | HHI.PR ---
Objective Objective Results - Vital Signs Date Time Temp Pulse Resp B/P Pulse Ox O2 Delivery O2 Flow Rate FiO2 06/30/16 11:54 55 132/60 06/30/16 10:26 97.8 60 18 124/59 98 06/30/16 04:06 18 97 06/30/16 04:06 97 Nasal Cannula 2 06/30/16 03:59 56 18 98 06/30/16 03:56 97.9 56 18 131/59 98 Result Diagram: 06/30/16 0411 06/30/16 0411 Other Results Laboratory Tests Test 06/30/16 06/30/16 04:11 09:32 White Blood Count 7.1 Red Blood Count 4.15 Hemoglobin 12.6 Hematocrit 35.6 Mean Corpuscular Volume 85.9 Mean Corpuscular Hemoglobin 30.3 Mean Corpuscular Hemoglobin 35.2 Concent Red Cell Distribution Width 13.5 Platelet Count 244 Mean Platelet Volume 8.3 Neutrophils (%) (Auto) 60.3 Lymphocytes (%) (Auto) 24.6 Monocytes (%) (Auto) 9.4 Eosinophils (%) (Auto) 5.1 Basophils (%) (Auto) 0.6 Neutrophils # (Auto) 4.3 Lymphocytes # (Auto) 1.7 Monocytes # (Auto) 0.7 Eosinophils # (Auto) 0.4 Basophils # (Auto) 0.0 CBC Comment DIFF FINAL Differential Comment Prothrombin Time 10.7 Prothromb Time International 1.0 Ratio Activated Partial 30.8 Thromboplast Time Sodium Level 142 Potassium Level 4.4 Chloride Level 112 Carbon Dioxide Level 20.5 Anion Gap 10 Blood Urea Nitrogen 18 Creatinine 1.15 Estimat Glomerular Filtration 45 Rate Random Glucose 90 Calcium Level 9.4 Magnesium Level 2.1 Total Bilirubin 0.2 Aspartate Amino Transf 23 (AST/SGOT) Alanine Aminotransferase 25 (ALT/SGPT) Alkaline Phosphatase 57 Total Creatine Kinase 47 Troponin I LESS THAN 0.02 LESS THAN 0.02 B-Type Natriuretic Peptide 69 Total Protein 7.2 Albumin 3.5 Lipase 285 Physical Exam Physical Exam pt is seen & examined d/w PT [forgetful , poor hsitorian] d/w Mari see Orders will f/u Mary Grace Queen MD Jun 30, 2016 12:24
--- NOTE | 2016-06-30 14:20 | EKG ---
Date Performed: 06/30/2016 Time Performed: 03:52:28 PTAGE: 80 years EKG: SINUS BRADYCARDIA WITH SINUS ARRHYTHMIA MARKED LEFT AXIS DEVIATION MODERATE INTRAVENTRICULA R CONDUCTION DELAY MINIMAL VOLTAGE CRITERIA FOR LVH, CONSIDER NORMAL VARIANT ABNORMAL ECG Compared to prior tracing no significant change PREVIOUS TRACING : 06/10/2016 19.58 DOCTOR: Darian Flood Interpretating Date/Time 06/30/2016 14:18:56
[2016-06-30 14:29] LABS: HEMATOCRIT 36.6 % (35.0-46.0); MEAN CELL VOLUME 86.7 FL (80.0-100.0); MEAN CORPUSCULAR HEMOGLOBIN 29.6 PG (27.0-34.0); MEAN CORPUSCULAR HGB CONC 34.1 % (32.0-36.0); PLATELET COUNT 241 TH/MM3 (150-450); RED BLOOD COUNT 4.22 MIL/MM3 (4.00-5.30); RED CELL DISTRIBUTION WIDTH 13.5 % (11.6-17.2); REVIEW FLAG FINAL; WHITE BLOOD COUNT 7.8 TH/MM3 (4.0-11.0)
[2016-07-01 00:07] VITALS: BP 120/58; PULSE 60; RESP 18; TEMP 98.7; O2SAT 93
[2016-07-01 03:02] VITALS: BP 137/63; PULSE 61; RESP 20; TEMP 97.8; O2SAT 95
[2016-07-01] MEDS: NITROGLYCERIN 2% OINT 1 GM PACKET TOP SCH ×3 (06:00→12:00)
--- NOTE | 2016-07-01 07:08 | MB ---
cc: OLGA MARIA DATE OF CONSULTATION: 06/30/2016 HISTORY OF PRESENT ILLNESS Ms. Armando is an 80-year-old white female with a history of dementia. She presented with chest pain which she localizes to the epigastrium, sharp and reproducible with chest palpation. She was not sure if her defibrillator fired. She has occasional lapses of memory. She currently denies any shortness of breath, dizziness, lightheadedness, palpitations or peripheral edema. She is currently pain-free. PAST MEDICAL HISTORY 1. Coronary artery disease. 2. ICD placement in September 2014. 3. Diabetes mellitus. 4. Dementia. 5. CVA. 6. COPD. 7. Dyslipidemia. 8. Anxiety. 9. Hematochezia. 10.Gastroesophageal reflux disease. 11.Hypertension. 12.Domingo's palsy. 13.Right eye blindness. 14.Vertigo. PAST SURGICAL HISTORY 1. Appendectomy. 2. Cholecystectomy. 3. Coronary stenting. 4. Right eye lens implant. 5. Tonsillectomy. 6. Joint replacement. 7. Hysterectomy. MEDICATIONS 1. Simbrinza drops. 2. Lotemax drops. 3. Zoloft. 4. Spironolactone. 5. Metoprolol. 6. Amlodipine. 7. Pradaxa. 8. Aspirin. 9. Lisinopril. ALLERGIES 1. CODEINE. 2. DARVON. 3. FLUORESCEIN DYE. 4. SULFA. 5. PENICILLIN. 6. KEFLEX. SOCIAL HISTORY The patient does not smoke. She does not drink alcohol. FAMILY HISTORY Negative for heart disease. REVIEW OF SYSTEMS Otherwise negative. PHYSICAL EXAMINATION VITAL SIGNS: Blood pressure 124/57, pulse 67 and regular. HEENT: Negative. NECK: 2+ carotid upstrokes. No bruits. LUNGS: Clear. HEART: Regular. No murmur or gallop. ABDOMEN: Soft. No bruit. Epigastric pain is reproducible with chest palpation. EXTREMITIES: Without edema. 2+ distal pulses. NEUROLOGIC: Grossly nonfocal. EKG EKG was reviewed and showed normal sinus rhythm, left axis, intraventricular conduction delay, LVH, no acute changes. LABORATORY Hemoglobin 12.5. Potassium 4.4. Creatinine 1.1. AST and ALT normal. Troponin negative x3. BNP 69. DIAGNOSIS 1. Atypical chest pain. 2. Coronary artery disease, history of coronary stenting. 3. Status post ICD placement. 4. Hypertension. 5. Diabetes mellitus. 6. History of CVA. 7. Dementia. DISPOSITION Ms. Armando presented with atypical chest discomfort which is actually localized to her epigastrium. This pain is reproducible with palpation. It is unlikely it represents acute coronary syndrome. She has been ruled out for myocardial infarction by enzymes. Her EKG is unremarkable. She will be monitored on telemetry. We will continue her current medical program including therapy for coronary artery disease. I also recommend to continue aggressive modification of her cardiac risk factors. I will follow her for cardiology during her hospitalization. MD BLANCHE Cook/ROWENA /6:04 PM /6:49 AM MTDD
[2016-07-01 07:27] VITALS: PULSE 66
[2016-07-01 07:44] VITALS: BP 108/55; PULSE 71; RESP 17; TEMP 98; O2SAT 96
[2016-07-01 07:54] LABS: BICARBONATE 23.8 MEQ/L (21.0-32.0); POTASSIUM 4.3 MEQ/L (3.5-5.1)
[2016-07-01 07:56] LABS: HDL CHOLESTEROL 57.6 MG/DL (40.0-60.0)
[2016-07-01 08:16] VITALS: O2SAT 94
[2016-07-01] MEDS: HEPARIN SODIUM - SQ 10,000 UNITS/ML VIAL SQ SCH (08:17)
[2016-07-01] MEDS: SODIUM CHLORIDE 0.9% FLUSH 10 ML FLUSH IV FLUSH SCH (08:18)
[2016-07-01 08:32] LABS: HEMATOCRIT 39.4 % (35.0-46.0); MEAN CELL VOLUME 89.8 FL (80.0-100.0); MEAN CORPUSCULAR HEMOGLOBIN 29.7 PG (27.0-34.0); MEAN CORPUSCULAR HGB CONC 33.1 % (32.0-36.0); PLATELET COUNT 204 TH/MM3 (150-450); RED BLOOD COUNT 4.38 MIL/MM3 (4.00-5.30); RED CELL DISTRIBUTION WIDTH 13.7 % (11.6-17.2); REVIEW FLAG FINAL; WHITE BLOOD COUNT 5.3 TH/MM3 (4.0-11.0)
--- NOTE | 2016-07-01 09:41 | HHI.PR ---
Subjective Remarks feels well resting comfortably in bed No more CP or SOB good appetite pleasantly confused Offers no other c/o POA , Beatrice at bedside (Mary Grace Queen MD) Objective Objective Results - Vital Signs Date Time Temp Pulse Resp B/P Pulse Ox O2 Delivery O2 Flow Rate FiO2 07/01/16 08:16 94 21 07/01/16 07:44 98.0 71 17 108/55 96 07/01/16 07:27 66 07/01/16 03:02 97.8 61 20 137/63 95 07/01/16 00:07 98.7 60 18 120/58 93 06/30/16 23:31 78 06/30/16 20:09 98.0 65 20 122/57 97 06/30/16 19:21 59 06/30/16 15:52 97.7 67 17 124/57 97 06/30/16 11:54 55 132/60 06/30/16 10:26 97.8 60 18 124/59 98 I/O 06/30/16 06/30/16 06/30/16 07/01/16 07/01/16 07/01/16 07:00 15:00 23:00 07:00 15:00 23:00 Intake Total 400 ml Balance 400 ml Intake Oral 400 ml (Mari Panda) Result Diagram: 07/01/16 0656 07/01/16 0656 Physical Exam Physical Exam PHYSICAL EXAMINATION GENERAL: This is a well-developed, well-nourished female who appears to be in no acute distress. She is alert and awake, pleasant confusion HEAD: Normocephalic without any lesion or mass noted. Facial features appear symmetric. OROPHARYNGEAL: Oropharynx without erythema or edema. NECK: Supple. No nuchal rigidity or lymphadenopathy. Trachea midline without deviation. CARDIAC: Regular rhythm, regular rate, S1 and S2 are heard. LUNGS: Clear to auscultation bilaterally. ABDOMEN: Soft, nontender, no organomegaly or masses. Bowel sounds are heard in all four quadrants. No rebound. No guarding. EXTREMITIES: No edema. NEUROLOGICAL: affect appropriate. Pleasant confusion SKIN:Warm and moist Objective Remarks No chest pain today (Mari Panda) Physical Exam forgetful., pleasantly confused (Mary Grace Queen MD) A/P Assessment and Plan 1. Chest pain, rule out [place] and cardiac ischemia. Cardiac consult . Appreciate input. Patient has had no more chest pain since admission This is cardiology recommendation atypical chest discomfort which is actually localized to her epigastrium. This pain is reproducible with chest palpation. It unlikely represents acute coronary syndrome. She has been ruled out for myocardial infarction by enzymes. Her EKG is unremarkable. She will be monitored on telemetry. Will continue her current medical program including therapy for coronary artery disease. Also recommend to continue aggressive modification of cardiac risk factors. According to record patient can be followed per outpatient. Hypertension, stable Hyperlipidemia, stable medical management Diabetes type 2., Stable medical management History of CVA. (Mari Panda) Assessment and Plan atypical;/Non cardiac cp cleared by critsi d/w Beatrice d/bebo Guerra medically stable for d/c d/c home today see Orders see MRS f/u pcp f/u Dr barboza (Mary Grace Queen MD) Mari Panda Jul 01, 2016 09:41 Mary Grace Queen MD Jul 01, 2016 11:23 f/u pcp f/u Dr barboza (Mary Grace Queen MD) Mari Panda Jul 01, 2016 09:41 Mary Grace Queen MD Jul 01, 2016 11:23
[2016-07-01] MEDS ORDERED: PRAV10TA PO (11:26)
--- NOTE | 2016-07-01 14:07 | PD.CARD.PN ---
Subjective Subjective Remarks No CP or SOB, feels much better Objective Medications Current Medications Medications (Trade) Dose Ordered Sig/Christian Route Start Time Stop Time Status Last Admin (NS Flush) 2 ml UNSCH PRN IV FLUSH 06/30/16 07:00 (NS Flush) 2 ml BID IV FLUSH 06/30/16 09:00 07/01/16 08:18 (Tylenol) 650 mg Q4H PRN PO 06/30/16 07:00 (Zofran Inj) 4 mg Q6H PRN IVP 06/30/16 07:00 (Heparin Inj) 5,000 units Q12H SQ 06/30/16 08:00 07/01/16 08:17 (Narcan Inj) 0.4 mg UNSCH PRN IV 06/30/16 07:00 (Nitroglycerin 2% Oint) 1 inch Q6HR TOP 06/30/16 07:00 07/01/16 06:00 (Nitrostat Sl) 0.4 mg Q5M PRN SL 06/30/16 07:00 Vital Signs / I&O Vital Signs Date Time Temp Pulse Resp B/P Pulse Ox O2 Delivery O2 Flow Rate FiO2 07/01/16 08:16 94 21 07/01/16 07:44 98.0 71 17 108/55 96 07/01/16 07:27 66 07/01/16 03:02 97.8 61 20 137/63 95 07/01/16 00:07 98.7 60 18 120/58 93 06/30/16 23:31 78 06/30/16 20:09 98.0 65 20 122/57 97 06/30/16 19:21 59 06/30/16 15:52 97.7 67 17 124/57 97 I/O 06/30/16 06/30/16 06/30/16 07/01/16 07/01/16 07/01/16 07:00 15:00 23:00 07:00 15:00 23:00 Intake Total 400 ml Balance 400 ml Intake Oral 400 ml Physical Exam GENERAL: In NAD SKIN: Warm and dry. HEAD: Normocephalic. EYES: No scleral icterus. No injection or drainage. NECK: Supple, trachea midline. No JVD or lymphadenopathy. CARDIOVASCULAR: Regular rate and rhythm without murmurs, gallops, or rubs. RESPIRATORY: Breath sounds equal bilaterally. No accessory muscle use. GASTROINTESTINAL: Abdomen soft, non-tender, nondistended. MUSCULOSKELETAL: No cyanosis, or edema. Laboratory Laboratory Tests Test 06/30/16 07/01/16 14:10 06:56 White Blood Count 7.8 TH/MM3 5.3 TH/MM3 Red Blood Count 4.22 MIL/MM3 4.38 MIL/MM3 Hemoglobin 12.5 GM/DL 13.0 GM/DL Hematocrit 36.6 % 39.4 % Mean Corpuscular Volume 86.7 FL 89.8 FL Mean Corpuscular Hemoglobin 29.6 PG 29.7 PG Mean Corpuscular Hemoglobin 34.1 % 33.1 % Concent Red Cell Distribution Width 13.5 % 13.7 % Platelet Count 241 TH/MM3 204 TH/MM3 Mean Platelet Volume 8.1 FL 8.2 FL Troponin I LESS THAN 0.02 NG/ML Sodium Level 140 MEQ/L Potassium Level 4.3 MEQ/L Chloride Level 109 MEQ/L Carbon Dioxide Level 23.8 MEQ/L Anion Gap 7 MEQ/L Blood Urea Nitrogen 18 MG/DL Creatinine 1.11 MG/DL Estimat Glomerular Filtration 47 ML/MIN Rate Random Glucose 94 MG/DL Calcium Level 9.7 MG/DL Triglycerides Level 133 MG/DL Cholesterol Level 179 MG/DL LDL Cholesterol 95 MG/DL HDL Cholesterol 57.6 MG/DL Cholesterol/HDL Ratio 3.10 RATIO Imaging Last Impressions Chest X-Ray 06/30/16 0401 Signed Impressions: Service Date/Time: Thursday, June 30, 2016 04:12 - CONCLUSION: No acute disease. No significant change has occurred. Tonny Loya MD Assessment and Plan Problem List: (1) Chest pain (2) History of coronary artery disease (3) S/P coronary artery stent placement (4) Diabetes mellitus (5) Hyperlipemia (6) History of CVA (cerebrovascular accident) (7) Dementia Assessment and Plan CP resolved. No evidence of ACS. Continue current program. Aggressive risk factor modification. Increase activity. Jacob Engel MD Jul 01, 2016 14:07
--- NOTE | 2016-07-01 18:43 | HHI.DS ---
Discharge Summary Admission Date Jun 30, 2016 at 06:30 Discharge Date: Jul 01, 2016 Admitting Diagnosis CP Ro [place], h/o CAD Procedures none Brief History This was a pleasant 80-year-old female who had been having chest pain since 0300 this a.m. The patient was a poor historian with dementia and cannot recall history as well as current events of her pain unless prompted by family members. Most of the information I was getting is from the record. The family member stated she started having pain at 0300, was given nitroglycerin and began to feel better. According to the record the pain was sharp in character, was rated 4/10 on arrival. The patient denied any shortness of breath. Denied nausea, vomiting or diaphoresis. The patient reported to the ambulance service that her defibrillator had fired one time, but when questioned during my exam the patient was unaware whether it fired or not. She did state that on occasions "it feels funny." The patient was noted to have a bundle branch block on her EKG. The patient's family member did have her pacemaker with AICD card that was implanted on September 2014. According to the record the patient had a heart cath and an abnormal stress test, unknown date, and has had a stent placed. Currently the patient was awake, resting on the stretcher. Currently denied any chest pain. CBC/BMP: 07/01/16 0656 07/01/16 0656 Significant Findings Laboratory Tests Test 06/30/16 06/30/16 06/30/16 07/01/16 04:11 09:32 14:10 06:56 Monocytes (%) (Auto) 9.4 % (0.0-8.0) Eosinophils (%) (Auto) 5.1 % (0.0-4.0) Activated Partial 30.8 SEC Thromboplast Time (24.3-30.1) Chloride Level 112 MEQ/L 109 MEQ/L (98-107) (98-107) Carbon Dioxide Level 20.5 MEQ/L (21.0-32.0) Creatinine 1.15 MG/DL 1.11 MG/DL (0.50-1.00) (0.50-1.00) Estimat Glomerular Filtration 45 ML/MIN (>89) 47 ML/MIN (>89) Rate Troponin I LESS THAN 0.02 LESS THAN 0.02 LESS THAN 0.02 NG/ML NG/ML NG/ML (0.02-0.05) (0.02-0.05) (0.02-0.05) Imaging Last Impressions Chest X-Ray 06/30/16 0401 Signed Impressions: Service Date/Time: Thursday, June 30, 2016 04:12 - CONCLUSION: No acute disease. No significant change has occurred. Tonny Loya MD PE at Discharge PHYSICAL EXAMINATION GENERAL: This was a well-developed, well-nourished female who appeared to be in no acute distress. She was alert and awake, pleasant confusion HEAD: Normocephalic without any lesion or mass noted. Facial features appear symmetric. OROPHARYNGEAL: Oropharynx without erythema or edema. NECK: Supple. No nuchal rigidity or lymphadenopathy. Trachea midline without deviation. CARDIAC: Regular rhythm, regular rate, S1 and S2 are heard. LUNGS: Clear to auscultation bilaterally. ABDOMEN: Soft, nontender, no organomegaly or masses. Bowel sounds are heard in all four quadrants. No rebound. No guarding. EXTREMITIES: No edema. NEUROLOGICAL: affect appropriate. Pleasant confusion SKIN:Warm and moist Objective Remarks No chest pain today Physical Exam forgetful., pleasantly confused Hospital Course This was used during patient's brief stay for her treatment regimen and plan a care. Assessment and Plan 1. Chest pain, rule out [place] and cardiac ischemia. Cardiac consult was done and we Appreciate input. Patient has had no more chest pain since admission. This is cardiology recommendation atypical chest discomfort which is actually localized to her epigastrium. This pain is reproducible with chest palpation. It unlikely represents acute coronary syndrome. She has been ruled out for myocardial infarction by enzymes. Her EKG is unremarkable. She will be monitored on telemetry. Will continue her current medical program including therapy for coronary artery disease. Also recommend to continue aggressive modification of cardiac risk factors. According to record patient can be followed per outpatient. Hypertension, stable throughout hospital stay Hyperlipidemia, stable medical management Diabetes type 2., Stable medical management History of CVA., Stable medical management Dr. queen saw patient and this is his note and recommendation on day of discharge atypical;/Non cardiac cp cleared by cristi d/w Beatrice d/w Mari medically stable for d/c d/c home today see Orders see MRS f/u pcp f/u Mari Will Jul 01, 2016 09:41 Mary Grace Queen MD Jul 01, 2016 11:23 Pt Condition on Discharge: Stable Discharge Disposition: Discharge Home Discharge Instructions DIET: Follow Instructions for: Heart Healthy Diet Fluid Restrictions: none Activities you can perform: Regular-No Restrictions Follow up Referrals: Cardiology - 1 Month PCP Follow-up - 1 Month New Medications: Pravastatin (Pravastatin) 10 Mg Tab 10 MG PO DAILY Cholesterol Management #30 Ref 0 TAB Continued Medications: Amlodipine (Amlodipine) 10 Mg Tab 10 MG PO DAILY Blood Pressure Management #[address] (Aspirin EC) 81 Mg Tabdr 81 MG PO DAILY CAD #30 TAB Brinzolamide-Brimonidine Opth Drops (Simbrinza Opth Drops) 1-0.2% Susp 1 DROP EACH EYE BID Intraocular Pressure #1 Ref 0 BOTTLE Dabigatran (Pradaxa) 150 Mg Cap 150 MG PO DAILY Blood Clot Prevention #60 Ref 0 CAP Lisinopril (Lisinopril) 5 Mg Tab 2.5 MG PO DAILY CAD #30 TAB Loteprednol Opth Drops (Lotemax Opth Drops) 0.5 % Soln 1 DROP RIGHT EYE DAILY Inflammation #1 Ref 0 BOTTLE Metoprolol Tartrate (Metoprolol Tartrate) 50 Mg Tab 50 MG PO BID #60 Ref 0 TAB Sertraline (Zoloft) 25 Mg Tab 50 MG PO DAILY #30 Ref 0 TAB Spironolactone (Spironolactone) 25 Mg Tab 25 MG PO DAILY #30 Ref 0 TAB Mari Panda Jul 01, 2016 18:43
== END 2016-07-01 16:10 | disposition home or self-care (01) ==
LOC: NEPC 03:49 → NEDA 06:30 → NEPHCDU 09:28
PROVIDERS: ADMIT Specialist; ATTEND Specialist
DX: R07.89 Other chest pain (principal); I25.10 Atherosclerotic heart disease of native coronary artery without angina pectoris; I10 Essential (primary) hypertension; I44.7 Left bundle-branch block, unspecified; I48.0 Paroxysmal atrial fibrillation; F03.90 Unspecified dementia, unspecified severity, without behavioral disturbance, psychotic disturbance, mood disturbance, and anxiety; E78.5 Hyperlipidemia, unspecified; E11.9 Type 2 diabetes mellitus without complications; E78.00 Pure hypercholesterolemia, unspecified; H54.41 Blindness, right eye, normal vision left eye; H91.90 Unspecified hearing loss, unspecified ear; J44.9 Chronic obstructive pulmonary disease, unspecified; K21.9 Gastro-esophageal reflux disease without esophagitis; Z95.5 Presence of coronary angioplasty implant and graft; Z95.810 Presence of automatic (implantable) cardiac defibrillator; Z86.73 Personal history of transient ischemic attack (TIA), and cerebral infarction without residual deficits
CPT/HCPCS: 71010; 80048; 80053; 80061; 82550; 83690; 83735; 83880; 84484; 85025; 85027; 85610; 85730; 93005; 99285; G0378; J1644

== ENCOUNTER 2016-12-21 08:46 | Emergency (ER) | payer MEDICARE, BC ==
[~2016-12-21] VITALS: Ht 165.1 cm; Wt 70.0 kg
[~2016-12-21 08:46] MED LIST changes: +PRAV10TA PO
[2016-12-21 09:03] VITALS: BP 149/73; PULSE 70; RESP 18; TEMP 98.1; O2SAT 100
[2016-12-21 09:10] VITALS: BP 149/73; PULSE 69; RESP 18; TEMP 98.1; O2SAT 100
[2016-12-21] MEDS ORDERED: SODIUM CHLORIDE 0.9% FLUSH 10 ML FLUSH IVF PRN (09:15)
[2016-12-21 09:29] LABS: AUTOMATED NEUTROPHIL # 4.2 TH/MM3 (1.8-7.7); BASOPHIL # 0.1 TH/MM3 (0-0.2); BASOPHIL % 1.1 % (0.0-2.0); EOSINOPHIL # 0.2 TH/MM3 (0-0.4); HEMATOCRIT 40.9 % (35.0-46.0); HEMO FLAGS DIFF FINAL; LYMPH % 11.7 % (9.0-44.0); LYMPHOCYTE # 0.6 TH/MM3 (1.0-4.8); MEAN CELL VOLUME 88.4 FL (80.0-100.0); MEAN CORPUSCULAR HEMOGLOBIN 30.5 PG (27.0-34.0); MEAN CORPUSCULAR HGB CONC 34.5 % (32.0-36.0); MONO % 6.2 % (0.0-8.0); PLATELET COUNT 214 TH/MM3 (150-450); RED BLOOD COUNT 4.63 MIL/MM3 (4.00-5.30); WHITE BLOOD COUNT 5.4 TH/MM3 (4.0-11.0)
--- NOTE | 2016-12-21 09:34 | RADRPT ---
EXAM DATE/TIME: 12/21/2016 09:19 [facility] COMPARISON: CHEST SINGLE AP, June 30, 2016, 4:12. INDICATIONS : Chest pain MEDICAL HISTORY : Hypertension. Chronic obstructive pulmonary disease. Chronic obstructive pulmonary disease. SURGICAL HISTORY : None. ENCOUNTER: Initial ACUITY: 1 day PAIN SCORE: 0/10 LOCATION: chest FINDINGS: A single view of the chest demonstrates the lungs to be symmetrically aerated without evidence of mas s, infiltrate or effusion. The cardiomediastinal contours are unremarkable. Stable old healed left-s ided rib fractures. No significant changes compared to the prior exam. CONCLUSION: No acute disease. No significant change has occurred. Tonny Loya MD on December 21, 2016 at 9:28 Board Certified Radiologist. This report was verified electronically.
[2016-12-21 09:56] LABS: ANION GAP 11 MEQ/L (5-15); AST (GOT) 22 U/L (15-37); BICARBONATE 22.5 MEQ/L (21.0-32.0); BLOOD UREA NITROGEN 13 MG/DL (7-18); CHLORIDE 106 MEQ/L (98-107); GLOMERULAR FILTRATION RATE 42 ML/MIN (>89); POTASSIUM 4.1 MEQ/L (3.5-5.1); SODIUM (NA) 139 MEQ/L (136-145)
[2016-12-21 09:58] LABS: ALT (GPT) 27 U/L (10-53)
[2016-12-21 10:01] LABS: ALKALINE PHOSPHATASE 69 U/L (45-117); TOTAL BILIRUBIN ADULT 0.5 MG/DL (0.2-1.0)
--- NOTE | 2016-12-21 10:21 | PD ---
HPI Chief Complaint: Chest Pain Time Seen by Provider: 08:57 Travel History International Travel<30 days: No Contact w/Intl Traveler<30days: No Traveled to known affect area: No History of Present Illness HPI This is an 81-year-old female who has a history of coronary artery disease who presents to the emergency department having had an episode of palpitations while she was eating breakfast, constant, severe lasting for about 15 minutes associated with some chest tightness in the center of her chest, nonradiating which has since subsided. She denies any associated shortness of breath or diaphoresis and denies any nausea. She's had episodes like this before. In June she had a cardiac catheterization which demonstrated some persistent coronary artery disease and it was elected to manage her medically. She is followed by Dr. Reinoso. She says she feels fine now and her symptoms have subsided. PFSH Past Medical History Hx Anticoagulant Therapy: Yes (pradaxa) Asthma: No Blood Disorders: No Anxiety: Yes Depression: Yes Heart Rhythm Problems: Yes (murmur) Cancer: No Cardiovascular Problems: Yes (DC ) High Cholesterol: Yes Chemotherapy: No Chest Pain: No Congestive Heart Failure: No COPD: Yes Cerebrovascular Accident: Yes (CVA) Coronary Artery Disease: Yes Dementia: Yes Diabetes: Yes Patient Takes Glucophage: No Diminished Hearing: Yes Endocrine: Yes Gastrointestinal Disorders: Yes (BLOOD IN STOOL PER PATIENT REPORT) GERD: Yes Genitourinary: No Hypertension: Yes Immune Disorder: No Musculoskeletal: No Neurologic: Yes (CASAS'S PALSY, VERTIGO ) Psychiatric: No Reproductive: No (HX of Hysterectomy) Respiratory: Yes Immunizations Current: Yes Radiation Therapy: No Sleep Apnea: No Thyroid Disease: No Tetanus Vaccination: < 5 Years Influenza Vaccination: Yes ?: Not : 2 Para: 2 Past Surgical History Appendectomy: Yes Body Medical Devices: pacemaker Cholecystectomy: Yes Coronary Artery Bypass Graft: Yes Coronary Stent: Yes Eye Surgery: Yes (RIGHT EYE LENS IMPLANT) Hysterectomy: Yes Joint Replacement: Yes Tonsillectomy: Yes Other Surgery: Yes Family History Family Myocardial Infarction: Yes Social History Alcohol Use: No Tobacco Use: No Substance Use: No Allergies-Medications (Allergen,Severity, Reaction): Coded Allergies: Sulfa (Sulfonamide Antibiotics) (Unverified Allergy, Severe, ITCHING; PALPITATIONS, 10/21/16) cephalexin (Unverified Allergy, Severe, ITCHING; PALPITATIONS, 10/21/16) codeine (Unverified Allergy, Severe, ITCHING; PALPITATIONS, 10/21/16) penicillin G (Unverified Allergy, Severe, ITCHING; PALPITATIONS, 10/21/16) propoxyphene (Unverified Allergy, Severe, ITCHING; PALPITATIONS, 10/21/16) Uncoded Allergies: FLUORESCEIN DYE (Allergy, Severe, DIZZINESS; PASSED OUT; PALPITATIONS, 04/30) RED ANTS (Allergy, Severe, RASH; DIFFICULTY BREATHING; ITCHING, 04/30/07) Reported Meds & Prescriptions Reported Meds & Active Scripts Active Pravastatin 10 Mg Tab 10 Mg PO DAILY Lisinopril 5 Mg Tab 2.5 Mg PO DAILY Aspirin EC (Aspirin) 81 Mg Tabdr 81 Mg PO DAILY Reported Simbrinza Opth Drops (Brinzolamide-Brimonidine Opth Drops) 1-0.2% Susp 1 Drop EACH EYE BID Lotemax Opth Drops (Loteprednol Etabonate) 0.5 % Soln 1 Drop RIGHT EYE DAILY Pradaxa (Dabigatran) 150 Mg Cap 150 Mg PO DAILY Amlodipine (Amlodipine Besylate) 10 Mg Tab 10 Mg PO DAILY Metoprolol Tartrate 50 Mg Tab 50 Mg PO BID Spironolactone 25 Mg Tab 25 Mg PO DAILY Zoloft (Sertraline HCl) 25 Mg Tab 50 Mg PO DAILY Review of Systems ROS Limitations: Poor Historian Physical Exam Narrative GENERAL:Well appearing, no acute distress SKIN: Focused skin assessment warm and dry. HEAD: Atraumatic. Normocephalic. EYES: Pupils equal and round. No injection or drainage. ENT: Moist mucous membranes NECK: Trachea midline. CARDIOVASCULAR: Regular rate and rhythm. No murmur appreciated. RESPIRATORY: Clear to auscultation. Breath sounds equal bilaterally. GASTROINTESTINAL: Abdomen soft, non-tender, nondistended. MUSCULOSKELETAL: No obvious deformities. NEUROLOGICAL: Oriented to person and place but not time. No obvious cranial nerve deficits. Moving all extremities. PSYCHIATRIC: Appropriate mood and affect; insight and judgment normal. Data Data Last Documented VS Vital Signs Date Time Temp Pulse Resp B/P (MAP) Pulse Ox O2 Delivery O2 Flow Rate FiO2 12/21/16 09:10 100 Room Air 12/21/16 09:10 98.1 69 18 149/73 (98) Orders Orders Electrocardiogram (12/21/16 09:01) Complete Blood Count With Diff (12/21/16 09:01) Comprehensive Metabolic Panel (12/21/16 09:) Troponin I (12/21/16 09:) Chest, Single Ap (12/21/16 09:) Ecg Monitoring (12/21/16 09:) Bilateral Bp Monitoring (12/21/16 09:) Iv Access Insert/Monitor (12/21/16:) Oximetry (12/21/16 09:) Oxygen Administration (12/21/16 09:) Sodium Chloride 0.9% Flush (Ns Flush) (12/21/16:15) Troponin I (12/21/16 11:47) Labs Laboratory Tests Test 12/21/16:15 12/21/16 12:15 White Blood Count 5.4 TH/MM3 Red Blood Count 4.63 MIL/MM3 Hemoglobin 14.1 GM/DL Hematocrit 40.9 % Mean Corpuscular Volume 88.4 FL Mean Corpuscular Hemoglobin 30.5 PG Mean Corpuscular Hemoglobin Concent 34.5 % Red Cell Distribution Width 13.0 % Platelet Count 214 TH/MM3 Mean Platelet Volume 8.3 FL Neutrophils (%) (Auto) 78.0 % Lymphocytes (%) (Auto) 11.7 % Monocytes (%) (Auto) 6.2 % Eosinophils (%) (Auto) 3.0 % Basophils (%) (Auto) 1.1 % Neutrophils # (Auto) 4.2 TH/MM3 Lymphocytes # (Auto) 0.6 TH/MM3 Monocytes # (Auto) 0.3 TH/MM3 Eosinophils # (Auto) 0.2 TH/MM3 Basophils # (Auto) 0.1 TH/MM3 CBC Comment DIFF FINAL Differential Comment Blood Urea Nitrogen 13 MG/DL Creatinine 1.24 MG/DL Random Glucose 166 MG/DL Total Protein 7.8 GM/DL Albumin 3.6 GM/DL Calcium Level 10.1 MG/DL Alkaline Phosphatase 69 U/L Aspartate Amino Transf (AST/SGOT) 22 U/L Alanine Aminotransferase (ALT/SGPT) 27 U/L Total Bilirubin 0.5 MG/DL Sodium Level 139 MEQ/L Potassium Level 4.1 MEQ/L Chloride Level 106 MEQ/L Carbon Dioxide Level 22.5 MEQ/L Anion Gap 11 MEQ/L Estimat Glomerular Filtration Rate 42 ML/MIN Troponin I LESS THAN 0.02 NG/ML LESS THAN 0.02 NG/ML MDM Medical Decision Making Medical Screen Exam Complete: Yes Emergency Medical Condition: Yes Medical Record Reviewed: Yes (patient had a cardiac catheterization in June which demonstrated some coronary artery disease but no indication for intervention at that time. Dr. Reinoso decided to manage her medically.) Interpretation(s) EKG: Normal sinus rhythm, interventricular conduction delay, left ventricular hypertrophy similar to EKG and Lou No leukocytosis Mild renal insufficiency Troponin negative 2 Chest x-ray: No acute process Differential Diagnosis Acute coronary syndrome, anxiety, pulmonary embolism Narrative Course This is an 81-year-old female who has a history of dementia and known coronary artery disease who presents to the emergency department with an episode of palpitations and some chest discomfort that started this morning. It lasted for about 15 minutes and then subsided. EKG is unchanged from prior. Labs demonstrate a troponin which is negative 2. I spoke to Dr. Washington who was on- call for Dr. Reinoso who agreed with repeat troponin in 3 hours and if normal the patient can be discharged home being that she had an extensive cardiac workup earlier in the year and the decision has been made to manage her medically. She is completely asymptomatic currently and appears well. Diagnosis Primary Impression: Chest pain Qualified Codes: R07.9 - Chest pain, unspecified Patient Instructions: General Instructions Additional Instructions: If you develop severe chest pain, shortness of breath, sweating, lightheadedness , dizziness or difficulty breathing return to the emergency department immediately. Followup with your primary care physician in 2-3 days if your symptoms are not resolved. Med/Other Pt SpecificInfo: No Change to Meds Disposition: 01 DISCHARGE HOME Condition: Stable Yesica Neely MD Dec 21, 2016 10:21
--- NOTE | 2016-12-21 12:11 | EKG ---
Date Performed: 12/21/2016 Time Performed: 09:03:22 PTAGE: 81 years EKG: Sinus rhythm MARKED LEFT AXIS DEVIATION POSSIBLE LEFT VENTRICULAR HYPERTROPHY POSSIBLE ANTEROSEPTAL MYOCARDIAL IN FARCTION ABNORMAL ECG No significant change from prior electrocardiogram. PREVIOUS TRACING : 06/30/2016 03.52 DOCTOR: Ruddy Graves Interpretating Date/Time 12/21/2016 12:09:52
== END 2016-12-21 14:39 | disposition home or self-care (01) ==
LOC: NEPC 08:46
DX: R07.9 Chest pain, unspecified (principal); I25.10 Atherosclerotic heart disease of native coronary artery without angina pectoris; I10 Essential (primary) hypertension
CPT/HCPCS: 71010; 80053; 84484; 85025; 93005; 99284

== ENCOUNTER 2017-01-16 22:28 | Emergency (ER) | payer MEDICARE, BC ==
[~2017-01-16] VITALS: Ht 162.6 cm; Wt 73.0 kg
[~2017-01-16 22:28] MED LIST changes: -ASPI81TA11 PO; +ASPI81TA23 PO
[2017-01-16 22:35] VITALS: BP 153/72; PULSE 75; RESP 16; TEMP 98.7; O2SAT 99
[2017-01-16] MEDS ORDERED: MEMA1TAB2 PO (22:43)
[2017-01-16] MEDS ORDERED: DONE10TA7 PO (22:43)
[2017-01-16] MEDS ORDERED: PRAD75CA PO (22:43)
[2017-01-16] MEDS ORDERED: ACETAMINOPHEN 325 MG TAB PO ONE (23:45)
[2017-01-16 23:46] LABS: BLOOD, URINE NEG (NEG); COMMENT (UR) CULT NOT INDICATED; CULTURE IF INDICATED CULT NOT INDICATED; GLUCOSE,URINE NEG (NEG); KETONE, URINE NEG (NEG); MUCUS URINE FEW /lpf (OCC); NITRITE,URINE NEG (NEG); SQUAMOUS EPITHELIAL CELL URINE 1 /hpf (0-5); URINE COLOR YELLOW (YELLW/STRAW)
[2017-01-17 00:02] LABS: ALKALINE PHOSPHATASE 88 U/L (45-117); TOTAL BILIRUBIN ADULT 0.4 MG/DL (0.2-1.0)
[2017-01-17 00:03] LABS: AUTOMATED NEUTROPHIL # 4.7 TH/MM3 (1.8-7.7); BASOPHIL # 0.1 TH/MM3 (0-0.2); BASOPHIL % 0.9 % (0.0-2.0); EOSINOPHIL # 0.3 TH/MM3 (0-0.4); EOSINOPHIL % 4.2 % (0.0-4.0); HEMATOCRIT 39.6 % (35.0-46.0); HEMO FLAGS DIFF FINAL; LYMPH % 17.8 % (9.0-44.0); LYMPHOCYTE # 1.3 TH/MM3 (1.0-4.8); MEAN CELL VOLUME 89.9 FL (80.0-100.0); MEAN CORPUSCULAR HEMOGLOBIN 30.4 PG (27.0-34.0); MEAN CORPUSCULAR HGB CONC 33.8 % (32.0-36.0); MONO % 10.4 % (0.0-8.0); NEUT % 66.7 % (16.0-70.0); PLATELET COUNT 222 TH/MM3 (150-450); RED BLOOD COUNT 4.41 MIL/MM3 (4.00-5.30); RED CELL DISTRIBUTION WIDTH 13.2 % (11.6-17.2); WHITE BLOOD COUNT 7.1 TH/MM3 (4.0-11.0)
[2017-01-17 00:13] LABS: ALT (GPT) 28 U/L (10-53); ANION GAP 8 MEQ/L (5-15); AST (GOT) 31 U/L (15-37); BICARBONATE 25.9 MEQ/L (21.0-32.0); BLOOD UREA NITROGEN 16 MG/DL (7-18); CHLORIDE 109 MEQ/L (98-107); GLOMERULAR FILTRATION RATE 50 ML/MIN (>89); POTASSIUM 3.6 MEQ/L (3.5-5.1); SODIUM (NA) 143 MEQ/L (136-145)
--- NOTE | 2017-01-17 00:15 | PD ---
HPI Chief Complaint: Fall Time Seen by Provider: 23:00 Travel History International Travel<30 days: No Contact w/Intl Traveler<30days: No Traveled to known affect area: No History of Present Illness HPI Send 81-year-old woman who presents to the emergency department complaining of a fall. She states she is a history of an equilibrium problem and gets unsteady at times. She fell about a month or so ago and states this happens periodically. She was standing at the sink when she got dizzy and fell backwards. She hit her head and has a bruising on the back of her head. No LOC. She otherwise has been feeling generally well. She was at an [facility]. No other complaints. History Past Medical History Narrative Medical Diabetes Hypertension History of CVA, denies any residual functional deficits, has left-sided facial droop residual Hyperlipidemia Tetanus Vaccination: Unknown Influenza Vaccination: No : 2 Para: 2 Social History Alcohol Use: No Tobacco Use: No Allergies-Medications (Allergen,Severity, Reaction): Coded Allergies: Sulfa (Sulfonamide Antibiotics) (Unverified Allergy, Severe, ITCHING; PALPITATIONS, 01/16/17) cephalexin (Unverified Allergy, Severe, ITCHING; PALPITATIONS, 01/16/17) codeine (Unverified Allergy, Severe, ITCHING; PALPITATIONS, 01/16/17) penicillin G (Unverified Allergy, Severe, ITCHING; PALPITATIONS, 01/16/17) propoxyphene (Unverified Allergy, Severe, ITCHING; PALPITATIONS, 01/16/17) Uncoded Allergies: FLUORESCEIN DYE (Allergy, Severe, DIZZINESS; PASSED OUT; PALPITATIONS, 04/30) RED ANTS (Allergy, Severe, RASH; DIFFICULTY BREATHING; ITCHING, 04/30/07) Reported Meds & Prescriptions Reported Meds & Active Scripts Active Aspirin EC (Aspirin) 81 Mg Tabdr 81 Mg PO DAILY Reported Pradaxa (Dabigatran) 75 Mg Cap 75 Mg PO BID Memantine 10 Mg Tab 10 Mg PO BID Donepezil 10 Mg Tab 10 Mg PO DAILY Simbrinza Opth Drops (Brinzolamide-Brimonidine Opth Drops) 1-0.2% Susp 1 Drop EACH EYE BID Lotemax Opth Drops (Loteprednol Etabonate) 0.5 % Soln 1 Drop RIGHT EYE DAILY Amlodipine (Amlodipine Besylate) 10 Mg Tab 10 Mg PO DAILY Metoprolol Tartrate 50 Mg Tab 50 Mg PO BID Spironolactone 25 Mg Tab 25 Mg PO DAILY Zoloft (Sertraline HCl) 25 Mg Tab 50 Mg PO DAILY Review of Systems Except as stated in HPI: all other systems reviewed are Neg Physical Exam Narrative GENERAL: Well-appearing 81-year-old woman, no acute distress. SKIN: Focused skin assessment warm/dry. HEAD: Normocephalic. Small contusion on the posterior occiput. EYES: Pupils equal and round. No scleral icterus. No injection or drainage. ENT: No nasal bleeding or discharge. Mucous membranes pink and moist. NECK: Minimal midline tenderness. Full range of motion. CARDIOVASCULAR: Regular rate and rhythm. No murmur appreciated. RESPIRATORY: No accessory muscle use. Clear to auscultation. Breath sounds equal bilaterally. GASTROINTESTINAL: Abdomen soft, non-tender, nondistended. Hepatic and splenic margins not palpable. MUSCULOSKELETAL: No obvious deformities. No clubbing. No cyanosis. No edema. NEUROLOGICAL: Awake and alert. Mild left-sided facial droop. Motor grossly within normal limits. Normal speech. PSYCHIATRIC: Appropriate mood and affect; insight and judgment normal. Data Data Last Documented VS Vital Signs Date Time Temp Pulse Resp B/P (MAP) Pulse Ox O2 Delivery O2 Flow Rate FiO2 01/16/17 22:35 98.7 75 16 153/72 (99) 99 Room Air Orders Orders Complete Blood Count With Diff (01/16/17 23:07) Comprehensive Metabolic Panel (01/16/17 23:07) Electrocardiogram (01/16/17 ) Ct Brain W/O Iv Contrast(Rout) (01/16/17 ) Ct Cerv Spine W/O Contrast (01/16/17 ) Iv Access Insert/Monitor (01/16/17 23:07) Urinalysis - C+S If Indicated (01/16/17 23:07) Acetaminophen (Tylenol) (01/16/17 23:45) Labs Laboratory Tests Test 01/16/17 23:30 White Blood Count 7.1 TH/MM3 Red Blood Count 4.41 MIL/MM3 Hemoglobin 13.4 GM/DL Hematocrit 39.6 % Mean Corpuscular Volume 89.9 FL Mean Corpuscular Hemoglobin 30.4 PG Mean Corpuscular Hemoglobin Concent 33.8 % Red Cell Distribution Width 13.2 % Platelet Count 222 TH/MM3 Mean Platelet Volume 8.4 FL Neutrophils (%) (Auto) 66.7 % Lymphocytes (%) (Auto) 17.8 % Monocytes (%) (Auto) 10.4 % Eosinophils (%) (Auto) 4.2 % Basophils (%) (Auto) 0.9 % Neutrophils # (Auto) 4.7 TH/MM3 Lymphocytes # (Auto) 1.3 TH/MM3 Monocytes # (Auto) 0.7 TH/MM3 Eosinophils # (Auto) 0.3 TH/MM3 Basophils # (Auto) 0.1 TH/MM3 CBC Comment DIFF FINAL Differential Comment Urine Color YELLOW Urine Turbidity CLEAR Urine pH 6.0 Urine Specific [place] 1.014 Urine Protein NEG mg/dL Urine Glucose (UA) NEG mg/dL Urine Ketones NEG mg/dL Urine Occult Blood NEG Urine Nitrite NEG Urine Bilirubin NEG Urine Urobilinogen LESS THAN 2.0 MG/DL Urine Leukocyte Esterase TRACE Urine RBC 1 /hpf Urine WBC 2 /hpf Urine Squamous Epithelial Cells 1 /hpf Urine Mucus FEW /lpf Microscopic Urinalysis Comment CULT NOT INDICATED Blood Urea Nitrogen 16 MG/DL Creatinine 1.05 MG/DL Random Glucose 130 MG/DL Total Protein 7.7 GM/DL Albumin 3.5 GM/DL Calcium Level 9.3 MG/DL Alkaline Phosphatase 88 U/L Aspartate Amino Transf (AST/SGOT) 31 U/L Alanine Aminotransferase (ALT/SGPT) 28 U/L Total Bilirubin 0.4 MG/DL Sodium Level 143 MEQ/L Potassium Level 3.6 MEQ/L Chloride Level 109 MEQ/L Carbon Dioxide Level 25.9 MEQ/L Anion Gap 8 MEQ/L Estimat Glomerular Filtration Rate 50 ML/MIN [facility] Medical Decision Making Medical Screen Exam Complete: Yes Emergency Medical Condition: Yes Interpretation(s) My review of EKG: Sinus rhythm at a rate of 66, leftward axis, left bundle branch block, no definite evidence of acute ischemia. LABS: CBC is unremarkable. CMP is unremarkable. UA is unremarkable. Head CT negative C-spine CT: Degenerative changes. No evidence of acute fracture. Differential Diagnosis Fall, head injury, neck injury, other Narrative Course medical decision making INITIAL: 81-year-old woman with fall. History of balance problems. Looks well. No evidence of new stroke. We'll check screening labs, CT head for evidence of injury. Diagnosis Primary Impression: Dizziness Additional Impression: Fall Additional Instructions: Follow-up with your primary doctor in the next 2-4 days ago not completely well. Continue current medications. Return to the emergency department for any new or worsening symptoms. Med/Other Pt SpecificInfo: No Change to Meds Disposition: 01 DISCHARGE HOME Condition: Stable Raul Egan MD Jan 17, 2017 00:14
--- NOTE | 2017-01-17 00:20 | RADRPT ---
EXAM DATE/TIME: 01/17/2017 00:00 [facility] COMPARISON: CT BRAIN W/O CONTRAST, March 08, 2016, 21:21. INDICATIONS : Trauma; fall. RADIATION DOSE: 33.63 CTDIvol (mGy) MEDICAL HISTORY : Myocardial infarction. Chronic obstructive pulmonary disease. Diabetes mellitus type 2.HTN, CVA SURGICAL HISTORY : CABG ENCOUNTER: Initial ACUITY: 1 day PAIN SCALE: 5/10 LOCATION: cranial TECHNIQUE: Multiple contiguous axial images were obtained of the head. Using automated exposure control and adj ustment of the mA and/or kV according to patient size, radiation dose was kept as low as reasonably a chievable to obtain optimal diagnostic quality images. DICOM format image data is available electro nically for review and comparison. FINDINGS: CEREBRUM: The ventricles are normal for age. No evidence of midline shift, mass lesion, hemorrhage or acute in farction. No extra-axial fluid collections are seen. POSTERIOR FOSSA: The cerebellum and brainstem are intact. The 4th ventricle is midline. The cerebellopontine angle i s unremarkable. EXTRACRANIAL: The visualized portion of the orbits is intact. SKULL: The calvaria is intact. No evidence of skull fracture. CONCLUSION: 1. No evidence of acute intracranial pathology. No masses are identified. Jarod Gaviria MD on January 17, 2017 at 0:18 Board Certified Radiologist. This report was verified electronically.
--- NOTE | 2017-01-17 00:47 | RADRPT ---
EXAM DATE/TIME: 01/17/2017 00:00 [facility] COMPARISON: No previous studies available for comparison. INDICATIONS : RADIATION DOSE: CTDIvol (mGy) MEDICAL HISTORY : SURGICAL HISTORY : ENCOUNTER: ACUITY: PAIN SCALE: LOCATION: TECHNIQUE: Volumetric scanning of the cervical spine was performed. Multiplanar reconstructions in the sagittal, coronal and oblique axial planes were performed. Using automated exposure control and adjustment o f the mA and/or kV according to patient size, radiation dose was kept as low as reasonably achievable to obtain optimal diagnostic quality images. DICOM format image data is available electronically f or review and comparison. FINDINGS: CT of the cervical spine was performed in sagittal and axial planes. There is straightening of the no rmal cervical lordosis which may be secondary positioning or spasm. No focal areas of marrow replacem ent are identified. The craniocervical junction appears normal. Axial images were performed from C2-C 3 through C7-T1. There is multilevel disc space narrowing and marginal osteophyte formation maximal a t C5-C6. C2-C3: There is no evidence of disc protrusion or spinal canal stenosis. There is mild facet arthritis bilat erally. C3-C4: A small central protrusion is present impinging on the thecal sac but not significantly deforming the cord. There is no significant spinal canal stenosis. There is mild facet arthritis bilaterally. The neural foramina are clear bilaterally. C4-C5: There is mild annular bulge of the disc. There is mild facet arthritis bilaterally. C5-C6: There is osteophytic ridging asymmetric to the right. There is mild right sided neural foraminal narr owing. There is no significant spinal canal stenosis. C6-C7: There is mild diffuse annular bulge of the disc. The neural foramina are clear bilaterally. There is no significant spinal canal stenosis. C7-T1: No significant abnormalities identified. CONCLUSION: 1. Moderate degenerative changes as described above. There is no evidence of acute fracture. Jarod Gaviria MD on January 17, 2017 at 0:41 Board Certified Radiologist. This report was verified electronically.
[2017-01-17 03:07] VITALS: BP 117/78; PULSE 78; RESP 16; O2SAT 99
--- NOTE | 2017-01-17 12:35 | EKG ---
Date Performed: 01/16/2017 Time Performed: 22:50:20 PTAGE: 81 years EKG: Sinus rhythm Left axis deviation Intraventricular conduction disturbance Probable left ventricular hypertrophy wi th secondary ST-T changes Poor R-wave progression, which may be normal variant ABNORMAL ECG PREVIOUS TRACING : 12/21/2016 09.03 Since previous tracing, no significant change. DOCTOR: Willie Villasenor Interpretating Date/Time 01/17/2017 12:33:26
== END 2017-01-17 06:50 | disposition home or self-care (01) ==
LOC: NEPC 22:28
DX: R42 Dizziness and giddiness (principal); I44.7 Left bundle-branch block, unspecified; E11.9 Type 2 diabetes mellitus without complications; I10 Essential (primary) hypertension; I69.998 Other sequelae following unspecified cerebrovascular disease; E78.5 Hyperlipidemia, unspecified; R94.31 Abnormal electrocardiogram [ECG] [EKG]
CPT/HCPCS: 70450; 72125; 80053; 81001; 85025; 93005; 99285